=== PATIENT | female | born 1935 | race Caucasian/White ===

== ENCOUNTER 2019-07-28 10:36 | Inpatient (IN) | payer MEDICARE, OTHER, SELFPAY ==
[2019-07-28] VITALS (11 sets, daily range): BP systolic 133–187; BP diastolic 73–102; PULSE 57–86; RESP 16–19; TEMP 36.6–37; O2SAT 90–97; BMI 30.9
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
--- NOTE | 2019-07-28 10:44 | XRR_ITS ---
PROCEDURE INFORMATION: Exam: XR Chest, 1 View Exam date and time: 07/28/2019 10:50 AM Age: 83 years old Clinical indication: Other: AMS TECHNIQUE: Imaging protocol: XR of the chest Views: 1 view. COMPARISON: CR Chest 1 [place] [id number] 01/23/2019 2:54 PM FINDINGS: Tubes, catheters and devices: There are several EKG leads overlying the chest. Lungs: There is bibasilar atelectasis. Pleural space: Unremarkable. No pleural effusion. No pneumothorax. Heart/Mediastinum: There is cardiomegaly. There is prominence of the pulmonary vascular markings. These findings may represent congestive heart failure. Vasculature: There are calcified atherosclerotic changes of the aorta. Bones/joints: Patient is status post ORIF of a left clavicle fracture, please correlate with surgical history. There is moderate osteopenia. Soft tissues: There are surgical yulisa overlying the right axilla. XR/XR chest 1V portable [id number] IMPRESSION: There is cardiomegaly. There is prominence of the pulmonary vascular markings. These findings may represent congestive heart failure.
--- NOTE | 2019-07-28 10:48 | ECG_ITS ---
Measurements Intervals [place] Rate: 62 P: 95 VT: 283 QRS: -26 QRSD: 93 T: 26 QT: 447 QTc: 456 SINUS RHYTHM WITH FIRST DEGREE AV BLOCK INCOMPLETE RIGHT BUNDLE BRANCH BLOCK INFERIOR MYOCARDIAL INFARCTION, PROBABLY OLD MODERATE T-WAVE ABNORMALITY, CONSIDER ANTEROLATERAL ISCHEMIA Compared to ECG 01/23/2019 12:00:05 First degree AV block now present Incomplete right bundle-branch block now present Myocardial infarct finding still present T-wave abnormality still present Possible ischemia still present Electronically Signed On 07-28-2019 13:28:00 BOAT RIGGER by Britni Trujillo M.D. [id number]
[2019-07-28 11:28] LABS: ABG PCO2 38.4 mmHg (35-45); ABG PH Result 7.45 (7.35-7.45); Arterial Blood Gas Hematocrit 40.2 % (37-47); Base Excess ABG 2.2 mmol/L (-2.0-2.0); Blood Gas Allen Test Pos; Blood Gas Sample Site Radial, left; Blood Gas Sample Type Arterial; HCO3 ABG 26.4 mmol/L (22-26); PO2 ABG 67.6 mmHg (80.0-100.0)
[2019-07-28] MEDS: acetaminophen 500 mg Tablet 1000 MG PO (11:38)
[2019-07-28] MEDS: sodium chloride 0.9% 500 ML IV (11:39)
[2019-07-28 11:53] LABS: Basophils % 0.7 %; Eosinophils # 0.1 10^3/uL (0.0-0.8); Eosinophils % 3.6 %; Hematocrit 38.3 % (37.0-47.0); Hemoglobin 12.7 g/dL (11.5-15.3); Lymphocytes # 0.4 10^3/uL (0.8-4.8); Lymphocytes % 11.7 %; Mean Corpuscular HGB Conc 33.2 g/dL (30.0-36.0); Mean Corpuscular Hemoglobin 30.5 pg (28.0-34.0); Mean Corpuscular Volume 91.8 fL (81-99); Mean Platelet Volume 12.2 fL (7.4-10.4); Monocytes # 0.3 10^3/uL (0.2-0.9); Monocytes % 9.1 %; Neutrophils # 2.3 10^3/uL (1.8-7.7); Neutrophils % 74.6 %; Nucleated Red Blood Cells % 0 %; Platelet Count 61 10^3/cmm (130-400); Red Blood Count 4.17 10^6/uL (4.1-5.3); White Blood Count 3.1 10^3/uL (4.0-10.0)
[2019-07-28 12:00] LABS: INR 1.25 (0.8-1.2)
[2019-07-28 12:06] LABS: Lactic Sepsis W/Reflex 1.3 mmol/L (0.5-2.2)
[2019-07-28 12:08] LABS: Alanine Aminotransferase 20 U/L (0-33); Albumin Level 4.4 g/dL (3.5-5.2); Alkaline Phosphatase 111 IU/L (35-105); Aspartate Amino Transferase 33 U/L (0-32); Blood Urea Nitrogen 14 mg/dL (8-23); Calcium 10.1 mg/Dl (8.8-10.2); Carbon Dioxide 27 mmol/L (22-29); Chloride 103 mmol/L (98-107); Globulin 2.8 g/dL (1.3-4.6); Glucose 108 mg/dL (74-106); Lipase 16 U/L (13-60); Magnesium 2.1 mg/dL (1.7-2.3); Sodium 141 mmol/L (136-145); Total Bilirubin 3.1 mg/dL (0.15-1.2); Total Protein 7.2 g/dL (6.6-8.7)
[2019-07-28 12:35] LABS: Glucose Urine UA Norm (Normal); Protein Urine Neg (Negative); Specific Gravity, Urine 1.005 (1.005-1.030); Urine Appearance Clear (CLEAR); Urine Color Yellow (Yellow); pH Urine 7 (5-7)
[2019-07-28 12:36] LABS: Bilirubin Urine Neg (NEGATIVE); Blood Urine Neg (Negative); Ketones Urine Negative (Negative); Leukocyte Esterase Urine Trace (Negative); Nitrate Urine Negative (Negative); Urobilinogen Urine 1 mg/dL (Negative)
--- NOTE | 2019-07-28 12:40 | CTR_ITS ---
PROCEDURE INFORMATION: Exam: CT Abdomen And Pelvis With Contrast Exam date and time: 07/28/2019 1:46 PM Age: 83 years old Clinical indication: Abdominal pain; Generalized TECHNIQUE: Imaging protocol: Computed tomography of the abdomen and pelvis with intravenous contrast. Total DLP: 1802.54 mGy-cm Radiation optimization: All CT scans at this facility use at least one of these dose optimization techniques: automated exposure control; mA and/or kV adjustment per patient size (includes targeted exams where dose is matched to clinical indication); or iterative reconstruction. Contrast material: OMNI 300; Contrast volume: 95 ml; Contrast route: LT AC; COMPARISON: CT Pelvis w IV contrast* [id number] 01/23/2019 10:27 PM FINDINGS: Heart: There is cardiomegaly. Liver: The liver has a nodular contour. There is a 1.8 cm low-density lesion in the right hepatic lobe. Although this does not measure fluid density, this may be due to volume averaging. Gallbladder and bile ducts: Normal. No calcified stones. No ductal dilation. Pancreas: Normal. No ductal dilation. Spleen: There is splenomegaly. Adrenals: Normal. No mass. Kidneys and ureters: Normal. No hydronephrosis. Stomach and bowel: There is a duodenal diverticulum. Appendix: No evidence of appendicitis. Intraperitoneal space: Unremarkable. No free air. No significant fluid collection. Vasculature: There are atherosclerotic changes of the coronary arteries. There are multiple abdominal varices. There are calcified atherosclerotic changes of the aorta. Lymph nodes: Unremarkable. No enlarged lymph nodes. Bladder: The urinary bladder is moderately distended. There is air in the urinary bladder, please correlate with recent instrumentation. Reproductive: There is a calcified uterine fibroid. Bones/joints: There are several pelvic fractures, reported previously. Postsurgical changes are noted of the lumbar spine. Postsurgical changes are noted involving the right femur. Soft tissues: Unremarkable. CT/CT abdomen pelvis w con* [id number] IMPRESSION: 1. Constellation of findings consistent with cirrhosis and portal venous hypertension. 2. There is a 1.8 cm low-density lesion in the right hepatic lobe. Although this does not measure fluid density, this may be due to volume averaging. Direct comparison to prior exams is recommended. In the absence of prior studies for comparison purposes, close followup imaging is necessary considering the presence of cirrhosis and corresponding increased risk of malignancy. 3. The urinary bladder is moderately distended. There is air in the urinary bladder, please correlate with recent instrumentation. Radiation Dose CTDIVOL = (mGy): DLP = 1802.54 (mGy-cm)
[2019-07-28 12:45] LABS: Influenza A by IFA Negative (Negative); Influenza B by IFA Negative (Negative)
--- NOTE | 2019-07-28 12:48 | ECG_ITS ---
Measurements Intervals [place] Rate: 60 P: 93 NJ: 281 QRS: -1 QRSD: 93 T: 62 QT: 454 QTc: 456 SINUS RHYTHM WITH FIRST DEGREE AV BLOCK ST DEVIATION AND MODERATE T-WAVE ABNORMALITY, CONSIDER ANTERIOR ISCHEMIA [-0.1+ mV T WAVE IN V3/V4] Compared to ECG 07/28/2019 11:18:50 Incomplete right bundle-branch block no longer present Myocardial infarct finding no longer present T-wave abnormality still present Possible ischemia still present Electronically Signed On 07-28-2019 14:58:59 SAFETY REPRESENTATIVE by Britin Trujillo M.D. [id number]
[2019-07-28 12:52] LABS: Mucus Urine TRACE
[2019-07-28 12:54] LABS: Add Urine Culture? No; Bacteria Urine 1+; RBC Urine 0-4 /hpf (0-2); Squamous Epithelial Cell Urine 0-4 (0-5)
[2019-07-28] MEDS: piperacillin-tazobactam 3.375 GM in sodium chloride 0.9% (plus) 50 ML IV (12:58)
[2019-07-28 13:12] LABS: Oxygen Device ROOM AIR
[2019-07-28 14:51] LABS: Ammonia 46 umol/L (11-51)
--- NOTE | 2019-07-28 16:36 | P.HP_ITS ---
Providers/Chief Complaint Primary Care Provider: XIN Leal Chief Complaint: AMS History of Present Illness Rachelle Apodaca is a 83 year old female with a past medical history of liver cirrhosis with esophageal varices, chronic thrombocytopenia, hepatic encephalopathy, hypothyroidism, hyperlipidemia, GERD, bilateral cataracts, right Cedeno's palsy, history of intertrochanteric fracture right hip status post ORIF, bilateral pubic rami fractures, breast cancer, dementia who presents to the emergency room with her daughter due to complaints altered mental status, weakness, increased urinary frequency. Patient's daughter is at bedside who provides most of the history. Patient's daughter states that back in January, patient had a fall, had a intertrochanteric fracture of the right hip, status post open reduction internal fixation. Patient daughter states that since then, she has been doing well at home, she takes care of her mom at home, she is alert oriented x1, is quite forgetful at times, has short-term memory loss, some developing long-term memory loss, has episodes of confusion which are intermittent, does ambulate with a walker with assistance, requires help with activity of daily living, but can do things such as feed herself. Patient daughter states that last night patient had increased urinary frequency, had episodes of more than normal confusion, agitation, poor appetite, did not eat her dinner last night. Woke up this morning had more episodes of confusion, agitation, poor appetite, did not get out of bed, was fairly weak. Patient's daughter states that she has to some degree noticed for the past few months slurring of her speech, she has right Cedeno's palsy, so is hard to gauge if she has facial droop, no focal neurologic deficits, patient did not voice any significant complaints to family members. No history of strokes in the past. No significant receptive aphasia. No significant productive aphasia. No complaints of lightheadedness. No complaints of dizziness. She only complains of some neck pain, some feeling in her chest, and right knee pain, right hip pain Review of Systems Const: Denies: fever or chills Eyes: Reports: change in vision ENMT: Reports: nasal discharge Card: Denies: chest pain, lightheadedness or syncope Resp: Denies: shortness of breath or productive cough GI: Denies: abdominal pain, nausea, vomiting, vomiting blood or diarrhea : Reports: urinary frequency; Denies: flank pain, difficulty urinating, painful urination, urinary urgency, urinary hesitancy or urinary dribbling Musc: Reports: neck pain and joint pain Skin/Breast: Reports: rash Neuro: Reports: weakness in extremities, difficulty walking and confusion; Denies: headache, numbness in extremities, dizziness, vertigo or seizure-like activity Endo: Reports: excessive urination Mauricio/Lymph: Reports: easy bruising Medications/Allergies Home Medications Medication Instructions Recorded Confirmed Last Taken Type ascorbic acid (vitamin C) [Vitamin 500 mg PO DAILY 07/28/19 07/28/19 07/27/19 History C] calcium carbonate-vitamin D3 1 tab PO DAILY 07/28/19 07/28/19 07/27/19 History [Calcium 600 + D(3)] cranberry 15,000 mg PO DAILY PRN 07/28/19 07/28/19 Unknown History donepezil 10 mg PO BEDTIME 07/28/19 07/28/19 07/27/19 History furosemide [Lasix] 20 mg PO DAILY PRN 07/28/19 07/28/19 Unknown History lactulose [Constulose] 15 ml PO DAILY 07/28/19 07/28/19 07/27/19 History levothyroxine 125 mcg PO DAILY 07/28/19 07/28/19 07/27/19 History memantine 10 mg PO BID 07/28/19 07/28/19 07/27/19 History mirtazapine 15 mg PO BEDTIME 07/28/19 07/28/19 07/27/19 History multivitamin [Multiple Vitamins] 1 tab PO DAILY 07/28/19 07/28/19 07/27/19 History nadolol 20 mg PO DAILY 07/28/19 07/28/19 07/27/19 History oxycodone 5 mg PO Q6H PRN 07/28/19 07/28/19 07/27/19 History pantoprazole [Protonix] 40 mg PO DAILY 07/28/19 07/28/19 07/27/19 History quetiapine [Seroquel] 50 mg PO BID 07/28/19 07/28/19 07/27/19 History vitamin B complex [Super B-50 1 cap PO DAILY 07/28/19 07/28/19 07/27/19 History Complex] Allergies Allergy/AdvReac Type Severity Reaction Status Date / Time cefaclor [From Ceclor] Allergy Unknown Verified 07/28/19 10:49 ceftazidime [From Fortaz] Allergy Unknown Verified 07/28/19 10:49 lorazepam [From Ativan] Allergy Unknown Verified 07/28/19 10:49 Sulfa (Sulfonamide Allergy Unknown Verified 07/28/19 10:49 Antibiotics) PFSH Acute PFSH: Statuses (acute, chronic, etc) shown below reflect problem list status as previously entered and may not be historically accurate Medical History (Updated 07/28/19 @ 16:47 by Lobo Lew MD) Bilateral pubic rami fractures (Acute) Closed right femoral fracture (Acute) Hepatic encephalopathy (Acute) History of breast cancer (Acute) History of esophageal varices (Acute) 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 (Acute) Thrombocytopenia (Acute) Surgical History (Updated 07/28/19 @ 16:49 by Lobo Lew MD) H/O knee surgery (Acute) H/O mastectomy (Acute) History of hip surgery (Acute) Family History (Updated 07/28/19 @ 16:49 by Lobo Lew MD) Daughter CAD (coronary artery disease) Other Diabetes Social History (Updated 07/28/19 @ 16:49 by Lobo Lew MD) Smoking and tobacco status: never smoked Alcohol intake: never Substance/Drug Use: never Vitals/I&O/Wt Last Vital Signs Temp 97.9 F 07/28/19 10:37 Pulse 72 07/28/19 16:00 Resp 19 H 07/28/19 16:00 BP 165/85 07/28/19 16:00 Pulse Ox 92 07/28/19 16:00 07/28/19 07/28/19 07/28/19 06:59 14:59 22:59 Intake Total 650 / 650 Balance 650 / 650 Weight last 48 hrs Weight 81.647 kg Physical Exam Const: COMMON NORMALS: no apparent distress GENERAL APPEARANCE: cooperative and well kempt NUTRITIONAL APPEARANCE: obese ORIENTATION/CONSCIOUSNESS: Yes awake, Yes oriented to person and Yes confused; not oriented to place and not oriented to time HENMT: COMMON NORMALS: normocephalic Eye: COMMON NORMALS: PERRL and EOMs intact bilaterally Neck/C-Spine: COMMON NORMALS: full ROM, no lymphadenopathy and no JVD Lymph: LYMPHATIC: no lymphadenopathy noted Resp: COMMON NORMALS: normal respiratory effort, no retractions, no use of accessory muscles and clear to auscultation bilaterally Cardio: COMMON NORMALS: no JVD, regular rate, regular rhythm, S1 normal heart sound, S2 normal heart sound, no gallops, no clicks, no murmurs and no rub GI: COMMON NORMALS: normal to inspection, nondistended, normoactive bowel sounds, soft to palpation, non-tender, no hepatosplenomegaly, no masses and no bruits : COMMON NORMALS: Yes no CVA tenderness Back/Pelvis: COMMON NORMALS: no CVA tenderness Extremity: COMMON NORMALS: full ROM, no clubbing, cyanosis or edema, no calf tenderness and no pedal edema Neuro: COMMON NORMALS: CN's II-XII intact bilaterally, moves all extremities and no focal motor deficits SENSORIUM/ORIENTATION: Yes alert, Yes oriented to person, No oriented to place, No oriented to time and Yes fluctuating sensorium SPEECH: speech normal and other (Slight slurring of her speech at times,) MOTOR EXAM: strength 5/5 throughout COORDINATION: [id number] test normal (Unable to cooperate with exam) Psych: APPEARANCE: Yes grossly normal ATTITUDE: Yes agitated (Does become agitated at times,) SPEECH: Yes normal speech and Yes slurred (At times does have slurred speech, intermittent, chronic as per family) ATTENTION/CONCENTRATION: Yes attention grossly intact MEMORY/COGNITION: Yes memory grossly impaired Skin: NARRATIVE SKIN EXAM: Does have bruising on bilateral arms Data Micro: Micro: Microbiology 07/28/19 11:34 Blood Culture - Pr eliminary Blood SPE[facility]IMEN [facility] 07/28/19 11:41 Blood Culture - Pr eliminary Blood SPECIMEN [facility] Imaging^: CT Head: Radiologist's impression: FINDINGS: Brain: There is low attenuation abnormality in the periventricular white matter, likely reflecting chronic microvascular ischemic disease. Ventricles: Normal. No ventriculomegaly. Bones/joints: Unremarkable. No acute fracture. Sinuses: There is mild sinus disease. Mastoid air cells: Visualized mastoid air cells are well aerated. Soft tissues: Unremarkable. CT Abd/Pel: Radiologist's impression: 1. Constellation of findings consistent with cirrhosis and portal venous hypertension. 2. There is a 1.8 cm low-density lesion in the right hepatic lobe. Although this does not measure fluid density, this may be due to volume averaging. Direct comparison to prior exams is recommended. In the absence of prior studies for comparison purposes, close followup imaging is necessary considering the presence of cirrhosis and corresponding increased risk of malignancy. 3. The urinary bladder is moderately distended. There is air in the urinary bladder, please correlate with recent instrumentation. CXR: Radiologist's impression: There is cardiomegaly. There is prominence of the pulmonary vascular markings. These findings may represent congestive heart failure. EKG^: EKG 1: I personally reviewed and interpreted this EKG as follows: My Interpretation: T wave inversions V1 to V4, first-degree AV block, incomplete RBBB, no acute ST wave changes Prior ECG tracings: not available for review A&P Assessment and plan (1) Altered mental status: -Likely secondary to urinary tract infection -Patient follows neurologic examination, no focal neurologic deficits noted, did have intermittent slurring of her speech, but daughter states that she is had a chronic history of it for the past few months, patient CT of her head did show low attenuation abnormality in the periventricular white matter,likely reflecting chronic microvascular ischemic diseaseand If an acute infarct is clinically suspected, consider MRI with diffusion imaging Plan: -Follow urine cultures, blood cultures -Continue Primaxin -We will continue neuro checks, place the patient on statin, patient is to have a high risk to start on aspirin due to esophageal varices, and thrombocytopenia, patient's family is aware, advised the risk and benefits, agreed to proceed to hold -Consider MRI if mental status does not improve -DVT prophylaxis SCDs, anticoagulation contraindicated due to esophageal varices and thrombocytopenia Status: Acute Code(s): R41.82 - Altered mental status, unspecified (2) Urinary tract infection in elderly patient: As above Status: Acute Code(s): N39.0 - Urinary tract infection, site not specified (3) Liver lesion, right lobe: Will require outpatient follow-up Status: Acute Code(s): K76.9 - Liver disease, unspecified (4) Breast lump in female: Is being followed as outpatient Status: Acute Code(s): N63.0 - Unspecified lump in unspecified breast (5) GERD (gastroesophageal reflux disease): Status: Acute Code(s): K21.9 - Gastro-esophageal reflux disease without esophagitis (6) Hyperlipidemia: Status: Acute Code(s): E78.5 - Hyperlipidemia, unspecified (7) Bilateral cataracts: Status: Acute Code(s): H26.9 - Unspecified cataract (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 (9) Hepatic encephalopathy: Ammonia levels within normal limits Status: Acute Code(s): K72.90 - Hepatic failure, unspecified without coma (10) Thrombocytopenia: Status: Acute Code(s): D69.6 - Thrombocytopenia, unspecified (11) History of esophageal varices: No complaints of hemoptysis Status: Acute Code(s): Z87.19 - Personal history of other diseases of the digestive system (12) 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: Status: Acute Code(s): K75.81 - Nonalcoholic steatohepatitis (FLOYD); K74.60 - Unspecified cirrhosis of liver Attestations Medical Necessity Statement*: Patient requires inpatient admission, greater than 2 midnights, for altered mental status secondary to UTI Coding Level of Care Code Acute Central Office Equipment Installer for Chg 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
--- NOTE | 2019-07-28 16:48 | ECG_ITS ---
Measurements Intervals [place] Rate: 58 P: 87 MI: 273 QRS: -6 QRSD: 106 T: 65 QT: 494 QTc: 488 SINUS BRADYCARDIA WITH FIRST DEGREE AV BLOCK ST DEVIATION AND MODERATE T-WAVE ABNORMALITY, CONSIDER ANTERIOR ISCHEMIA Compared to ECG 07/28/2019 12:49:26 Sinus rhythm no longer present T-wave abnormality still present Possible ischemia still present Electronically Signed On 07-29-2019 11:24:21 MANAGER TRACK by Britni Trujillo M.D. [email or web address]
--- NOTE | 2019-07-28 17:00 | W.ED.AMS ---
HPI - Altered Mental Status General: Chief Complaint: Altered Mental Status Stated Complaint: AMS Time Seen by Provider: 07/28/19 10:38 PFSH ED PFSH: Statuses (acute, chronic, etc) shown below reflect problem list status as previously entered and may not be historically accurate Medical History (Updated 07/28/19 @ 16:47 by Lobo Lew MD) Bilateral pubic rami fractures (Acute) Closed right femoral fracture (Acute) Hepatic encephalopathy (Acute) History of breast cancer (Acute) History of esophageal varices (Acute) 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 (Acute) Thrombocytopenia (Acute) Surgical History (Updated 07/28/19 @ 16:49 by Lobo Lew MD) H/O knee surgery (Acute) H/O mastectomy (Acute) History of hip surgery (Acute) Family History (Updated 07/28/19 @ 16:49 by Lobo Lew MD) Daughter CAD (coronary artery disease) Other Diabetes Social History (Updated 07/28/19 @ 16:49 by Lobo Lew MD) Smoking and tobacco status: never smoked Alcohol intake: never Substance/Drug Use: never Course Vital Signs: Vital signs: Vital Signs Temperature 97.9 F 07/28/19 10:37 Pulse Rate 72 07/28/19 16:00 Respiratory Rate 19 H 07/28/19 16:00 Blood Pressure 165/85 07/28/19 16:00 Pulse Oximetry 92 07/28/19 16:00 MDM - Altered Mental Status Lab Data: Labs: Lab Results 07/28/19 07/28/19 07/28/19 Range/Units 11:17 11:34 11:34 WBC 3.1 L (4.0-10.0) 10^3/ uL RBC 4.17 (4.1-5.3) 10^6/u L Hgb 12.7 (11.5-15.3) g/dL Hct 38.3 (37.0-47.0) % MCV 91.8 (81-99) fL MCH 30.5 (28.0-34.0) pg MCHC 33.2 (30.0-36.0) g/dL RDW 15.0 (12.1-15.1) % Plt Count 61 L (130-400) 10^3/c mm MPV 12.2 H (7.4-10.4) fL Neut % (Auto) 74.6 % Lymph % (Auto) 11.7 % Park % (Auto) 9.1 % Eos % (Auto) 3.6 % Baso % (Auto) 0.7 % Neut # (Auto) 2.3 (1.8-7.7) 10^3/u L Lymph # (Auto) 0.4 L (0.8-4.8) 10^3/u L Park # (Auto) 0.3 (0.2-0.9) 10^3/u L Eos # (Auto) 0.1 (0.0-0.8) 10^3/u L Baso # (Auto) 0.0 (0.0-0.1) 10^3/u L Nucleated RBC % (a uto) 0 % Nucleated RBCs # 0.0 /100WBC PT (10.5-13.3) SECO NDS INR (0.8-1.2) Specimen Type Arterial Sample Site Radial, left ABG pH 7.45 (7.35-7.45) ABG pCO2 38.4 (35-45) mmHg ABG pO2 67.6 L (80.0-100.0) mmH g ABG HCO3 26.4 H (22-26) mmol/L ABG Base Excess 2.2 H (-2.0-2.0) mmol/ L Krishna Test Pos Hematocrit 40.2 (37-47) % O2 Delivery Device Room air FiO2 21.0 % Specimen Drawn By Duner Chief Credit Officer ID ed Sodium 141 (136-145) mmol/L Potassium 4.0 (3.5-5.1) mmol/L Chloride 103 (98-107) mmol/L Carbon Dioxide 27 (22-29) mmol/L Anion Gap 15.0 (5-19) BUN 14 (8-23) mg/dL Creatinine 0.8 (0.5-0.9) mg/dL Glucose 108 H (74-106) mg/dL Lactic Acid (0.5-2.2) mmol/L Calcium 10.1 (8.8-10.2) mg/Dl Magnesium 2.1 (1.7-2.3) mg/dL Total Bilirubin 3.1 H (0.15-1.2) mg/dL AST 33 H (0-32) U/L ALT 20 (0-33) U/L Alkaline Phosphata se 111 H (35-105) IU/L Ammonia (11-51) umol/L Troponin I 6 Hour (0-10) ng/L Troponin T Baselin e (0-10) ng/mL Total Protein 7.2 (6.6-8.7) g/dL Albumin 4.4 (3.5-5.2) g/dL Globulin 2.8 (1.3-4.6) g/dL Lipase 16 (13-60) U/L Urine Color (Yellow) Urine Appearance (CLEAR) Urine pH (5-7) Ur Specific Gravit y (1.005-1.030) Urine Protein (Negative) Urine Glucose (UA) (Normal) Urine Ketones (Negative) Urine Occult Blood (Negative) Urine Nitrate (Negative) Urine Bilirubin (NEGATIVE) Urine Urobilinogen (Negative) mg/dL Ur Leukocyte Radha ase (Negative) Urine RBC (0-2) /hpf Urine WBC (0-5) /hpf Ur Squamous Epith Cells (0-5) Urine Bacteria (NONE) Urine Mucus Influenza Type A A g (Negative) POC Influenza B Ag (Negative) 07/28/19 07/28/19 07/28/19 Range/Units 11:34 11:34 11:34 WBC (4.0-10.0) 10^3/ uL RBC (4.1-5.3) 10^6/u L Hgb (11.5-15.3) g/dL Hct (37.0-47.0) % MCV (81-99) fL MCH (28.0-34.0) pg MCHC (30.0-36.0) g/dL RDW (12.1-15.1) % Plt Count (130-400) 10^3/c mm MPV (7.4-10.4) fL Neut % (Auto) % Lymph % (Auto) % Park % (Auto) % Eos % (Auto) % Baso % (Auto) % Neut # (Auto) (1.8-7.7) 10^3/u L Lymph # (Auto) (0.8-4.8) 10^3/u L Park # (Auto) (0.2-0.9) 10^3/u L Eos # (Auto) (0.0-0.8) 10^3/u L Baso # (Auto) (0.0-0.1) 10^3/u L Nucleated RBC % (a uto) % Nucleated RBCs # /100WBC PT 16.10 H (10.5-13.3) SECO NDS INR 1.25 H (0.8-1.2) Specimen Type Sample Site ABG pH (7.35-7.45) ABG pCO2 (35-45) mmHg ABG pO2 (80.0-100.0) mmH g ABG HCO3 (22-26) mmol/L ABG Base Excess (-2.0-2.0) mmol/ L Krishna Test Hematocrit (37-47) % O2 Delivery Device FiO2 % Specimen Drawn By Chief Credit Officer ID Sodium (136-145) mmol/L Potassium (3.5-5.1) mmol/L Chloride (98-107) mmol/L Carbon Dioxide (22-29) mmol/L Anion Gap (5-19) BUN (8-23) mg/dL Creatinine (0.5-0.9) mg/dL Glucose (74-106) mg/dL Lactic Acid 1.3 (0.5-2.2) mmol/L Calcium (8.8-10.2) mg/Dl Magnesium (1.7-2.3) mg/dL Total Bilirubin (0.15-1.2) mg/dL AST (0-32) U/L ALT (0-33) U/L Alkaline Phosphata se (35-105) IU/L Ammonia (11-51) umol/L Troponin I 6 Hour (0-10) ng/L Troponin T Baselin e 12 H (0-10) ng/mL Total Protein (6.6-8.7) g/dL Albumin (3.5-5.2) g/dL Globulin (1.3-4.6) g/dL Lipase (13-60) U/L Urine Color (Yellow) Urine Appearance (CLEAR) Urine pH (5-7) Ur Specific Gravit y (1.005-1.030) Urine Protein (Negative) Urine Glucose (UA) (Normal) Urine Ketones (Negative) Urine Occult Blood (Negative) Urine Nitrate (Negative) Urine Bilirubin (NEGATIVE) Urine Urobilinogen (Negative) mg/dL Ur Leukocyte Radha ase (Negative) Urine RBC (0-2) /hpf Urine WBC (0-5) /hpf Ur Squamous Epith Cells (0-5) Urine Bacteria (NONE) Urine Mucus Influenza Type A A g (Negative) POC Influenza B Ag (Negative) 07/28/19 07/28/19 07/28/19 Range/Units 11:50 11:50 13:57 WBC (4.0-10.0) 10^3/ uL RBC (4.1-5.3) 10^6/u L Hgb (11.5-15.3) g/dL Hct (37.0-47.0) % MCV (81-99) fL MCH (28.0-34.0) pg MCHC (30.0-36.0) g/dL RDW (12.1-15.1) % Plt Count (130-400) 10^3/c mm MPV (7.4-10.4) fL Neut % (Auto) % Lymph % (Auto) % Park % (Auto) % Eos % (Auto) % Baso % (Auto) % Neut # (Auto) (1.8-7.7) 10^3/u L Lymph # (Auto) (0.8-4.8) 10^3/u L Park # (Auto) (0.2-0.9) 10^3/u L Eos # (Auto) (0.0-0.8) 10^3/u L Baso # (Auto) (0.0-0.1) 10^3/u L Nucleated RBC % (a uto) % Nucleated RBCs # /100WBC PT (10.5-13.3) SECO NDS INR (0.8-1.2) Specimen Type Sample Site ABG pH (7.35-7.45) ABG pCO2 (35-45) mmHg ABG pO2 (80.0-100.0) mmH g ABG HCO3 (22-26) mmol/L ABG Base Excess (-2.0-2.0) mmol/ L Krishna Test Hematocrit (37-47) % O2 Delivery Device FiO2 % Specimen Drawn By Chief Credit Officer ID Sodium (136-145) mmol/L Potassium (3.5-5.1) mmol/L Chloride (98-107) mmol/L Carbon Dioxide (22-29) mmol/L Anion Gap (5-19) BUN (8-23) mg/dL Creatinine (0.5-0.9) mg/dL Glucose (74-106) mg/dL Lactic Acid (0.5-2.2) mmol/L Calcium (8.8-10.2) mg/Dl Magnesium (1.7-2.3) mg/dL Total Bilirubin (0.15-1.2) mg/dL AST (0-32) U/L ALT (0-33) U/L Alkaline Phosphata se (35-105) IU/L Ammonia (11-51) umol/L Troponin I 6 Hour 12.45 H (0-10) ng/L Troponin T Baselin e (0-10) ng/mL Total Protein (6.6-8.7) g/dL Albumin (3.5-5.2) g/dL Globulin (1.3-4.6) g/dL Lipase (13-60) U/L Urine Color Yellow (Yellow) Urine Appearance Clear (CLEAR) Urine pH 7 (5-7) Ur Specific Gravit y 1.005 (1.005-1.030) Urine Protein Neg (Negative) Urine Glucose (UA) Norm (Normal) Urine Ketones Negative (Negative) Urine Occult Blood Neg (Negative) Urine Nitrate Negative (Negative) Urine Bilirubin Neg (NEGATIVE) Urine Urobilinogen 1 H (Negative) mg/dL Ur Leukocyte Radha ase Trace H (Negative) Urine RBC 0-4 H (0-2) /hpf Urine WBC 10-15 H (0-5) /hpf Ur Squamous Epith Cells 0-4 H (0-5) Urine Bacteria 1+ H (NONE) Urine Mucus Trace Influenza Type A A g Negative (Negative) POC Influenza B Ag Negative (Negative) 07/28/19 Range/Units 14:26 WBC (4.0-10.0) 10^3/ uL RBC (4.1-5.3) 10^6/u L Hgb (11.5-15.3) g/dL Hct (37.0-47.0) % MCV (81-99) fL MCH (28.0-34.0) pg MCHC (30.0-36.0) g/dL RDW (12.1-15.1) % Plt Count (130-400) 10^3/c mm MPV (7.4-10.4) fL Neut % (Auto) % Lymph % (Auto) % Park % (Auto) % Eos % (Auto) % Baso % (Auto) % Neut # (Auto) (1.8-7.7) 10^3/u L Lymph # (Auto) (0.8-4.8) 10^3/u L Park # (Auto) (0.2-0.9) 10^3/u L Eos # (Auto) (0.0-0.8) 10^3/u L Baso # (Auto) (0.0-0.1) 10^3/u L Nucleated RBC % (a uto) % Nucleated RBCs # /100WBC PT (10.5-13.3) SECO NDS INR (0.8-1.2) Specimen Type Sample Site ABG pH (7.35-7.45) ABG pCO2 (35-45) mmHg ABG pO2 (80.0-100.0) mmH g ABG HCO3 (22-26) mmol/L ABG Base Excess (-2.0-2.0) mmol/ L Krishna Test Hematocrit (37-47) % O2 Delivery Device FiO2 % Specimen Drawn By Chief Credit Officer ID Sodium (136-145) mmol/L Potassium (3.5-5.1) mmol/L Chloride (98-107) mmol/L Carbon Dioxide (22-29) mmol/L Anion Gap (5-19) BUN (8-23) mg/dL Creatinine (0.5-0.9) mg/dL Glucose (74-106) mg/dL Lactic Acid (0.5-2.2) mmol/L Calcium (8.8-10.2) mg/Dl Magnesium (1.7-2.3) mg/dL Total Bilirubin (0.15-1.2) mg/dL AST (0-32) U/L ALT (0-33) U/L Alkaline Phosphata se (35-105) IU/L Ammonia 46 (11-51) umol/L Troponin I 6 Hour (0-10) ng/L Troponin T Baselin e (0-10) ng/mL Total Protein (6.6-8.7) g/dL Albumin (3.5-5.2) g/dL Globulin (1.3-4.6) g/dL Lipase (13-60) U/L Urine Color (Yellow) Urine Appearance (CLEAR) Urine pH (5-7) Ur Specific Gravit y (1.005-1.030) Urine Protein (Negative) Urine Glucose (UA) (Normal) Urine Ketones (Negative) Urine Occult Blood (Negative) Urine Nitrate (Negative) Urine Bilirubin (NEGATIVE) Urine Urobilinogen (Negative) mg/dL Ur Leukocyte Radha ase (Negative) Urine RBC (0-2) /hpf Urine WBC (0-5) /hpf Ur Squamous Epith Cells (0-5) Urine Bacteria (NONE) Urine Mucus Influenza Type A A g (Negative) POC Influenza B Ag (Negative) Discharge Plan Discharge Patient Disposition: Admitted As Inpatient Admit Provider: Lobo Lew Clinical Impression: Altered mental status, Sepsis Condition: Stable Referrals: [facility] [Other] Coding Level of Care Code ED Access Tech for Shagufta Pizano
[2019-07-28 18:44] LABS: Ammonia 72 umol/L (11-51)
[2019-07-28 18:57] LABS: Troponin(5th) Baseline 12 ng/mL (0-10)
[2019-07-28 18:58] LABS: Troponin 5 2HR 12.45 ng/mL (0-10); Troponin 5 2HR Delta 0.45 ABS# (0-10)
[2019-07-28] MEDS: sodium chloride 0.9% 1,000 ML 75 ML IV (20:15)
[2019-07-28] MEDS: donepezil 5 MG Tablet 10 MG PO (20:22)
[2019-07-28] MEDS: quetiapine 25 mg Tablet 50 MG PO (20:23)
[2019-07-28] MEDS: mirtazapine 15 mg Tablet PO (20:23)
[2019-07-28] MEDS: memantine 5 mg tablet 10 MG PO (20:24)
[2019-07-29 04:00] VITALS: BP 176/82; PULSE 64; RESP 18; TEMP 37.1; O2SAT 93
[2019-07-29 06:32] LABS: Basophils % 0.5 %; Eosinophils # 0.1 10^3/uL (0.0-0.8); Eosinophils % 6.6 %; Hematocrit 34.6 % (37.0-47.0); Hemoglobin 11.4 g/dL (11.5-15.3); Lymphocytes # 0.4 10^3/uL (0.8-4.8); Lymphocytes % 20.2 %; Mean Corpuscular HGB Conc 32.9 g/dL (30.0-36.0); Mean Corpuscular Hemoglobin 31.4 pg (28.0-34.0); Mean Corpuscular Volume 95.3 fL (81-99); Mean Platelet Volume 12.9 fL (7.4-10.4); Monocytes # 0.2 10^3/uL (0.2-0.9); Monocytes % 11.6 %; Neutrophils # 1.2 10^3/uL (1.8-7.7); Neutrophils % 60.6 %; Nucleated Red Blood Cells % 0 %; Platelet Count 51 10^3/cmm (130-400); Red Blood Count 3.63 10^6/uL (4.1-5.3); Red Cell Distribution Width 15.1 % (12.1-15.1)
[2019-07-29 06:45] LABS: Alanine Aminotransferase 15 U/L (0-33); Albumin Level 4.2 g/dL (3.5-5.2); Alkaline Phosphatase 83 IU/L (35-105); Anion Gap 14.6 (5-19); Aspartate Amino Transferase 26 U/L (0-32); Blood Urea Nitrogen 10 mg/dL (8-23); Calcium 9.3 mg/Dl (8.8-10.2); Carbon Dioxide 23 mmol/L (22-29); Chloride 108 mmol/L (98-107); Globulin 1.7 g/dL (1.3-4.6); Glucose 93 mg/dL (74-106); Potassium 3.6 mmol/L (3.5-5.1); Sodium 142 mmol/L (136-145); Total Bilirubin 2.1 mg/dL (0.15-1.2); Total Protein 5.9 g/dL (6.6-8.7)
[2019-07-29 07:21] VITALS: BP 168/80; PULSE 76; RESP 22; TEMP 37.1; O2SAT 95
[2019-07-29] MEDS: calcium carb-vit d 600mg/400unit 1 Tablet 1 EACH PO (10:35)
[2019-07-29] MEDS: multivitamin therapeutic Tablet 1 TAB PO (10:36)
[2019-07-29] MEDS: ascorbic acid 500 mg Tablet PO (10:36)
[2019-07-29] MEDS: levothyroxine 125 mcg Tablet PO (10:36)
[2019-07-29] MEDS: pantoprazole DR 40 mg Tablet PO (10:37)
[2019-07-29] MEDS: b-complex-vitamin c Tablet 1 EACH PO (10:37)
[2019-07-29] MEDS: quetiapine 25 mg Tablet 50 MG PO ×2 (10:37→20:35)
[2019-07-29] MEDS: atorvastatin 40 mg Tablet PO (10:38)
[2019-07-29] MEDS: memantine 5 mg tablet 10 MG PO ×2 (10:48→17:46)
[2019-07-29] MEDS: sodium chloride 0.9% 1,000 ML 75 ML IV ×2 (10:50→21:13)
[2019-07-29 12:00] VITALS: BP 132/78; PULSE 76; RESP 20; TEMP 37.1; O2SAT 97
--- NOTE | 2019-07-29 13:02 | PC.OT ---
OT note: OT evaluation attempted in am and pm. Patient extremely sleepy from seroquel medication that was given to her at 10:00 am. Patient unable to keep eyes open to eat lunch. Discussed with patient's daughter and spouse that therapy will check back tomorrow when more appropriate. Daughter reports that she talked with nursing staff that patient is given medication at 7-7:30am when she is home. Nurse aware.
--- NOTE | 2019-07-29 15:03 | P.PN_ITS ---
Subjective Subjective: Interval history: This morning patient is more alert, more awake, more oriented, answers questions appropriate, moves all upper lower extremities appropriately, states that she is hungry, would like something more substantial, recognizes family members, states that she wants to get out of the hospital, she wants to go home Overnight patient to the the nurse vocalize 3 times that her family has dropped her down in bed, this was hotlined, however patient has not voiced these complaints to me, patient family is fairly involved in her care, seem very reliable, will continue to monitor Vitals/I&O/Wt Last Vital Signs Temp 98.7 F 07/29/19 12:00 Pulse 76 07/29/19 12:00 Resp 20 H 07/29/19 12:00 BP 132/78 07/29/19 12:00 Pulse Ox 97 07/29/19 12:00 07/29/19 07/29/19 07/29/19 06:59 14:59 22:59 Intake Total 755 / 1510 1173.75 / 1173.75 Balance 755 / 1510 1173.75 / 1173.75 Weight last 48 hrs Weight 102.104 kg Weight 81.647 kg Physical Exam Const: COMMON NORMALS: no apparent distress and alert GENERAL APPEARANCE: cooperative and well kempt NUTRITIONAL APPEARANCE: obese ORIENTATION/CONSCIOUSNESS: Yes awake, Yes oriented to person and Yes confused; not oriented to place and not oriented to time Neck/C-Spine: COMMON NORMALS: no JVD Lymph: LYMPHATIC: no lymphadenopathy noted Resp: COMMON NORMALS: normal respiratory effort, no retractions, no use of accessory muscles and clear to auscultation bilaterally AUSCULTATION: clear to auscultation bilaterally Cardio: COMMON NORMALS: no JVD, regular rate, regular rhythm, S1 normal heart sound, S2 normal heart sound, no gallops, no clicks, no murmurs and no rub RATE: regular rate RHYTHM: regular rhythm HEART SOUNDS: S1 normal and S2 normal GI: COMMON NORMALS: normal to inspection, nondistended, normoactive bowel sounds, soft to palpation, non-tender, no hepatosplenomegaly, no masses and no bruits PALPATION: Yes soft and Yes no hepatosplenomegaly Extremity: COMMON NORMALS: full ROM, no clubbing, cyanosis or edema, no calf tenderness and no pedal edema Neuro: COMMON NORMALS: CN's II-XII intact bilaterally, moves all extremities and no focal motor deficits SENSORIUM/ORIENTATION: Yes alert, Yes oriented to person, No oriented to place, No oriented to time and Yes fluctuating sensorium COORDINATION/BALANCE: [id number] test normal (Unable to cooperate with exam) SPEECH: speech normal and other (Slight slurring of her speech at times,) MOTOR EXAM: strength 5/5 throughout COORDINATION: [id number] test normal (Unable to cooperate with exam) Psych: COMMON NORMALS: speech normal APPEARANCE: Yes grossly normal and Yes well kempt ATTITUDE: Yes agitated (Does become agitated at times,) SPEECH: Yes normal speech and Yes slurred (At times does have slurred speech, intermittent, chronic as per family) ATTENTION/CONCENTRATION: Yes attention grossly intact MEMORY/COGNITION: Yes memory grossly impaired Data Micro: Micro: Microbiology 07/28/19 11:34 Blood Culture - Pr eliminary Blood NEGATIVE TO EMILY E 07/28/19 11:41 Blood Culture - Pr eliminary Blood NEGATIVE TO EMILY E 07/28/19 11:50 Urine Culture - Pr eliminary Urine Catheterize d A&P Assessment and plan (1) Altered mental status: -Likely secondary to urinary tract infection -Patient follows neurologic examination, no focal neurologic deficits noted, did have intermittent slurring of her speech, but daughter states that she is had a chronic history of it for the past few months, patient CT of her head did show low attenuation abnormality in the periventricular white matter,likely reflecting chronic microvascular ischemic diseaseand If an acute infarct is clinically suspected, consider MRI with diffusion imaging Plan: -Follow urine cultures, blood cultures -Continue Primaxin -We will continue neuro checks, place the patient on statin, patient is to have a high risk to start on aspirin due to esophageal varices, and thrombocytopenia, patient's family is aware, advised the risk and benefits, agreed to proceed to hold -Consider MRI if mental status does not improve -DVT prophylaxis SCDs, anticoagulation contraindicated due to esophageal varices and thrombocytopenia Status: Acute Code(s): R41.82 - Altered mental status, unspecified (2) Urinary tract infection in elderly patient: As above Status: Acute Code(s): N39.0 - Urinary tract infection, site not specified (3) Liver lesion, right lobe: Will require outpatient follow-up Status: Acute Code(s): K76.9 - Liver disease, unspecified (4) Breast lump in female: Is being followed as outpatient Status: Acute Code(s): N63.0 - Unspecified lump in unspecified breast (5) GERD (gastroesophageal reflux disease): Status: Acute Code(s): K21.9 - Gastro-esophageal reflux disease without esophagitis (6) Hyperlipidemia: Status: Acute Code(s): E78.5 - Hyperlipidemia, unspecified (7) Bilateral cataracts: Status: Acute Code(s): H26.9 - Unspecified cataract (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 (9) Hepatic encephalopathy: Ammonia levels within normal limits Status: Acute Code(s): K72.90 - Hepatic failure, unspecified without coma (10) Thrombocytopenia: Status: Acute Code(s): D69.6 - Thrombocytopenia, unspecified (11) History of esophageal varices: No complaints of hemoptysis Status: Acute Code(s): Z87.19 - Personal history of other diseases of the digestive system (12) 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: Status: Acute Code(s): K75.81 - Nonalcoholic steatohepatitis (FLOYD); K74.60 - Unspecified cirrhosis of liver Attestations Medical Necessity Statement*: Requires continued hospitalization, for altered mental status secondary to UTI Coding Level of Care Code 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
[2019-07-29 15:25] VITALS: PULSE 74; O2SAT 97
[2019-07-29 15:47] VITALS: BP 122/68; PULSE 74; RESP 22; TEMP 36; O2SAT 96
--- NOTE | 2019-07-29 16:03 | PC.PT ---
PT note; attempted PT evaluation at 1245, patient too lethargic to participate at this time, patient family present, and realize same as well; state there have been changes in patient's medicine taking times, they recommend attempt evaluation around 11:00 tomorrow, will reattempt then
[2019-07-29 19:34] VITALS: BP 147/78; PULSE 69; RESP 20; TEMP 36.8; O2SAT 94
[2019-07-29] MEDS: donepezil 5 MG Tablet 10 MG PO (20:35)
[2019-07-29] MEDS: mirtazapine 15 mg Tablet PO (20:35)
[2019-07-30] VITALS (8 sets, daily range): BP systolic 142–188; BP diastolic 68–94; PULSE 62–86; RESP 14–24; TEMP 36.3–37.1; O2SAT 93–96
[2019-07-30] MEDS: quetiapine 25 mg Tablet 50 MG PO ×2 (05:49→21:59)
[2019-07-30 06:40] LABS: Basophils % 1.2 %; Eosinophils # 0.1 10^3/uL (0.0-0.8); Eosinophils % 7.9 %; Hemoglobin 11.4 g/dL (11.5-15.3); Lymphocytes # 0.4 10^3/uL (0.8-4.8); Lymphocytes % 26.8 %; Mean Corpuscular HGB Conc 31.7 g/dL (30.0-36.0); Mean Corpuscular Volume 97.8 fL (81-99); Mean Platelet Volume 11.9 fL (7.4-10.4); Monocytes # 0.2 10^3/uL (0.2-0.9); Monocytes % 12.2 %; Neutrophils % 51.9 %; Nucleated Red Blood Cells % 0 %; Platelet Count 48 10^3/cmm (130-400); Red Blood Count 3.68 10^6/uL (4.1-5.3); Red Cell Distribution Width 14.8 % (12.1-15.1); White Blood Count 1.6 10^3/uL (4.0-10.0)
[2019-07-30 06:48] LABS: Neutrophils # 0.9 10^3/uL (1.8-7.7)
[2019-07-30 06:58] LABS: Alanine Aminotransferase 15 U/L (0-33); Albumin Level 3.9 g/dL (3.5-5.2); Alkaline Phosphatase 94 IU/L (35-105); Anion Gap 13.5 (5-19); Aspartate Amino Transferase 25 U/L (0-32); Blood Urea Nitrogen 11 mg/dL (8-23); Calcium 9.3 mg/Dl (8.8-10.2); Carbon Dioxide 23 mmol/L (22-29); Chloride 109 mmol/L (98-107); Globulin 2.6 g/dL (1.3-4.6); Glucose 109 mg/dL (74-106); Potassium 3.5 mmol/L (3.5-5.1); Sodium 142 mmol/L (136-145); Total Bilirubin 1.3 mg/dL (0.15-1.2); Total Protein 6.5 g/dL (6.6-8.7)
[2019-07-30] MEDS: multivitamin therapeutic Tablet 1 TAB PO (08:19)
[2019-07-30] MEDS: calcium carb-vit d 600mg/400unit 1 Tablet 1 EACH PO (08:19)
[2019-07-30] MEDS: levothyroxine 125 mcg Tablet PO (08:19)
[2019-07-30] MEDS: b-complex-vitamin c Tablet 1 EACH PO (08:19)
[2019-07-30] MEDS: pantoprazole DR 40 mg Tablet PO (08:19)
[2019-07-30] MEDS: ascorbic acid 500 mg Tablet PO (08:19)
[2019-07-30] MEDS: atorvastatin 40 mg Tablet PO (08:19)
[2019-07-30] MEDS: memantine 5 mg tablet 10 MG PO ×2 (08:20→17:48)
[2019-07-30] MEDS: lactulose oral liq 20 gm/30 mL UDC 10 GM PO (08:20)
[2019-07-30] MEDS: sodium chloride 0.9% 1,000 ML 75 ML IV ×2 (12:32→12:33)
[2019-07-30 16:35] LABS: Ammonia 82 umol/L (11-51)
--- NOTE | 2019-07-30 20:03 | P.PN_ITS ---
Subjective Subjective: Interval history: This morning, patient's family is at bedside, patient is a bit agitated, is still a bit confused but but doing much better, her ammonia levels are 82, patient's daughter states that whenever ammonia levels are greater than 70, she has episodes of confusion and agitation, no fevers, no chills, no nausea, no vomiting, appetite is improving, did get out of bed this morning Vitals/I&O/Wt Last Vital Signs Temp 98.0 F 07/30/19 16:00 Pulse 65 07/30/19 16:00 Resp 18 07/30/19 16:00 BP 176/92 07/30/19 16:00 Pulse Ox 95 07/30/19 16:00 07/30/19 07/30/19 07/30/19 06:59 14:59 22:59 Intake Total 746.25 / 2483.75 1195.00 / 1195.00 240 / 1435.00 Balance 746.25 / 2483.75 1195.00 / 1195.00 240 / 1435.00 Weight last 48 hrs Weight 102.104 kg Physical Exam Const: COMMON NORMALS: no apparent distress and alert GENERAL APPEARANCE: cooperative and well kempt NUTRITIONAL APPEARANCE: obese ORIENTATION/CONSCIOUSNESS: Yes awake, Yes oriented to person and Yes confused; not oriented to place and not oriented to time Neck/C-Spine: COMMON NORMALS: no JVD Resp: COMMON NORMALS: normal respiratory effort, no retractions, no use of accessory muscles and clear to auscultation bilaterally AUSCULTATION: clear to auscultation bilaterally Cardio: COMMON NORMALS: no JVD, regular rate, regular rhythm, S1 normal heart sound, S2 normal heart sound, no gallops, no clicks, no murmurs and no rub RATE: regular rate RHYTHM: regular rhythm HEART SOUNDS: S1 normal and S2 normal GI: COMMON NORMALS: normal to inspection, nondistended, normoactive bowel sounds, soft to palpation, non-tender, no hepatosplenomegaly, no masses and no bruits PALPATION: Yes soft and Yes no hepatosplenomegaly Extremity: COMMON NORMALS: full ROM, no clubbing, cyanosis or edema, no calf tenderness and no pedal edema Neuro: SENSORIUM/ORIENTATION: Yes alert, Yes oriented to person, No oriented to place and No oriented to time Psych: COMMON NORMALS: speech normal APPEARANCE: Yes grossly normal and Yes well kempt ATTITUDE: Yes agitated (Does become agitated at times,) SPEECH: Yes normal speech ATTENTION/CONCENTRATION: Yes attention grossly intact MEMORY/COGNITION: Yes memory grossly impaired Skin: NARRATIVE SKIN EXAM: Does have bruising on bilateral arms Data Micro: Micro: Microbiology 07/28/19 11:50 Urine Culture - Fi nal Urine Catheterize d 07/28/19 11:34 Blood Culture - Pr eliminary Blood Gram positive r od A&P Assessment and plan (1) Altered mental status: -Likely secondary to urinary tract infection and elevated ammonia levels Plan: -Follow urine cultures, blood cultures -Continue Primaxin -Increase lactulose -DVT prophylaxis SCDs, anticoagulation contraindicated due to esophageal varices and thrombocytopenia Status: Acute Code(s): R41.82 - Altered mental status, unspecified (2) Urinary tract infection in elderly patient: As above Status: Acute Code(s): N39.0 - Urinary tract infection, site not specified (3) Liver lesion, right lobe: Will require outpatient follow-up Status: Acute Code(s): K76.9 - Liver disease, unspecified (4) Breast lump in female: Is being followed as outpatient Status: Acute Code(s): N63.0 - Unspecified lump in unspecified breast (5) GERD (gastroesophageal reflux disease): Status: Acute Code(s): K21.9 - Gastro-esophageal reflux disease without esophagitis (6) Hyperlipidemia: Status: Acute Code(s): E78.5 - Hyperlipidemia, unspecified (7) Bilateral cataracts: Status: Acute Code(s): H26.9 - Unspecified cataract (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 (9) Hepatic encephalopathy: Ammonia levels within normal limits Status: Acute Code(s): K72.90 - Hepatic failure, unspecified without coma (10) Thrombocytopenia: Status: Acute Code(s): D69.6 - Thrombocytopenia, unspecified (11) History of esophageal varices: No complaints of hemoptysis Status: Acute Code(s): Z87.19 - Personal history of other diseases of the digestive system (12) 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: Status: Acute Code(s): K75.81 - Nonalcoholic steatohepatitis (FLOYD); K74.60 - Unspecified cirrhosis of liver Attestations Medical Necessity Statement*: Requires continued hospitalization, for altered mental status secondary to UTI and elevated ammonia levels Coding Level of Care Code 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
[2019-07-30] MEDS: mirtazapine 15 mg Tablet PO (21:59)
[2019-07-30] MEDS: donepezil 5 MG Tablet 10 MG PO (21:59)
[2019-07-30] MEDS: lactulose oral liq 20 gm/30 mL UDC PO (22:00)
[2019-07-31 00:34] VITALS: RESP 16
[2019-07-31] MEDS: oxyCODONE 5 mg IR Tab/Cap PO (00:34)
[2019-07-31] MEDS: sodium chloride 0.9% 1,000 ML 75 ML IV (02:03)
[2019-07-31 02:55] VITALS: BP 165/74; PULSE 67; RESP 19; TEMP 36.7; O2SAT 92
[2019-07-31 04:45] LABS: Basophils % 1.2 %; Eosinophils # 0.1 10^3/uL (0.0-0.8); Hematocrit 31.4 % (37.0-47.0); Hemoglobin 10.2 g/dL (11.5-15.3); Lymphocytes # 0.5 10^3/uL (0.8-4.8); Lymphocytes % 28.2 %; Mean Corpuscular HGB Conc 32.5 g/dL (30.0-36.0); Mean Corpuscular Hemoglobin 30.4 pg (28.0-34.0); Mean Corpuscular Volume 93.7 fL (81-99); Mean Platelet Volume 12.1 fL (7.4-10.4); Monocytes # 0.2 10^3/uL (0.2-0.9); Monocytes % 11.7 %; Neutrophils % 50.3 %; Nucleated Red Blood Cells % 0 %; Platelet Count 40 10^3/cmm (130-400); Red Blood Count 3.35 10^6/uL (4.1-5.3); Red Cell Distribution Width 14.5 % (12.1-15.1); White Blood Count 1.6 10^3/uL (4.0-10.0)
[2019-07-31 04:52] LABS: Neutrophils # 0.8 10^3/uL (1.8-7.7)
[2019-07-31 05:04] LABS: Alanine Aminotransferase 14 U/L (0-33); Albumin Level 3.4 g/dL (3.5-5.2); Alkaline Phosphatase 84 IU/L (35-105); Anion Gap 13.2 (5-19); Aspartate Amino Transferase 27 U/L (0-32); Blood Urea Nitrogen 11 mg/dL (8-23); Calcium 8.7 mg/Dl (8.8-10.2); Carbon Dioxide 21 mmol/L (22-29); Chloride 111 mmol/L (98-107); Glucose 119 mg/dL (74-106); Potassium 3.2 mmol/L (3.5-5.1); Sodium 142 mmol/L (136-145); Total Protein 5.4 g/dL (6.6-8.7)
[2019-07-31 05:08] LABS: Ammonia 64 umol/L (11-51)
[2019-07-31 08:00] VITALS: BP 166/84; PULSE 74; RESP 18; TEMP 36.9; O2SAT 95
[2019-07-31] MEDS: calcium carb-vit d 600mg/400unit 1 Tablet 1 EACH PO (08:55)
[2019-07-31] MEDS: multivitamin therapeutic Tablet 1 TAB PO (08:55)
[2019-07-31] MEDS: memantine 5 mg tablet 10 MG PO ×2 (08:55→18:16)
[2019-07-31] MEDS: levothyroxine 125 mcg Tablet PO (08:55)
[2019-07-31] MEDS: ascorbic acid 500 mg Tablet PO (08:55)
[2019-07-31] MEDS: pantoprazole DR 40 mg Tablet PO (08:55)
[2019-07-31] MEDS: atorvastatin 40 mg Tablet PO (08:55)
[2019-07-31] MEDS: quetiapine 25 mg Tablet 50 MG PO ×2 (08:55→20:41)
[2019-07-31] MEDS: b-complex-vitamin c Tablet 1 EACH PO (08:55)
[2019-07-31] MEDS: lactulose oral liq 20 gm/30 mL UDC PO ×4 (08:56→20:41)
--- NOTE | 2019-07-31 10:55 | PC.SOCIAL ---
IMM Page 2 of IMM explained to and signed by patient's spouse at bedside. Initialed, dated, and timed and placed in chart. Copy provided to patient.
[2019-07-31 12:00] VITALS: BP 152/82; PULSE 60; RESP 18; TEMP 36.9; O2SAT 92
[2019-07-31 13:09] LABS: Immunofixation, Serum NR
[2019-07-31 13:36] LABS: LAB Peripheral Smear Sent for Review
[2019-07-31 13:49] LABS: Vitamin B12 800 pg/mL (232-1245)
[2019-07-31 15:42] VITALS: BP 155/92; PULSE 64; RESP 18; TEMP 36.4; O2SAT 93
--- NOTE | 2019-07-31 15:56 | P.PN_ITS ---
Subjective Subjective: Interval history: This morning, patient states that she wants to go home, family is at bedside, states that she is still about week, family feels she is still a bit weak, but her mentation has improved I reviewed patient's medical history for the past year, patient shows chronic pancytopenia. Patient's daughter states that she has had a history of pancytopenia in the past, more than 10 years ago she had a bone marrow biopsy to evaluate for bone related cancers, work-up came unremarkable. But this pancytopenia is a known history for her. Today patient's white blood cell count is white 1.6, absolute neutrophil count is low at 0.8, hemoglobin 10.2, platelet count 40. Patient's Floyd is also complicating the picture. Patient's family will think about doing a bone marrow biopsy as outpatient. Patient at bedside did state that she wanted it. Patient's family sounds a lot like they want to pursue hospice. Patient does voice that that she does not want chemotherapy. So the utility of this bone marrow biopsy will be questioned, unless patient wants a diagnosis. We will have hospice evaluation. I spoke to Dr. Montesinos, who agrees with outpatient follow-up. Vitals/I&O/Wt Last Vital Signs Temp 97.5 F L 07/31/19 15:42 Pulse 64 07/31/19 15:42 Resp 18 07/31/19 15:42 BP 155/92 07/31/19 15:42 Pulse Ox 93 07/31/19 15:42 07/31/19 07/31/19 07/31/19 06:59 14:59 22:59 Intake Total 774.50 / 3356.50 720 / 720 Balance 774.50 / 3356.50 720 / 720 Weight last 48 hrs Weight 104.525 kg Physical Exam Const: COMMON NORMALS: no apparent distress and alert GENERAL APPEARANCE: cooperative and well kempt NUTRITIONAL APPEARANCE: obese ORIENTATION/CONSCIOUSNESS: Yes awake, Yes oriented to person and Yes confused; not oriented to place and not oriented to time Neck/C-Spine: COMMON NORMALS: full ROM, no lymphadenopathy and no JVD Resp: COMMON NORMALS: normal respiratory effort, no retractions, no use of accessory muscles and clear to auscultation bilaterally AUSCULTATION: clear to auscultation bilaterally Cardio: COMMON NORMALS: no JVD, regular rate, regular rhythm, S1 normal heart sound, S2 normal heart sound, no gallops, no clicks, no murmurs and no rub RATE: regular rate RHYTHM: regular rhythm HEART SOUNDS: S1 normal and S2 normal GI: COMMON NORMALS: normal to inspection, nondistended, normoactive bowel sounds, soft to palpation, non-tender, no hepatosplenomegaly, no masses and no bruits PALPATION: Yes soft and Yes no hepatosplenomegaly Neuro: SENSORIUM/ORIENTATION: Yes alert, Yes oriented to person, No oriented to place and No oriented to time Psych: APPEARANCE: Yes well kempt Data Micro: Micro: Microbiology 07/28/19 11:34 Blood Culture - Pr eliminary Blood Corynebacterium species 07/28/19 11:50 Urine Culture - Fi nal Urine Catheterize d A&P Assessment and plan (1) Altered mental status: -Likely secondary to urinary tract infection and elevated ammonia levels Plan: -Urine culture negative, blood culture showing contamination -We will stop Primaxin as this can worsen leukopenia, continue Bactrim -Ammonia levels have decreased to 64, continue lactulose -DVT prophylaxis SCDs, anticoagulation contraindicated due to esophageal varices and thrombocytopenia Status: Acute Code(s): R41.82 - Altered mental status, unspecified (2) Urinary tract infection in elderly patient: As above Status: Acute Code(s): N39.0 - Urinary tract infection, site not specified (3) Liver lesion, right lobe: Will require outpatient follow-up Status: Acute Code(s): K76.9 - Liver disease, unspecified (4) Breast lump in female: Is being followed as outpatient Status: Acute Code(s): N63.0 - Unspecified lump in unspecified breast (5) GERD (gastroesophageal reflux disease): Status: Acute Code(s): K21.9 - Gastro-esophageal reflux disease without esophagitis (6) Hyperlipidemia: Status: Acute Code(s): E78.5 - Hyperlipidemia, unspecified (7) Bilateral cataracts: Status: Acute Code(s): H26.9 - Unspecified cataract (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 (9) Hepatic encephalopathy: Ammonia levels within normal limits Status: Acute Code(s): K72.90 - Hepatic failure, unspecified without coma (10) Thrombocytopenia: Status: Acute Code(s): D69.6 - Thrombocytopenia, unspecified (11) History of esophageal varices: No complaints of hemoptysis Status: Acute Code(s): Z87.19 - Personal history of other diseases of the digestive system (12) 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: Status: Acute Code(s): K75.81 - Nonalcoholic steatohepatitis (FLOYD); K74.60 - Unspecified cirrhosis of liver (13) Pancytopenia: -Patient and family wants to think about doing a bone marrow biopsy as outpatient -Patient and family want to discuss hospice care -Likely patient's pancytopenia is related to bone marrow pathology -B12, multiple myeloma pending -Patient does have a liver lobe lesion It sounds a lot like patient and family do not want aggressive interventions, do not want chemotherapy -We will have hospice evaluate patient Status: Acute Code(s): D61.818 - Other pancytopenia Attestations Medical Necessity Statement*: Requires continued hospitalization, for altered mental status, pancytopenia, leukopenia Coding Level of Care Code 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
[2019-07-31 17:02] LABS: Hematocrit 33.3 % (37.0-47.0); Hemoglobin 11.1 g/dL (11.5-15.3); Mean Corpuscular HGB Conc 33.3 g/dL (30.0-36.0); Mean Corpuscular Hemoglobin 31.9 pg (28.0-34.0); Mean Corpuscular Volume 95.7 fL (81-99); Mean Platelet Volume 12.6 fL (7.4-10.4); Platelet Count 47 10^3/cmm (130-400); Red Blood Count 3.48 10^6/uL (4.1-5.3); Red Cell Distribution Width 14.6 % (12.1-15.1); White Blood Count 1.8 10^3/uL (4.0-10.0)
[2019-07-31] MEDS: nitrofurantoin SR (BID) 100 mg Capsule PO (18:17)
[2019-07-31 18:41] LABS: Absolute Eosinophils 0.1 10^3/cmm (0.0-0.7); Absolute Segmented Neutrophil 0.9 10/cmm (1.6-7.1); Eosinophils 7 %; Lymphocytes 33 %; Monocytes Absolute 0.1 10^3/cmm (0.1-0.6); Segmented Neutrophils 51 %; Total Cells Counted 100 (0-100)
[2019-07-31 18:42] LABS: Lymphocytes Absolute 0.6 10^3/cmm (1.2-3.4); Platelet Estimate Decreased (Normal)
[2019-07-31 20:00] VITALS: BP 158/79; PULSE 58; RESP 20; TEMP 36.5; O2SAT 93
[2019-07-31] MEDS: mirtazapine 15 mg Tablet PO (20:40)
[2019-07-31] MEDS: donepezil 5 MG Tablet 10 MG PO (20:40)
[2019-08-01] VITALS (13 sets, daily range): BP systolic 137–173; BP diastolic 63–92; PULSE 56–72; RESP 17–20; TEMP 36.6–37.4; O2SAT 91–95
[2019-08-01 05:58] LABS: Eosinophils # 0.1 10^3/uL (0.0-0.8); Eosinophils % 6.8 %; Hematocrit 33.3 % (37.0-47.0); Hemoglobin 10.7 g/dL (11.5-15.3); Lymphocytes # 0.3 10^3/uL (0.8-4.8); Lymphocytes % 15.1 %; Mean Corpuscular HGB Conc 32.1 g/dL (30.0-36.0); Mean Corpuscular Hemoglobin 30.1 pg (28.0-34.0); Mean Corpuscular Volume 93.8 fL (81-99); Monocytes # 0.2 10^3/uL (0.2-0.9); Monocytes % 9.9 %; Neutrophils # 1.3 10^3/uL (1.8-7.7); Neutrophils % 66.7 %; Nucleated Red Blood Cells % 0 %; Platelet Count 43 10^3/cmm (130-400); Red Blood Count 3.55 10^6/uL (4.1-5.3); Red Cell Distribution Width 14.7 % (12.1-15.1); White Blood Count 1.9 10^3/uL (4.0-10.0)
[2019-08-01 06:19] LABS: Alanine Aminotransferase 16 U/L (0-33); Albumin Level 3.6 g/dL (3.5-5.2); Alkaline Phosphatase 97 IU/L (35-105); Anion Gap 12.5 (5-19); Aspartate Amino Transferase 30 U/L (0-32); Blood Urea Nitrogen 12 mg/dL (8-23); Calcium 9.1 mg/Dl (8.8-10.2); Carbon Dioxide 24 mmol/L (22-29); Chloride 111 mmol/L (98-107); Globulin 2.7 g/dL (1.3-4.6); Glucose 103 mg/dL (74-106); Potassium 3.5 mmol/L (3.5-5.1); Sodium 144 mmol/L (136-145); Total Protein 6.3 g/dL (6.6-8.7)
[2019-08-01] MEDS: oxyCODONE 5 mg IR Tab/Cap PO ×2 (09:20→21:30)
[2019-08-01] MEDS: atorvastatin 40 mg Tablet PO (09:21)
[2019-08-01] MEDS: pantoprazole DR 40 mg Tablet PO (09:21)
[2019-08-01] MEDS: ascorbic acid 500 mg Tablet PO (09:21)
[2019-08-01] MEDS: quetiapine 25 mg Tablet 50 MG PO ×2 (09:22→21:29)
[2019-08-01] MEDS: b-complex-vitamin c Tablet 1 EACH PO (09:23)
[2019-08-01] MEDS: multivitamin therapeutic Tablet 1 TAB PO (09:23)
[2019-08-01] MEDS: memantine 5 mg tablet 10 MG PO ×2 (09:23→18:38)
[2019-08-01] MEDS: levothyroxine 125 mcg Tablet PO (09:24)
[2019-08-01] MEDS: lactulose oral liq 20 gm/30 mL UDC PO ×2 (09:24→18:38)
[2019-08-01] MEDS: calcium carb-vit d 600mg/400unit 1 Tablet 1 EACH PO (09:25)
[2019-08-01] MEDS: nitrofurantoin SR (BID) 100 mg Capsule PO ×2 (11:14→18:38)
[2019-08-01 13:17] LABS: ALBUMIN 3.4 g/dL (3.8-4.8); ALPHA 1 GLOBULIN 0.3 g/dL (0.2-0.3); ALPHA 2 GLOBULIN 0.5 g/dL (0.5-0.9); BETA 1 GLOBULIN 0.3 g/dL (0.4-0.6); BETA 2 GLOBULIN 0.3 g/dL (0.2-0.5); PROTEIN, TOTAL 5.7 g/dL (6.1-8.1)
--- NOTE | 2019-08-01 13:55 | P.PN_ITS ---
Subjective Subjective: Interval history: This morning, patient states that she wants to go home, is at bedside, still states that she is weak, but her mentation has improved I reviewed patient's medical history for the past year, patient shows chronic pancytopenia. Patient's daughter states that she has had a history of pancytopenia in the past, more than 10 years ago she had a bone marrow biopsy to evaluate for bone related cancers, work-up came unremarkable. But this pancytopenia is a known history for her. Today patient's white blood cell count is white 1.6, absolute neutrophil count is low at 0.8, hemoglobin 10.2, platelet count 40. Patient's Floyd is also complicating the picture. Patient's family will think about doing a bone marrow biopsy as outpatient. Patient at bedside did state that she wanted it. Patient's family sounds a lot like they want to pursue hospice. Patient does voice that that she does not want chemotherapy. So the utility of this bone marrow biopsy will be questioned, unless patient wants a diagnosis. We will have hospice evaluation. I spoke to Dr. Montesinos, who agrees with outpatient follow-up. We will have block and case maker rechecked in the family this afternoon, in terms of medically, patient is ready to go home today, options include home health care, hospice, senior living facility if they feel that she is still weak Vitals/I&O/Wt Last Vital Signs Temp 98.5 F 08/01/19 11:42 Pulse 64 08/01/19 11:42 Resp 18 08/01/19 11:42 BP 173/92 08/01/19 11:42 Pulse Ox 92 08/01/19 11:42 07/31/19 08/01/19 08/01/19 22:59 06:59 14:59 Intake Total 1684.5 / 2404.5 240 / 240 Balance 1684.5 / 2404.5 240 / 240 Weight last 48 hrs Weight 104.871 kg Weight 104.893 kg Weight 104.525 kg Physical Exam Const: COMMON NORMALS: no apparent distress and alert GENERAL APPEARANCE: cooperative and well kempt NUTRITIONAL APPEARANCE: obese ORIENTATION/CONSCIOUSNESS: Yes awake, Yes oriented to person, Yes oriented to place and Yes confused; not oriented to time HENMT: COMMON NORMALS: normocephalic HEAD & SCALP: normocephalic Eye: COMMON NORMALS: PERRL and EOMs intact bilaterally PUPIL: Yes PERRL Neck/C-Spine: COMMON NORMALS: full ROM, no lymphadenopathy and no JVD Lymph: LYMPHATIC: no lymphadenopathy noted Resp: COMMON NORMALS: normal respiratory effort, no retractions, no use of accessory muscles and clear to auscultation bilaterally AUSCULTATION: clear to auscultation bilaterally Cardio: COMMON NORMALS: no JVD, regular rate, regular rhythm, S1 normal heart sound, S2 normal heart sound, no gallops, no clicks, no murmurs and no rub RATE: regular rate RHYTHM: regular rhythm HEART SOUNDS: S1 normal and S2 normal GI: COMMON NORMALS: normal to inspection, nondistended, normoactive bowel sounds, soft to palpation, non-tender, no hepatosplenomegaly, no masses and no bruits PALPATION: Yes soft and Yes no hepatosplenomegaly : COMMON NORMALS: Yes no CVA tenderness BLADDER/KIDNEY EXAM: Yes no CVA tenderness Back/Pelvis: COMMON NORMALS: no CVA tenderness Extremity: COMMON NORMALS: full ROM, no clubbing, cyanosis or edema, no calf tenderness and no pedal edema Neuro: COMMON NORMALS: moves all extremities SENSORIUM/ORIENTATION: Yes alert, Yes oriented to person, Yes oriented to place and No oriented to time Psych: COMMON NORMALS: speech normal APPEARANCE: Yes grossly normal and Yes well kempt SPEECH: Yes normal speech ATTENTION/CONCENTRATION: Yes attention grossly intact MEMORY/COGNITION: Yes memory grossly impaired Skin: NARRATIVE SKIN EXAM: Does have bruising on bilateral arms Data Micro: Micro: Microbiology 07/28/19 11:34 Blood Culture - Pr eliminary Blood Corynebacterium species A&P Assessment and plan (1) Altered mental status: -Likely secondary to urinary tract infection and elevated ammonia levels Plan: -Urine culture negative, blood culture showing contamination -On Keflex -Ammonia levels have decreased to 64, continue lactulose -DVT prophylaxis SCDs, anticoagulation contraindicated due to esophageal varices and thrombocytopenia Status: Acute Code(s): R41.82 - Altered mental status, unspecified (2) Urinary tract infection in elderly patient: As above Status: Acute Code(s): N39.0 - Urinary tract infection, site not specified (3) Liver lesion, right lobe: Will require outpatient follow-up Status: Acute Code(s): K76.9 - Liver disease, unspecified (4) Breast lump in female: Is being followed as outpatient Status: Acute Code(s): N63.0 - Unspecified lump in unspecified breast (5) GERD (gastroesophageal reflux disease): Status: Acute Code(s): K21.9 - Gastro-esophageal reflux disease without esophagitis (6) Hyperlipidemia: Status: Acute Code(s): E78.5 - Hyperlipidemia, unspecified (7) Bilateral cataracts: Status: Acute Code(s): H26.9 - Unspecified cataract (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 (9) Hepatic encephalopathy: Ammonia levels within normal limits Status: Acute Code(s): K72.90 - Hepatic failure, unspecified without coma (10) Thrombocytopenia: Status: Acute Code(s): D69.6 - Thrombocytopenia, unspecified (11) History of esophageal varices: No complaints of hemoptysis Status: Acute Code(s): Z87.19 - Personal history of other diseases of the digestive system (12) 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: Status: Acute Code(s): K75.81 - Nonalcoholic steatohepatitis (FLOYD); K74.60 - Unspecified cirrhosis of liver (13) Pancytopenia: -Patient and family wants to think about doing a bone marrow biopsy as outpatient -Patient and family want to discuss hospice care -Likely patient's pancytopenia is related to bone marrow pathology -B12, multiple myeloma pending -Patient does have a liver lobe lesion It sounds a lot like patient and family do not want aggressive interventions, do not want chemotherapy -We will have hospice evaluate patient Status: Acute Code(s): D61.818 - Other pancytopenia (14) Physical deconditioning: -Likely secondary to anemia, chronic medical problems -Currently patient medically stable -Outpatient options include home health care, senior living facility, or hospice -We will await family's decision Status: Acute Code(s): R53.81 - Other malaise Attestations Medical Necessity Statement*: Altered mental status secondary UTI, improved, awaiting family plan for physical deconditioning, pancytopenia Coding Level of Care Code Acute 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
[2019-08-01] MEDS: mirtazapine 15 mg Tablet PO (21:29)
[2019-08-01] MEDS: donepezil 5 MG Tablet 10 MG PO (21:29)
[2019-08-01] MEDS: acetaminophen 325 mg Tablet 650 MG PO (22:53)
[2019-08-02] VITALS (7 sets, daily range): BP systolic 128–154; BP diastolic 72–78; PULSE 60–77; RESP 16–20; TEMP 36.3–37.8; O2SAT 93–94
[2019-08-02 05:48] LABS: Eosinophils # 0.1 10^3/uL (0.0-0.8); Eosinophils % 5.4 %; Hemoglobin 11.1 g/dL (11.5-15.3); Lymphocytes # 0.1 10^3/uL (0.8-4.8); Lymphocytes % 7.1 %; Mean Corpuscular HGB Conc 32.6 g/dL (30.0-36.0); Mean Corpuscular Hemoglobin 31.3 pg (28.0-34.0); Mean Corpuscular Volume 95.8 fL (81-99); Mean Platelet Volume 12.6 fL (7.4-10.4); Monocytes # 0.1 10^3/uL (0.2-0.9); Monocytes % 8.3 %; Neutrophils # 1.3 10^3/uL (1.8-7.7); Neutrophils % 78.6 %; Nucleated Red Blood Cells % 0 %; Platelet Count 37 10^3/cmm (130-400); Red Blood Count 3.55 10^6/uL (4.1-5.3); Red Cell Distribution Width 15.1 % (12.1-15.1); White Blood Count 1.7 10^3/uL (4.0-10.0)
[2019-08-02 06:14] LABS: Alanine Aminotransferase 17 U/L (0-33); Albumin Level 3.9 g/dL (3.5-5.2); Alkaline Phosphatase 89 IU/L (35-105); Anion Gap 14.7 (5-19); Aspartate Amino Transferase 35 U/L (0-32); Blood Urea Nitrogen 13 mg/dL (8-23); Calcium 9.3 mg/Dl (8.8-10.2); Carbon Dioxide 24 mmol/L (22-29); Chloride 107 mmol/L (98-107); Globulin 1.8 g/dL (1.3-4.6); Glucose 121 mg/dL (74-106); Potassium 3.7 mmol/L (3.5-5.1); Sodium 142 mmol/L (136-145); Total Bilirubin 1.6 mg/dL (0.15-1.2); Total Protein 5.7 g/dL (6.6-8.7)
[2019-08-02] MEDS: memantine 5 mg tablet 10 MG PO ×2 (10:11→20:00)
[2019-08-02] MEDS: multivitamin therapeutic Tablet 1 TAB PO (10:11)
[2019-08-02] MEDS: atorvastatin 40 mg Tablet PO (10:11)
[2019-08-02] MEDS: b-complex-vitamin c Tablet 1 EACH PO (10:11)
[2019-08-02] MEDS: pantoprazole DR 40 mg Tablet PO (10:11)
[2019-08-02] MEDS: calcium carb-vit d 600mg/400unit 1 Tablet 1 EACH PO (10:12)
[2019-08-02] MEDS: quetiapine 25 mg Tablet 50 MG PO ×2 (10:12→21:14)
[2019-08-02] MEDS: nitrofurantoin SR (BID) 100 mg Capsule PO ×2 (10:12→20:00)
[2019-08-02] MEDS: levothyroxine 125 mcg Tablet PO (10:13)
[2019-08-02] MEDS: ascorbic acid 500 mg Tablet PO (10:13)
[2019-08-02] MEDS: lactulose oral liq 20 gm/30 mL UDC PO ×2 (10:13→21:12)
--- NOTE | 2019-08-02 10:40 | PC.SOCIAL ---
IMM Updated Page 2 of IMM updated and given to patient. Initialed, dated, and timed and placed back in chart.
--- NOTE | 2019-08-02 12:39 | PM.PN ---
Subjective Subjective: Interval history: This morning patient is very teary, she really wants to go home, does not want to go to the penitentiary, still is quite weak according to family but was into a chair yesterday afternoon, no fevers, no chills, no nausea, vomiting Vitals/I&O/Wt Last Vital Signs Temp 97.4 F L 08/02/19 11:10 Pulse 65 08/02/19 11:10 Resp 18 08/02/19 11:10 BP 135/74 08/02/19 11:10 Pulse Ox 94 08/02/19 08:03 08/01/19 08/02/19 08/02/19 22:59 06:59 14:59 Intake Total 680 / 1160 360 / 360 Balance 680 / 1160 360 / 360 Weight last 48 hrs Weight 100.652 kg Weight 105.551 kg Weight 104.871 kg Weight 104.893 kg Physical Exam Const: COMMON NORMALS: no apparent distress and alert GENERAL APPEARANCE: well kempt NUTRITIONAL APPEARANCE: obese ORIENTATION/CONSCIOUSNESS: Yes awake, Yes oriented to person and Yes oriented to place; not oriented to time Neck/C-Spine: COMMON NORMALS: no JVD Lymph: LYMPHATIC: no lymphadenopathy noted Resp: COMMON NORMALS: normal respiratory effort, no retractions, no use of accessory muscles and clear to auscultation bilaterally AUSCULTATION: clear to auscultation bilaterally Cardio: COMMON NORMALS: no JVD, regular rate, regular rhythm, S1 normal heart sound, S2 normal heart sound, no gallops, no clicks, no murmurs and no rub RATE: regular rate RHYTHM: regular rhythm HEART SOUNDS: S1 normal and S2 normal GI: COMMON NORMALS: normal to inspection, nondistended, normoactive bowel sounds, soft to palpation, non-tender, no hepatosplenomegaly, no masses and no bruits PALPATION: Yes soft and Yes no hepatosplenomegaly Extremity: COMMON NORMALS: full ROM, no clubbing, cyanosis or edema, no calf tenderness and no pedal edema Neuro: SENSORIUM/ORIENTATION: Yes alert, Yes oriented to person, Yes oriented to place and No oriented to time Psych: COMMON NORMALS: speech normal APPEARANCE: Yes grossly normal and Yes well kempt SPEECH: Yes normal speech ATTENTION/CONCENTRATION: Yes attention grossly intact Data Micro: Micro: Microbiology 07/28/19 11:41 Blood Culture - Fi nal Blood NO GROWTH AFTER 5 DAYS 07/28/19 11:34 Blood Culture - Fi nal Blood Corynebacterium species A&P Assessment and plan (1) Altered mental status: -Likely secondary to urinary tract infection and elevated ammonia levels Plan: -Urine culture negative, blood culture showing contamination -On Keflex -Ammonia levels have decreased to 64, continue lactulose -DVT prophylaxis SCDs, anticoagulation contraindicated due to esophageal varices and thrombocytopenia Status: Acute Code(s): R41.82 - Altered mental status, unspecified (2) Urinary tract infection in elderly patient: As above Status: Acute Code(s): N39.0 - Urinary tract infection, site not specified (3) Liver lesion, right lobe: Will require outpatient follow-up Status: Acute Code(s): K76.9 - Liver disease, unspecified (4) Breast lump in female: Is being followed as outpatient Status: Acute Code(s): N63.0 - Unspecified lump in unspecified breast (5) GERD (gastroesophageal reflux disease): Status: Acute Code(s): K21.9 - Gastro-esophageal reflux disease without esophagitis (6) Hyperlipidemia: Status: Acute Code(s): E78.5 - Hyperlipidemia, unspecified (7) Bilateral cataracts: Status: Acute Code(s): H26.9 - Unspecified cataract (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 (9) Hepatic encephalopathy: Ammonia levels within normal limits Status: Acute Code(s): K72.90 - Hepatic failure, unspecified without coma (10) Thrombocytopenia: Status: Acute Code(s): D69.6 - Thrombocytopenia, unspecified (11) History of esophageal varices: No complaints of hemoptysis Status: Acute Code(s): Z87.19 - Personal history of other diseases of the digestive system (12) 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: Status: Acute Code(s): K75.81 - Nonalcoholic steatohepatitis (FLOYD); K74.60 - Unspecified cirrhosis of liver (13) Pancytopenia: -Patient and family wants to think about doing a bone marrow biopsy as outpatient -Patient and family want to discuss hospice care -Likely patient's pancytopenia is related to bone marrow pathology -B12, multiple myeloma pending -Patient does have a liver lobe lesion It sounds a lot like patient and family do not want aggressive interventions, do not want chemotherapy -We will have hospice evaluate patient Status: Acute Code(s): D61.818 - Other pancytopenia (14) Physical deconditioning: -Likely secondary to anemia, chronic medical problems -Currently patient medically stable -Outpatient options include home health care, custodial facility, or hospice -We will await family's decision Status: Acute Code(s): R53.81 - Other malaise Attestations Medical Necessity Statement*: Altered mental status, deconditioning, awaiting penitentiary placement Coding Level of Care Code Acute Premium Service Representative for g 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
[2019-08-02] MEDS: acetaminophen 325 mg Tablet 650 MG PO (21:11)
[2019-08-02] MEDS: mirtazapine 15 mg Tablet PO (21:13)
[2019-08-02] MEDS: donepezil 5 MG Tablet 10 MG PO (21:13)
[2019-08-03] VITALS (13 sets, daily range): BP systolic 118–158; BP diastolic 69–88; PULSE 51–96; RESP 14–22; TEMP 36.4–37.2; O2SAT 91–97
[2019-08-03 01:03] LABS: Glucose Point of Care 143 mg/dL (70-110)
--- NOTE | 2019-08-03 01:08 | PC.NURSE ---
Called to room by chuck wagon driver, reports pt less responsive. Pt awakens to tacticle stimuli but quickly falls asleep, clammy but room is hot and had multiple covers which were pulled back. vss Bs 143 Dr nguyen notified
--- NOTE | 2019-08-03 02:06 | PC.NURSE ---
pt awakens to tactile stimuli but falls back asleep quickly resp shallow and unlabored
--- NOTE | 2019-08-03 02:42 | ECG_ITS ---
Measurements Intervals [place] Rate: 62 P: DC: 0 QRS: 3 QRSD: 113 T: 68 QT: 485 QTc: 496 Sinus RHYTHM with first-degree AV block and a PVC POSSIBLE RIGHT VENTRICULAR CONDUCTION DELAY [RSR (QR) IN V1/V2] INFERIOR MYOCARDIAL INFARCTION [40+ ms Q WAVE AND/OR ST/T ABNORMALITY IN II/aVF], PROBABLY OLD WITH POSTERIOR EXTENSION [PROMIN MODERATE T-WAVE ABNORMALITY, CONSIDER ANTEROLATERAL ISCHEMIA [-0.1+ mV T WAVE IN V3-V6] Compared to ECG 07/28/2019 16:59:26 T-wave abnormality still present Possible ischemia still present Electronically Signed On 08-03-2019 14:39:57 DIRECTOR [employer] by Jh Newell M.D. [email or web address]
--- NOTE | 2019-08-03 02:45 | PC.NURSE ---
Dr Chacon in to see pt.
--- NOTE | 2019-08-03 02:45 | PM.EVENT ---
Event Note Event Note: Called with patient less responsive and diaphoretic. Vital signs of been stable. She is quite diaphoretic on examination. She will moan and arouse a bit to stimulation but not maintain any level of alertness. Pupils are equal bilaterally. I have ordered an ammonia level, EKG, ABG and will go on and get morning laboratory studies. Patient is still full code but progress note yesterday indicates potential transition to hospice care. I do not see any medications that are new as of this evening that might account for this. Discussed with nursing staff.
[2019-08-03 02:59] LABS: ABG PCO2 39.9 mmHg (35-45); ABG PH Result 7.42 (7.35-7.45); Arterial Blood Gas Hematocrit 33.6 % (37-47); Base Excess ABG 1.5 mmol/L (-2.0-2.0); Blood Gas Allen Test Pos; Blood Gas Sample Site Radial, right; Blood Gas Sample Type Arterial; PO2 ABG 51.9 mmHg (80.0-100.0)
[2019-08-03 03:45] LABS: Eosinophils # 0.1 10^3/uL (0.0-0.8); Eosinophils % 4.8 %; Hematocrit 31.7 % (37.0-47.0); Hemoglobin 10.5 g/dL (11.5-15.3); Lymphocytes # 0.2 10^3/uL (0.8-4.8); Lymphocytes % 14.5 %; Mean Corpuscular HGB Conc 33.1 g/dL (30.0-36.0); Mean Corpuscular Hemoglobin 30.3 pg (28.0-34.0); Mean Corpuscular Volume 91.6 fL (81-99); Monocytes # 0.2 10^3/uL (0.2-0.9); Monocytes % 11.7 %; Neutrophils % 68.3 %; Nucleated Red Blood Cells % 0 %; Platelet Count 39 10^3/cmm (130-400); Red Blood Count 3.46 10^6/uL (4.1-5.3); Red Cell Distribution Width 15.3 % (12.1-15.1); White Blood Count 1.5 10^3/uL (4.0-10.0)
[2019-08-03 04:12] LABS: Ammonia 71 umol/L (11-51)
[2019-08-03 04:13] LABS: Alanine Aminotransferase 29 U/L (0-33); Albumin Level 3.7 g/dL (3.5-5.2); Alkaline Phosphatase 99 IU/L (35-105); Anion Gap 11.7 (5-19); Aspartate Amino Transferase 56 U/L (0-32); Blood Urea Nitrogen 15 mg/dL (8-23); Calcium 9.2 mg/Dl (8.8-10.2); Carbon Dioxide 24 mmol/L (22-29); Chloride 108 mmol/L (98-107); Glucose 143 mg/dL (74-106); Potassium 3.7 mmol/L (3.5-5.1); Sodium 140 mmol/L (136-145); Total Bilirubin 1.6 mg/dL (0.15-1.2); Total Protein 5.7 g/dL (6.6-8.7)
--- NOTE | 2019-08-03 04:50 | PC.NURSE ---
pt heart rate on tele Dr Chacon made aware, notified dtr reports pt is still full code, and they would come up.
--- NOTE | 2019-08-03 05:26 | PC.NURSE ---
pt family at , Dr Chacon aware and will come speak with shortly.
--- NOTE | 2019-08-03 05:40 | PC.NURSE ---
Family at , Dr nguyen here verified that pt will be a do not resusuciate.
--- NOTE | 2019-08-03 06:39 | PC.NURSE ---
Pt alert and talking to family. Dtr reports she has had issues with some of meds in past wondering if this had caused her change in loc. Family at bs.
[2019-08-03] MEDS: levothyroxine 125 mcg Tablet PO (10:25)
[2019-08-03] MEDS: pantoprazole DR 40 mg Tablet PO (10:25)
[2019-08-03] MEDS: nitrofurantoin SR (BID) 100 mg Capsule PO ×2 (10:25→17:29)
[2019-08-03] MEDS: atorvastatin 40 mg Tablet PO (10:25)
[2019-08-03] MEDS: multivitamin therapeutic Tablet 1 TAB PO (10:25)
[2019-08-03] MEDS: ascorbic acid 500 mg Tablet PO (10:26)
[2019-08-03] MEDS: quetiapine 25 mg Tablet 50 MG PO ×2 (10:26→18:43)
[2019-08-03] MEDS: b-complex-vitamin c Tablet 1 EACH PO (10:27)
[2019-08-03] MEDS: memantine 5 mg tablet 10 MG PO ×2 (10:27→17:28)
[2019-08-03] MEDS: calcium carb-vit d 600mg/400unit 1 Tablet 1 EACH PO (10:27)
[2019-08-03] MEDS: lactulose oral liq 20 gm/30 mL UDC PO ×4 (10:28→21:47)
--- NOTE | 2019-08-03 12:22 | XR_ITS ---
WS: [id number] CHEST XRAY TECHNIQUE: Portable chest. CLINICAL INFORMATION: sob COMPARISON: 1 ,020 FINDINGS: Heart: Cardiomegaly. Aortic calcification. Lungs: Chronic emphysematous changes. Linear atelectasis in the lung bases. Surgical clips right axil la. Bones: Plate and screw fixation left clavicle. XR/XR chest 1V portable [id number] IMPRESSION: Cardiomegaly. No acute pulmonary infiltrates.
[2019-08-03 14:44] LABS: Hematocrit 31.7 % (37.0-47.0); Hemoglobin 10.2 g/dL (11.5-15.3); Mean Corpuscular HGB Conc 32.2 g/dL (30.0-36.0); Mean Corpuscular Hemoglobin 30.5 pg (28.0-34.0); Mean Corpuscular Volume 94.9 fL (81-99); Platelet Count 44 10^3/cmm (130-400); Red Blood Count 3.34 10^6/uL (4.1-5.3); Red Cell Distribution Width 15.4 % (12.1-15.1); White Blood Count 1.6 10^3/uL (4.0-10.0)
[2019-08-03 15:22] LABS: Blood Gas Drawn By MB
[2019-08-03 15:54] LABS: Absolute Segmented Neutrophil 0.6 10/cmm (1.6-7.1); Anisocytosis 2+; Band Neutrophils Absolute 0.4 10^3/cmm (0.0-1.2); Eosinophils 5 %; Lymphocytes 15 %; Monocytes Absolute 0.1 10^3/cmm (0.1-0.6); Platelet Estimate Decreased (Normal); Segmented Neutrophils 43 %; Total Cells Counted 100 (0-100)
--- NOTE | 2019-08-03 18:54 | PM.PN ---
Subjective Subjective: Interval history: Overnight patient had episodes of bradycardia, became nonresponsive, was cool and clammy, became hypotensive, work-up was relatively unremarkable, had about broad differential, patient's family did not want aggressive work-up. In the morning patient was responding appropriately, was alert oriented x3, had low-grade temperatures as high as 100, no significant hypotension, no significant telemetry events except bradycardia, is on 3.5 L of oxygen, but not short of breath This morning when I interviewed patient, patient's family at bedside. Patient's only complaints that she really wants to go home, she does not want to go to the prison, is again quite teary, states that she is weak fatigued and tired. She has no significant complaints, no chest pain, no shortness of breath, no lightheadedness, no dizziness, is on 3.5 L oxygen. Nursing staff to get her up to use the bathroom, she urinated fine, had a bowel movement, was up into a chair. Patient's family want her to remain DNR/DNI. They do not want any aggressive measures. They do not want any aggressive testing. Likely patient's episode of confusion, bradycardia was secondary to her Seroquel. Patient's daughter states that she usually gets Seroquel at 7 PM, yet, last night was given quite late. Patient's only complaint that she really wants to go home. Vitals/I&O/Wt Last Vital Signs Temp 98.8 F 08/03/19 16:00 Pulse 61 08/03/19 16:00 Resp 17 08/03/19 16:00 BP 150/77 08/03/19 16:00 Pulse Ox 96 08/03/19 16:00 08/03/19 08/03/19 08/03/19 06:59 14:59 22:59 Output Total 200 / 200 Balance -200 / -200 Weight last 48 hrs Weight 101.514 kg Weight 100.652 kg Weight 105.551 kg Physical Exam Const: COMMON NORMALS: no apparent distress and alert GENERAL APPEARANCE: cooperative and well kempt NUTRITIONAL APPEARANCE: obese ORIENTATION/CONSCIOUSNESS: Yes awake, Yes oriented to person, Yes oriented to place and Yes confused; not oriented to time HENMT: COMMON NORMALS: normocephalic HEAD & SCALP: normocephalic Eye: COMMON NORMALS: PERRL and EOMs intact bilaterally PUPIL: Yes PERRL Neck/C-Spine: COMMON NORMALS: full ROM, no lymphadenopathy and no JVD Lymph: LYMPHATIC: no lymphadenopathy noted Resp: COMMON NORMALS: normal respiratory effort, no retractions, no use of accessory muscles and clear to auscultation bilaterally AUSCULTATION: clear to auscultation bilaterally Cardio: COMMON NORMALS: no JVD, regular rate, regular rhythm, S1 normal heart sound, S2 normal heart sound, no gallops, no clicks, no murmurs and no rub RATE: regular rate RHYTHM: regular rhythm HEART SOUNDS: S1 normal and S2 normal GI: COMMON NORMALS: normal to inspection, nondistended, normoactive bowel sounds, soft to palpation, non-tender, no hepatosplenomegaly, no masses and no bruits PALPATION: Yes soft and Yes no hepatosplenomegaly : COMMON NORMALS: Yes no CVA tenderness BLADDER/KIDNEY EXAM: Yes no CVA tenderness Back/Pelvis: COMMON NORMALS: no CVA tenderness Extremity: COMMON NORMALS: full ROM, no clubbing, cyanosis or edema, no calf tenderness and no pedal edema Neuro: COMMON NORMALS: moves all extremities SENSORIUM/ORIENTATION: Yes alert, Yes oriented to person, Yes oriented to place and No oriented to time COORDINATION/BALANCE: [id number] test normal (Unable to cooperate with exam) SPEECH: speech normal and other (Slight slurring of her speech at times,) MOTOR EXAM: strength 5/5 throughout COORDINATION: [id number] test normal (Unable to cooperate with exam) Psych: COMMON NORMALS: speech normal APPEARANCE: Yes grossly normal and Yes well kempt ATTITUDE: Yes agitated (Does become agitated at times,) SPEECH: Yes normal speech ATTENTION/CONCENTRATION: Yes attention grossly intact MEMORY/COGNITION: Yes memory grossly impaired Skin: NARRATIVE SKIN EXAM: Does have bruising on bilateral arms A&P Assessment and plan (1) Altered mental status: -Likely secondary to urinary tract infection and elevated ammonia levels -Patient's episode of nonresponsive, bradycardia, looking cool and clammy, is likely secondary to Seroquel, patient's family does not want aggressive treatment, do not want aggressive measures testing or interventions, patient DNR/DNI. Plan: -Decrease Seroquel to 25 mg at bedtime, given earlier at 7 PM -Urine culture negative, blood culture showing contamination -On Keflex -continue lactulose -DVT prophylaxis SCDs, anticoagulation contraindicated due to esophageal varices and thrombocytopenia Status: Acute Code(s): R41.82 - Altered mental status, unspecified (2) Urinary tract infection in elderly patient: As above Status: Acute Code(s): N39.0 - Urinary tract infection, site not specified (3) Liver lesion, right lobe: Will require outpatient follow-up Status: Acute Code(s): K76.9 - Liver disease, unspecified (4) Breast lump in female: Is being followed as outpatient Status: Acute Code(s): N63.0 - Unspecified lump in unspecified breast (5) GERD (gastroesophageal reflux disease): Status: Acute Code(s): K21.9 - Gastro-esophageal reflux disease without esophagitis (6) Hyperlipidemia: Status: Acute Code(s): E78.5 - Hyperlipidemia, unspecified (7) Bilateral cataracts: Status: Acute Code(s): H26.9 - Unspecified cataract (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 (9) Hepatic encephalopathy: Ammonia levels within normal limits Status: Acute Code(s): K72.90 - Hepatic failure, unspecified without coma (10) Thrombocytopenia: Status: Acute Code(s): D69.6 - Thrombocytopenia, unspecified (11) History of esophageal varices: No complaints of hemoptysis Status: Acute Code(s): Z87.19 - Personal history of other diseases of the digestive system (12) 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: Status: Acute Code(s): K75.81 - Nonalcoholic steatohepatitis (FLOYD); K74.60 - Unspecified cirrhosis of liver (13) Pancytopenia: -White blood cell count 1.5, hemoglobin 10.5, platelet count 39 -Patient and family wants to think about doing a bone marrow biopsy as outpatient -Patient and family are thinking about hospice care, but would like to give prison and physical therapy a try -Likely patient's pancytopenia is related to bone marrow pathology -B12, multiple myeloma pending -Patient does have a liver lobe lesion -It sounds a lot like patient and family do not want aggressive interventions, do not want chemotherapy -Awaiting a level 2, for prison placement Status: Acute Code(s): D61.818 - Other pancytopenia (14) Physical deconditioning: -Likely secondary to anemia, chronic medical problems -Currently patient medically stable -Waiting on level 2, for prison placement Status: Acute Code(s): R53.81 - Other malaise Attestations Medical Necessity Statement*: Requires continued hospitalization for UTI, altered mental status, deconditioning, awaiting prison placement Coding Level of Care Code Acute Account Developer for Chg 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
[2019-08-03] MEDS: donepezil 5 MG Tablet 10 MG PO (21:46)
[2019-08-03] MEDS: oxyCODONE 5 mg IR Tab/Cap PO (21:46)
[2019-08-03] MEDS: mirtazapine 15 mg Tablet PO (21:47)
[2019-08-04] VITALS (8 sets, daily range): BP systolic 132–162; BP diastolic 76–89; PULSE 63–84; RESP 16–19; TEMP 36.6–37.2; O2SAT 92–97
[2019-08-04 05:59] LABS: Hematocrit 32.4 % (37.0-47.0); Hemoglobin 10.5 g/dL (11.5-15.3); Mean Corpuscular HGB Conc 32.4 g/dL (30.0-36.0); Mean Corpuscular Hemoglobin 30.3 pg (28.0-34.0); Mean Corpuscular Volume 93.4 fL (81-99); Mean Platelet Volume 13.2 fL (7.4-10.4); Platelet Count 42 10^3/cmm (130-400); Red Blood Count 3.47 10^6/uL (4.1-5.3); Red Cell Distribution Width 15.5 % (12.1-15.1)
[2019-08-04 06:22] LABS: Ammonia 48 umol/L (11-51)
[2019-08-04 06:23] LABS: Alanine Aminotransferase 37 U/L (0-33); Albumin Level 3.7 g/dL (3.5-5.2); Alkaline Phosphatase 130 IU/L (35-105); Anion Gap 13.4 (5-19); Aspartate Amino Transferase 62 U/L (0-32); Blood Urea Nitrogen 14 mg/dL (8-23); Calcium 8.9 mg/Dl (8.8-10.2); Carbon Dioxide 24 mmol/L (22-29); Chloride 106 mmol/L (98-107); Globulin 2.7 g/dL (1.3-4.6); Glucose 138 mg/dL (74-106); Phosphorus 2.8 mg/dL (2.5-4.5); Potassium 3.4 mmol/L (3.5-5.1); Sodium 140 mmol/L (136-145); Total Bilirubin 1.6 mg/dL (0.15-1.2); Total Protein 6.4 g/dL (6.6-8.7)
[2019-08-04] MEDS: quetiapine 25 mg Tablet 50 MG PO (06:39)
[2019-08-04] MEDS: nitrofurantoin SR (BID) 100 mg Capsule PO ×2 (10:12→18:25)
[2019-08-04] MEDS: atorvastatin 40 mg Tablet PO (10:13)
[2019-08-04] MEDS: memantine 5 mg tablet 10 MG PO ×2 (10:15→18:25)
[2019-08-04] MEDS: levothyroxine 125 mcg Tablet PO (10:16)
[2019-08-04] MEDS: ascorbic acid 500 mg Tablet PO (10:16)
[2019-08-04] MEDS: pantoprazole DR 40 mg Tablet PO (10:16)
[2019-08-04] MEDS: b-complex-vitamin c Tablet 1 EACH PO (10:16)
[2019-08-04] MEDS: calcium carb-vit d 600mg/400unit 1 Tablet 1 EACH PO (10:17)
[2019-08-04] MEDS: multivitamin therapeutic Tablet 1 TAB PO (10:17)
[2019-08-04] MEDS: lactulose oral liq 20 gm/30 mL UDC PO ×3 (10:18→21:35)
[2019-08-04 11:47] LABS: Absolute Eosinophils 0.1 10^3/cmm (0.0-0.7); Band Neutrophils Absolute 0.4 10^3/cmm (0.0-1.2); Eosinophils 6 %; Lymphocytes 10 %; Monocytes Absolute 0.2 10^3/cmm (0.1-0.6); Segmented Neutrophils 54 %; Total Cells Counted 100 (0-100)
[2019-08-04 11:49] LABS: Platelet Estimate Decreased (Normal)
[2019-08-04 11:52] LABS: Anisocytosis 1+
--- NOTE | 2019-08-04 12:14 | PC.SOCIAL ---
Updated IMM Updated pt on Pg 2 IMM. Pt verbally understands. Family at side. No questions voiced. Provided pt a copy & left on bedside table. Signed, dated, & timed original in chart.
--- NOTE | 2019-08-04 13:36 | USCV_ITS ---
Rachelle Aopdaca Age: 83 Gender: F : 1935 Exam Date: 08/04/2019 14:48 Ordering Phys: Lobo Lew MD Technologist: Ellen River Exam Location: [facility] – [place] Indication: Shortness of breath BP: 132 / 80 HR: 63 Rhythm: Sinus Technical Quality: Technically difficult study MEASUREMENTS (Male / Female) Normal Values 2D ECHO LV Diastolic Diameter PLAX 3.6 cm 4.2 - 5.9 / 3.9 - 5.3 cm LV Systolic Diameter PLAX 2.5 cm LV Chamber Size 4.2 cm IVS Diastolic Thickness 1.3 cm 0.6 - 1.0 / 0.6 - 0.9 cm IVS Systolic Thickness 1.7 cm LVPW Diastolic Thickness 1.4 cm 0.6 - 1.0 / 0.6 - 0.9 cm LVPW Systolic Thickness 1.7 cm RV Chamber Size 3.0 cm LVOT Diameter 1.9 cm LV Ejection Fraction 2D Teich 60.4 % LA Diameter 3.9 cm LA Width 2.4 cm LA Height 5.4 cm RA Width 2.9 cm RA Height 5.3 cm Aorta at Sinotubular Diameter 2.4 cm M-MODE LV Diastolic Diameter MM 5.7 cm 4.2 - 5.9 / 3.9 - 5.3 cm LV Systolic Diameter MM 3.9 cm LV Ejection Fraction MM Teich 58.1 % IVS Diastolic Thickness MM 1.5 cm 0.6 - 1.0 / 0.6 - 0.9 cm IVS Systolic Thickness MM 1.7 cm LVPW Diastolic Thickness MM 1.4 cm 0.6 - 1.0 / 0.6 - 0.9 cm LVPW Systolic Thickness MM 1.7 cm RV Diastolic Diameter MM 1.8 cm Aortic Annulus Diameter 3.6 cm LA Ao Ratio MM 1.1 MV E Point Septal Separation 0.3 cm DOPPLER AV Peak Velocity 171.0 cm/s LVOT Peak Velocity 122.0 cm/s AV Area Cont Eq vti 2.0 cm squared AV Area Cont Eq pk 1.9 cm squared MV Area PHT 2.3 cm squared Mitral E to A Ratio 0.7 MV E' Velocity 10.0 cm/s Mitral E to MV E' Ratio 8.0 Mitral E to LV E' Lateral Ratio 7.4 Mitral E to LV E' Septal Ratio 8.8 TV Peak E Velocity 66.0 cm/s Right Atrial Pressure 3.0 mmHg PV Peak Velocity 141.0 cm/s RV Acceleration Time 0.1 s RV Ejection Time 0.3 s RV AcT/ET 0.3 FINDINGS Left Ventricle Normal left ventricular size and systolic function, EF 59% . No regional wall motion abnormalities. Grade I/IV diastolic dysfunction (abnormal relaxation filling pattern), normal to mildly elevated filling pressures. Right Ventricle Mildly increased right ventricular size. Normal right ventricular systolic function. Right Atrium Mildly increased right atrial size. Left Atrium The left atrium is normal in size. Mitral Valve No gross abnormalities noted Aortic Valve Thickened aortic valve. Moderate aortic valve calcification. Tricuspid Valve No gross abnormalities noted Pulmonic Valve Pulmonic valve not well visualized. Pericardium Normal pericardium without effusion. Aorta Normal ascending aorta dimension. CONCLUSIONS Normal left ventricular size and systolic function, EF 59% . No regional wall motion abnormalities. Grade I/IV diastolic dysfunction (abnormal relaxation filling pattern), normal to mildly elevated filling pressures. Mildly dilated right atrium right ventricle Thickened aortic valve. Moderate aortic valve calcification. There is no pericardial effusion. There are no intracardiac masses. There are no prior echocardiogram studies to compare. Dr Anastasia Landis MD [facility] (Electronically Signed) Final Date: 04 August 2019 16:40 S
--- NOTE | 2019-08-04 13:36 | USCV_ITS ---
Rachelle Apodaca Age: 83 Gender: F : 1935 Exam Date: 08/04/2019 14:22 Ordering Phys: Lobo Lew MD Technologist: Ellen River Exam Location: [facility] – [place] Indication: R/O DVT HISTORY: Shortness of breath, rule out deep vein thrombosis PROCEDURES: Comparison: none available. Venous duplex imaging was performed in bilateral lower extremities. The following venous structures were evaluated: common femoral vein, profunda vein, proximal portion of the greater saphenous vein, superficial femoral vein, and the popliteal vein. In addition, the posterior tibial and peroneal trunk were evaluated. Serial compression, augmentation maneuvers, and spectral Doppler flow evaluation were performed. FINDINGS: No evidence of DVT seen in any vessel visualized at this time. Mid calf veins not well seen, bilaterally. The veins were found to be easily compressible with spontaneous blood flow. Non pulsatile flow pattern. CONCLUSIONS No evidence of DVT in the above-mentioned identifiable veins. Could not visualize the mid calf veins bilaterally Dr Anastasia Landis MD [facility] (Electronically Signed) Final Date: 04 August 2019 16:25 S
--- NOTE | 2019-08-04 15:43 | P.PN_ITS ---
Subjective Subjective: Interval history: This afternoon patient's daughter and are at bedside, patient has no significant complaints, states that she really wants to go home, is quite tearful again this morning, but patient's family states that they cannot take care of her Given patient's increased oxygen requirements likely her episode of bradycardia, unresponsiveness was related to a pulmonary embolism secondary to DVT given her immobility. And patient cannot have pharmacologic DVT prophylaxis given her thrombocytopenia. Is on SCds. Though I advised family the only way I could assess that if she has pulmonary embolism is to do an extensive work-up including a CT angio. Which the family has hesitated given the risk of contrast-induced nephropathy. Patient's family is agreeable for bilateral lower extremity ultrasound, and a cardiac echocardiogram. But patient's family is really wary about aggressive interventions but is okay with ultrasounds.. Patient still awaiting level 2 for half-way placement. Vitals/I&O/Wt Last Vital Signs Temp 97.8 F 08/04/19 11:49 Pulse 64 08/04/19 11:49 Resp 18 08/04/19 11:49 BP 132/80 08/04/19 11:49 Pulse Ox 97 08/04/19 11:49 08/04/19 08/04/19 08/04/19 06:59 14:59 22:59 Intake Total 120 / 360 240 / 240 Balance 120 / -440 240 / 240 Weight last 48 hrs Weight 95.708 kg Weight 101.514 kg Physical Exam Const: COMMON NORMALS: no apparent distress and alert GENERAL APPEARANCE: cooperative and well kempt NUTRITIONAL APPEARANCE: obese ORIENTATION/CONSCIOUSNESS: Yes awake, Yes oriented to person and Yes oriented to place; not oriented to time Neck/C-Spine: COMMON NORMALS: no JVD Resp: COMMON NORMALS: normal respiratory effort, no retractions, no use of accessory muscles and clear to auscultation bilaterally AUSCULTATION: clear to auscultation bilaterally Cardio: COMMON NORMALS: no JVD, regular rate, regular rhythm, S1 normal heart sound, S2 normal heart sound, no gallops, no clicks, no murmurs and no rub RATE: regular rate RHYTHM: regular rhythm HEART SOUNDS: S1 normal and S2 normal GI: COMMON NORMALS: normal to inspection, nondistended, normoactive bowel sounds, soft to palpation, non-tender and no hepatosplenomegaly PALPATION: Yes soft and Yes no hepatosplenomegaly Extremity: COMMON NORMALS: full ROM, no clubbing, cyanosis or edema, no calf tenderness and no pedal edema Neuro: SENSORIUM/ORIENTATION: Yes alert, Yes oriented to person, Yes oriented to place and No oriented to time Psych: APPEARANCE: Yes well kempt A&P Assessment and plan (1) Altered mental status: -Likely secondary to urinary tract infection and elevated ammonia levels -Patient's episode of nonresponsive, bradycardia, looking cool and clammy, is likely secondary to Seroquel, patient's family does not want aggressive treatment, do not want aggressive measures testing or interventions, patient DNR/DNI. Patient family is agreeable to pulmonary embolism work-up including bilateral lower extremity ultrasound and cardiac echocardiogram. Patient's family does not want a CT angiogram at this time. Plan: -Possible altered mental status episode 2 days ago related to pulmonary embolism, unfortunately patient's not a good candidate for intervention including anticoagulation given her thrombocytopenia and high fall risk. Patient's family does not want an IVC filter placed. Patient's family does not want aggressive measures. -Decrease Seroquel to 25 mg at bedtime, given earlier at 7 PM -Urine culture negative, blood culture showing contamination -On Keflex -continue lactulose -DVT prophylaxis SCDs, anticoagulation contraindicated due to esophageal varices and thrombocytopenia Status: Acute Code(s): R41.82 - Altered mental status, unspecified (2) Urinary tract infection in elderly patient: As above Status: Acute Code(s): N39.0 - Urinary tract infection, site not specified (3) Liver lesion, right lobe: Will require outpatient follow-up Status: Acute Code(s): K76.9 - Liver disease, unspecified (4) Breast lump in female: Is being followed as outpatient Status: Acute Code(s): N63.0 - Unspecified lump in unspecified breast (5) GERD (gastroesophageal reflux disease): Status: Acute Code(s): K21.9 - Gastro-esophageal reflux disease without esophagitis (6) Hyperlipidemia: Status: Acute Code(s): E78.5 - Hyperlipidemia, unspecified (7) Bilateral cataracts: Status: Acute Code(s): H26.9 - Unspecified cataract (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 (9) Hepatic encephalopathy: Ammonia levels within normal limits Status: Acute Code(s): K72.90 - Hepatic failure, unspecified without coma (10) Thrombocytopenia: Status: Acute Code(s): D69.6 - Thrombocytopenia, unspecified (11) History of esophageal varices: No complaints of hemoptysis Status: Acute Code(s): Z87.19 - Personal history of other diseases of the digestive system (12) 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: Status: Acute Code(s): K75.81 - Nonalcoholic steatohepatitis (FLOYD); K74.60 - Unspecified cirrhosis of liver (13) Pancytopenia: -White blood cell count 1.5, hemoglobin 10.5, platelet count 39 -Patient and family wants to think about doing a bone marrow biopsy as outpatient -Patient and family are thinking about hospice care, but would like to give half-way and physical therapy a try -Likely patient's pancytopenia is related to bone marrow pathology -B12, multiple myeloma pending -Patient does have a liver lobe lesion -It sounds a lot like patient and family do not want aggressive interventions, do not want chemotherapy -Awaiting a level 2, for half-way placement Status: Acute Code(s): D61.818 - Other pancytopenia (14) Physical deconditioning: -Likely secondary to anemia, chronic medical problems -Currently patient medically stable -Waiting on level 2, for half-way placement Status: Acute Code(s): R53.81 - Other malaise Attestations Medical Necessity Statement*: Requires continued hospitalization, for altered mental status, deconditioning, awaiting half-way placement, level 2 Coding Level of Care Code 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
[2019-08-04] MEDS: mirtazapine 15 mg Tablet PO (21:37)
[2019-08-04] MEDS: donepezil 5 MG Tablet 10 MG PO (21:37)
[2019-08-04] MEDS: quetiapine 25 mg Tablet PO (21:44)
[2019-08-05] VITALS (8 sets, daily range): BP systolic 134–169; BP diastolic 76–82; PULSE 59–68; RESP 17–20; TEMP 36.6–37.1; O2SAT 92–95
[2019-08-05 06:43] LABS: Alanine Aminotransferase 35 U/L (0-33); Albumin Level 3.4 g/dL (3.5-5.2); Alkaline Phosphatase 125 IU/L (35-105); Anion Gap 13.6 (5-19); Aspartate Amino Transferase 52 U/L (0-32); Blood Urea Nitrogen 11 mg/dL (8-23); Calcium 9.1 mg/Dl (8.8-10.2); Carbon Dioxide 25 mmol/L (22-29); Chloride 107 mmol/L (98-107); Globulin 2.3 g/dL (1.3-4.6); Glucose 118 mg/dL (74-106); Magnesium 1.8 mg/dL (1.7-2.3); Potassium 3.6 mmol/L (3.5-5.1); Sodium 142 mmol/L (136-145); Total Bilirubin 1.8 mg/dL (0.15-1.2); Total Protein 5.7 g/dL (6.6-8.7)
[2019-08-05 06:48] LABS: Ammonia 49 umol/L (11-51)
[2019-08-05] MEDS: quetiapine 25 mg Tablet 50 MG PO (08:34)
[2019-08-05] MEDS: nitrofurantoin SR (BID) 100 mg Capsule PO ×2 (08:34→17:04)
[2019-08-05] MEDS: pantoprazole DR 40 mg Tablet PO (08:34)
[2019-08-05] MEDS: calcium carb-vit d 600mg/400unit 1 Tablet 1 EACH PO (08:34)
[2019-08-05] MEDS: multivitamin therapeutic Tablet 1 TAB PO (08:34)
[2019-08-05] MEDS: b-complex-vitamin c Tablet 1 EACH PO (08:35)
[2019-08-05] MEDS: levothyroxine 125 mcg Tablet PO (08:35)
[2019-08-05] MEDS: atorvastatin 40 mg Tablet PO (08:35)
[2019-08-05] MEDS: lactulose oral liq 20 gm/30 mL UDC PO ×4 (08:35→21:08)
[2019-08-05] MEDS: memantine 5 mg tablet 10 MG PO ×2 (08:35→17:04)
[2019-08-05] MEDS: ascorbic acid 500 mg Tablet PO (08:35)
--- NOTE | 2019-08-05 14:29 | P.PN_ITS ---
Subjective Subjective: Interval history: Patient has no complaints this morning, family at bedside, no fevers, no chills, no nausea, no vomiting Vitals/I&O/Wt Last Vital Signs Temp 98.6 F 08/05/19 12:00 Pulse 62 08/05/19 12:00 Resp 18 08/05/19 12:00 BP 144/78 08/05/19 12:00 Pulse Ox 94 08/05/19 12:00 08/04/19 08/05/19 08/05/19 22:59 06:59 14:59 Intake Total 480 / 480 Output Total 900 / 900 Balance -900 / -360 480 / 480 Weight last 48 hrs Weight 95.708 kg Physical Exam Const: COMMON NORMALS: no apparent distress and alert GENERAL APPEARANCE: cooperative and well kempt NUTRITIONAL APPEARANCE: obese ORIENTATION/CONSCIOUSNESS: Yes awake, Yes oriented to person and Yes oriented to place; not oriented to time Neck/C-Spine: COMMON NORMALS: no JVD Resp: COMMON NORMALS: normal respiratory effort, no retractions, no use of accessory muscles and clear to auscultation bilaterally AUSCULTATION: clear to auscultation bilaterally Cardio: COMMON NORMALS: no JVD, regular rate, regular rhythm, S1 normal heart sound, S2 normal heart sound, no gallops, no clicks, no murmurs and no rub RATE: regular rate RHYTHM: regular rhythm HEART SOUNDS: S1 normal and S2 normal GI: COMMON NORMALS: normal to inspection, nondistended, normoactive bowel sounds, soft to palpation, non-tender, no hepatosplenomegaly, no masses and no bruits PALPATION: Yes soft and Yes no hepatosplenomegaly Neuro: SENSORIUM/ORIENTATION: Yes alert, Yes oriented to person, Yes oriented to place and No oriented to time Psych: APPEARANCE: Yes well kempt Data : 08/06/19 06:32 08/06/19 06:32 A&P Assessment and plan (1) Altered mental status: -Likely secondary to urinary tract infection and elevated ammonia levels -Patient's episode of nonresponsive, bradycardia, looking cool and clammy, is likely secondary to Seroquel, patient's family does not want aggressive treatment, do not want aggressive measures testing or interventions, patient DNR/DNI. Plan: -Mental status at baseline -Decrease Seroquel to 25 mg at bedtime, given earlier at 7 PM -Urine culture negative, blood culture showing contamination -On Keflex -continue lactulose -DVT prophylaxis SCDs, anticoagulation contraindicated due to esophageal varices and thrombocytopenia Status: Resolved Code(s): R41.82 - Altered mental status, unspecified (2) Urinary tract infection in elderly patient: As above Status: Resolved Code(s): N39.0 - Urinary tract infection, site not specified (3) Liver lesion, right lobe: Will require outpatient follow-up Status: Acute Code(s): K76.9 - Liver disease, unspecified (4) Breast lump in female: Is being followed as outpatient Status: Acute Code(s): N63.0 - Unspecified lump in unspecified breast (5) GERD (gastroesophageal reflux disease): Status: Acute Code(s): K21.9 - Gastro-esophageal reflux disease without esophagitis (6) Hyperlipidemia: Status: Acute Code(s): E78.5 - Hyperlipidemia, unspecified (7) Bilateral cataracts: Status: Acute Code(s): H26.9 - Unspecified cataract (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 (9) Hepatic encephalopathy: Ammonia levels within normal limits Status: Acute Code(s): K72.90 - Hepatic failure, unspecified without coma (10) Thrombocytopenia: Status: Acute Code(s): D69.6 - Thrombocytopenia, unspecified (11) History of esophageal varices: No complaints of hemoptysis Status: Acute Code(s): Z87.19 - Personal history of other diseases of the digestive system (12) 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: Status: Acute Code(s): K75.81 - Nonalcoholic steatohepatitis (FLOYD); K74.60 - Unspecified cirrhosis of liver (13) Pancytopenia: -White blood cell count 1.5, hemoglobin 10.5, platelet count 39 -Patient and family wants to think about doing a bone marrow biopsy as outpatient -Patient and family are thinking about hospice care, but would like to give jail and physical therapy a try -Likely patient's pancytopenia is related to bone marrow pathology -B12, multiple myeloma pending -Patient does have a liver lobe lesion -It sounds a lot like patient and family do not want aggressive interventions, do not want chemotherapy -Awaiting a level 2, for jail placement Status: Acute Code(s): D61.818 - Other pancytopenia (14) Physical deconditioning: -Likely secondary to anemia, chronic medical problems -Currently patient medically stable -Waiting on level 2, for jail placement Status: Acute Code(s): R53.81 - Other malaise Attestations Medical Necessity Statement*: [id number] Coding Level of Care Code 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
[2019-08-05] MEDS: acetaminophen 325 mg Tablet 650 MG PO (19:20)
[2019-08-05] MEDS: mirtazapine 15 mg Tablet PO (21:08)
[2019-08-05] MEDS: donepezil 5 MG Tablet 10 MG PO (21:08)
[2019-08-05] MEDS: quetiapine 25 mg Tablet PO (21:08)
--- NOTE | 2019-08-05 23:22 | PC.NURSE ---
pt yelled at staff to leave her alone and get out of room alert to self with confusion.
[2019-08-06] VITALS: BP 148/82; PULSE 56; RESP 20; TEMP 37.1; O2SAT 92
[2019-08-06 04:00] VITALS: BP 146/77; PULSE 60; RESP 24; TEMP 37; O2SAT 93
--- NOTE | 2019-08-06 04:07 | PC.NURSE ---
pt resting in bed yelling out occ. States she wants to go home to get her out of this place, alert with confusion. Refusing to turn at this time.
--- NOTE | 2019-08-06 05:02 | PC.NURSE ---
pt refused to turn or to take any tylenol.
[2019-08-06 06:58] LABS: Basophils % 0.6 %; Eosinophils # 0.1 10^3/uL (0.0-0.8); Eosinophils % 8.4 %; Hemoglobin 10.2 g/dL (11.5-15.3); Lymphocytes # 0.2 10^3/uL (0.8-4.8); Lymphocytes % 14.8 %; Mean Corpuscular HGB Conc 32.9 g/dL (30.0-36.0); Mean Corpuscular Hemoglobin 31.5 pg (28.0-34.0); Mean Corpuscular Volume 95.7 fL (81-99); Monocytes # 0.2 10^3/uL (0.2-0.9); Monocytes % 14.8 %; Neutrophils # 0.9 10^3/uL (1.8-7.7); Neutrophils % 60.8 %; Nucleated Red Blood Cells % 0 %; Platelet Count 50 10^3/cmm (130-400); Red Blood Count 3.24 10^6/uL (4.1-5.3); Red Cell Distribution Width 15.3 % (12.1-15.1); White Blood Count 1.6 10^3/uL (4.0-10.0)
[2019-08-06 07:00] LABS: Ammonia 72 umol/L (11-51)
[2019-08-06 07:06] LABS: Alanine Aminotransferase 38 U/L (0-33); Albumin Level 3.4 g/dL (3.5-5.2); Alkaline Phosphatase 154 IU/L (35-105); Anion Gap 13.6 (5-19); Aspartate Amino Transferase 55 U/L (0-32); Blood Urea Nitrogen 12 mg/dL (8-23); Carbon Dioxide 25 mmol/L (22-29); Chloride 108 mmol/L (98-107); Globulin 2.7 g/dL (1.3-4.6); Glucose 113 mg/dL (74-106); Magnesium 2.1 mg/dL (1.7-2.3); Potassium 3.6 mmol/L (3.5-5.1); Sodium 143 mmol/L (136-145); Total Bilirubin 1.4 mg/dL (0.15-1.2); Total Protein 6.1 g/dL (6.6-8.7)
[2019-08-06 07:12] VITALS: BP 162/82; PULSE 62; RESP 18; TEMP 36.9; O2SAT 93
[2019-08-06] MEDS: quetiapine 25 mg Tablet 50 MG PO (07:14)
[2019-08-06] MEDS: atorvastatin 40 mg Tablet PO (09:02)
[2019-08-06] MEDS: nitrofurantoin SR (BID) 100 mg Capsule PO (09:02)
[2019-08-06] MEDS: pantoprazole DR 40 mg Tablet PO (09:02)
[2019-08-06] MEDS: calcium carb-vit d 600mg/400unit 1 Tablet 1 EACH PO (09:02)
[2019-08-06] MEDS: b-complex-vitamin c Tablet 1 EACH PO (09:03)
[2019-08-06] MEDS: levothyroxine 125 mcg Tablet PO (09:03)
[2019-08-06] MEDS: ascorbic acid 500 mg Tablet PO (09:03)
[2019-08-06] MEDS: lactulose oral liq 20 gm/30 mL UDC PO ×2 (09:03→12:48)
[2019-08-06] MEDS: memantine 5 mg tablet 10 MG PO (09:03)
[2019-08-06] MEDS: multivitamin therapeutic Tablet 1 TAB PO (09:03)
--- NOTE | 2019-08-06 10:21 | PC.SOCIAL ---
IMM Updated Updated pt on Pg 2 IMM. Pt verbally understands. No questions voiced. Provided pt a copy & left on bedside table. Signed, dated, & timed original in chart.
[2019-08-06 12:00] VITALS: BP 159/82; PULSE 64; RESP 18; TEMP 37.1; O2SAT 94
--- NOTE | 2019-08-06 12:06 | PC.NURSE ---
ot will behelping the patient with her bathing needs
[2019-08-06 16:00] VITALS: BP 151/84; PULSE 63; RESP 18; TEMP 36.9; O2SAT 94
--- NOTE | 2019-08-06 16:21 | PM.DCS ---
Discharge Providers Date of Admission: 07/28/19 16:33 Date of Discharge: 08/06/19 Attending Provider at Admission: Lobo Lew MD Attending Provider at Discharge: Salas Linares MD Primary Care Provider: XIN Leal Diagnoses at Discharge Discharge Diagnosis (1) Altered mental status: Status: Acute Problem details: Resolved (2) Urinary tract infection in elderly patient: Status: Acute Problem details: Urine culture ultimately negative. However, will complete 7 more days of Macrobid (3) Liver lesion, right lobe: Status: Acute Problem details: Consider outpatient follow-up (4) Breast lump in female: Status: Acute Problem details: Continue outpatient follow-up (5) GERD (gastroesophageal reflux disease): Status: Acute Problem details: Stable (6) Hyperlipidemia: Status: Acute Problem details: Stable (7) Bilateral cataracts: Status: Acute (8) Cedeno's palsy: Status: Acute (9) Hepatic encephalopathy: Status: Acute Problem details: Increase lactulose to 4 times daily, or titrate to 2-3 loose bowel movements per day (10) Thrombocytopenia: Status: Acute (11) History of esophageal varices: Status: Acute Problem details: Hemoglobin stable (12) 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: Status: Acute (13) Pancytopenia: Status: Acute (14) Physical deconditioning: Status: Acute Reason for Visit Reason for Visit: Reason For Visit: [facility] [address] Hospital Course Hospital Course: Rachelle presented with confusion. There was concern of UTI. She has underlying cirrhosis and there was concern for hepatic encephalopathy. She was given lactulose while in the hospital. She was treated for UTI. During her hospital course family believes she might benefit from skilled care, and or even considering hospice. However, they decided that they would like to take her home with home health. At time of discharge she was stable. She was on Macrobid and to complete 7 more days at home. Her mental status was back to baseline. She will take her lactulose 3-4 times daily, to achieve at least 2-3 loose bowel movements per day. Physical Exam Narrative: EXAM NARRATIVE: Cardiovascular regular rate and rhythm, Lungs clear Abdomen is soft, positive bowel sounds Extremities trace edema Discharge Data Data Completed and Pending: Completed Studies During Hospitalization Category Date Time Status CT abdomen pelvis w con* [id number] Urge nt Cat Scan 07/28/19 12:[address] head wo con* 7 [id number] Urgent Cat Scan 07/28/19 10:44 Completed XR chest 1V danis ble [id number] Stat Exams 08/03/19 12:22 Completed XR chest 1V danis ble [id number] Urgent Exams 07/28/19 10:44 Completed CV echo complete* [id number] Routine Ultrasound 08/04/19 13:36 [place] [id number] Routin e Ultrasound 08/04/19 13:36 Completed Pending at discharge Category Date Time Status CBC [Complete Blo od Count w/Auto] A M LABS Lab 08/07/19 04:00 Ordered CBC [Complete Blo od Count w/Auto] A M LABS Lab 08/08/19 04:00 Ordered Total Protein Gladys ctrophoresis Stat Lab 07/31/19 04:34 Results Urine Protein Gladys ctrop Random Stat Lab 08/03/19 23:17 Received Labs from last 24 hours 08/06/19 08/06/19 08/06/19 06:32 06:32 06:32 WBC 1.6 L RBC 3.24 L Hgb 10.2 L Hct 31.0 L MCV 95.7 MCH 31.5 MCHC 32.9 RDW 15.3 H Plt Count 50 L MPV 13.0 H Neut % (Auto) 60.8 Lymph % (Auto) 14.8 [place] % (Auto) 14.8 Eos % (Auto) 8.4 Baso % (Auto) 0.6 Neut # (Auto) 0.9 L Lymph # (Auto) 0.2 L [place] # (Auto) 0.2 Eos # (Auto) 0.1 Baso # (Auto) 0.0 Nucleated RBC % (a uto) 0 Nucleated RBCs # 0.0 Sodium 143 Potassium 3.6 Chloride 108 H Carbon Dioxide 25 Anion Gap 13.6 BUN 12 Creatinine 0.7 Glucose 113 H Calcium 9.0 Phosphorus 3.0 Magnesium 2.1 Total Bilirubin 1.4 H AST 55 H ALT 38 H Alkaline Phosphata se 154 H Ammonia 72 H Total Protein 6.1 L Albumin 3.4 L Globulin 2.7 Vitals: Last Vital Signs Temp 98.4 F 08/06/19 16:00 Pulse 63 08/06/19 16:00 Resp 18 08/06/19 16:00 BP 151/84 08/06/19 16:00 Pulse Ox 94 08/06/19 16:00 Discharge Plan Discharge Patient Disposition: Home Health Service Condition: Stable Prescriptions: New nitrofurantoin monohyd/m-cryst 100 mg Capsule 100 mg PO BID Qty: 14 RF: 0 lactulose 20 gram/30 mL Solution 15 ml PO QID Qty: 1000 RF: 0 Continued donepezil 10 mg Tablet 10 mg PO BEDTIME RF: 0 nadolol 20 mg Tablet 20 mg PO DAILY RF: 0 pantoprazole [Protonix] 40 mg Tablet,Delayed Release (Dr/Ec) 40 mg PO DAILY RF: 0 levothyroxine 125 mcg Tablet 125 mcg PO DAILY RF: 0 mirtazapine 15 mg Tablet 15 mg PO BEDTIME RF: 0 memantine 10 mg Tablet 10 mg PO BID RF: 0 quetiapine [Seroquel] 50 mg Tablet 50 mg PO BID RF: 0 Multiple Vitamins Tablet 1 tab PO DAILY RF: 0 Vitamin C 500 mg Tablet 500 mg PO DAILY RF: 0 Lasix 20 mg Tablet 20 mg PO DAILY PRN (Reason: Edema) RF: 0 Super B-50 Complex Capsule 1 cap PO DAILY RF: 0 Calcium 600 + D(3) 600-125 mg-unit Tablet 1 tab PO DAILY RF: 0 cranberry 15,000 mg PO DAILY PRN (Reason: UNKNOWN) RF: 0 Discontinued oxycodone 5 mg Tablet 5 mg PO Q6H PRN (Reason: Pain) RF: 0 lactulose [Constulose] 10 gram/15 mL Solution 15 ml PO DAILY RF: 0 Discharge Orders: Discharge Order (Routine); Ordered 08/06/19 Ordered By: Salas Linares Referrals: [facility] [Other] Discharge Diet: Low protein Discharge Activity: Resume usual activity Activity Restrictions/Additional Instructions: Discharged home with home health. Follow-up with primary care provider 3 to 5 days. 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
[2019-08-06 18:15] VITALS: RESP 18; TEMP 36.9; O2SAT 94
== END 2019-08-06 18:16 | disposition home health service (06) | DRG 689 ==
LOC: ER 16:43 → MEDSURG 17:01
PROVIDERS: Hospitalist; Admitting Provider Family Medicine; Emergency Provider Emergency Medicine; PCP Nurse Practitioner Family; Visit Provider Internal Medicine
DX: N39.0 Urinary tract infection, site not specified (principal); K72.00 Acute and subacute hepatic failure without coma; D61.818 Other pancytopenia; Z85.3 Personal history of malignant neoplasm of breast; K75.81 Nonalcoholic steatohepatitis (NASH); K21.9 Gastro-esophageal reflux disease without esophagitis; E78.5 Hyperlipidemia, unspecified; Z66 Do not resuscitate; K72.90 Hepatic failure, unspecified without coma; D69.6 Thrombocytopenia, unspecified; G51.0 Bell's palsy; K76.9 Liver disease, unspecified; H26.9 Unspecified cataract
CPT/HCPCS: 12345; 36415; 36416; 36600; 70450; 71045; 74177; 80053; 81001; 82140; 82607; 82803; 82962; 83605; 83690; 83735; 84100; 84155; 84165; 84260; 84484; 85007; 85025; 85027; 85610; 87040; 87086; 87205; 87804; 93005; 93306; 93970; 94640; 94664; 97110; 97116; 97162; 97166; 97530; 97535; 99283; A9270; J0743; J2543; J7030; J7040; J7050; Q9967

== ENCOUNTER 2019-08-15 14:34 | Outpatient (CLI) | payer MEDICARE, OTHER, SELFPAY ==
[2019-08-15 16:14] LABS: Basophils % 0.8 %; Eosinophils # 0.2 10^3/uL (0.0-0.8); Hematocrit 33.1 % (37.0-47.0); Hemoglobin 10.8 g/dL (11.5-15.3); Lymphocytes # 0.5 10^3/uL (0.8-4.8); Lymphocytes % 20.2 %; Mean Corpuscular HGB Conc 32.6 g/dL (30.0-36.0); Mean Corpuscular Hemoglobin 30.9 pg (28.0-34.0); Mean Corpuscular Volume 94.6 fL (81-99); Mean Platelet Volume 12.6 fL (7.4-10.4); Monocytes # 0.3 10^3/uL (0.2-0.9); Monocytes % 11.2 %; Neutrophils # 1.5 10^3/uL (1.8-7.7); Nucleated Red Blood Cells % 0 %; Platelet Count 96 10^3/cmm (130-400); Red Cell Distribution Width 15.2 % (12.1-15.1); White Blood Count 2.4 10^3/uL (4.0-10.0)
[2019-08-15 21:51] LABS: 25 Hydroxy Vitamin D 40 ng/mL (30-100)
[2019-08-15 22:12] LABS: Alanine Aminotransferase 45 U/L (0-33); Albumin Level 3.8 g/dL (3.5-5.2); Alkaline Phosphatase 242 IU/L (35-105); Anion Gap 17.7 (5-19); Aspartate Amino Transferase 64 U/L (0-32); Blood Urea Nitrogen 12 mg/dL (8-23); Calcium 10.2 mg/Dl (8.8-10.2); Carbon Dioxide 24 mmol/L (22-29); Chloride 104 mmol/L (98-107); Globulin 2.7 g/dL (1.3-4.6); Glucose 117 mg/dL (74-106); Potassium 3.7 mmol/L (3.5-5.1); Sodium 142 mmol/L (136-145); Total Bilirubin 1.4 mg/dL (0.15-1.2); Total Protein 6.5 g/dL (6.6-8.7)
== END 2019-08-15 14:35 | disposition home or self-care (01) ==
LOC: LAB 14:38
PROVIDERS: PCP Nurse Practitioner Family; Visit Provider Internal Medicine Hematology & Oncology
DX: K75.81 Nonalcoholic steatohepatitis (NASH) (principal); K74.69 Other cirrhosis of liver
CPT/HCPCS: 80053; 82306; 85025

== ENCOUNTER 2019-10-03 22:55 | Inpatient (IN) | payer MEDICARE, OTHER, SELFPAY ==
[2019-10-03 22:57] VITALS: BMI 27.3
--- NOTE | 2019-10-03 23:00 | ED_ITS ---
Entered by Mariam Trujillo, acting as scribe for Latoya Nava MD HPI - Female Genitourinary General: Chief complaint: Altered Mental Status Stated complaint: UTI/CONFUSED Time Seen by Provider: 10/03/19 22:59 Source: patient, family and EMS Mode of arrival: EMS History of Present Illness: HPI Narrative: 84 y/o female presents to the ED with confusion and UTI symptoms. Family states she was recently placed on abx for a UTI. Her symptoms have continued to worsen since then. Her ammonia level was elevated at that time and family states she has been hallucinating tonight. She takes lactulose 3-4 times a day and family states she has not had a BM in 2- 3 days. Pt appears lethargic and is unable to report what year it is. Pt has hx of liver cirrhosis. MD elicited complaint: UTI and other (confusion/lethargy) Onset (ago): day(s) Severity: similar to previous episodes Consistency: progressively worsening Associated symptoms: Deny abdominal pain, headache(s) or nausea Review of Systems Const: Denies: chills, body aches or change in appetite Eyes: Denies: blurry vision or eye discomfort ENMT: Denies: throat pain or dental pain Card: Denies: chest pain Resp: Denies: shortness of breath GI: Reports: constipation; Denies: abdominal pain, nausea, vomiting or diarrhea : Reports: painful urination Musc: Denies: neck pain or back pain Skin/Breast: Denies: rash Neuro: Reports: confusion; Denies: headache Psych: Denies: depression Mauricio/Lymph: Denies: easy bruising All/Imm: Denies: hives [facility] ED PFSH: Medical History (Updated 10/04/19 @ 00:54 by Latoya Nava MD) Bilateral pubic rami fractures Closed right femoral fracture Hepatic encephalopathy Increase lactulose to 4 times daily, or titrate to 2-3 loose bowel movements per day History of breast cancer History of esophageal varices Hemoglobin stable 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 Thrombocytopenia Surgical History (Updated 07/28/19 @ 16:49 by Lobo Lew MD) H/O knee surgery H/O mastectomy History of hip surgery Family History (Updated 07/28/19 @ 16:49 by Lobo Lew MD) Daughter CAD (coronary artery disease) Other Diabetes Social History (Updated 07/28/19 @ 16:49 by Lobo Lew MD) Smoking and tobacco status: never smoked Alcohol intake: never Physical Exam Const: COMMON NORMALS: no apparent distress GENERAL APPEARANCE: lethargic ORIENTATION/CONSCIOUSNESS: Yes oriented to person and Yes lethargic; not oriented to place and not oriented to time HENMT: COMMON NORMALS: normocephalic and head/scalp atraumatic HEAD & SCALP: normocephalic and atraumatic Eye: COMMON NORMALS: PERRL and EOMs intact bilaterally PUPIL: Yes PERRL Neck/C-Spine: COMMON NORMALS: full ROM and supple Chest: COMMONS NORMALS: inspection of chest normal and palpation of chest normal Resp: COMMON NORMALS: normal respiratory effort, no retractions, no use of accessory muscles and clear to auscultation bilaterally AUSCULTATION: clear to auscultation bilaterally Cardio: COMMON NORMALS: regular rate, regular rhythm and no murmurs RATE: regular rate RHYTHM: regular rhythm GI: COMMON NORMALS: normal to inspection, nondistended, normoactive bowel sounds, soft to palpation, non-tender and no masses PALPATION: Yes soft Extremity: COMMON NORMALS: normal to inspection and full ROM Neuro: COMMON NORMALS: moves all extremities and no focal motor deficits SENSORIUM/ORIENTATION: Yes oriented to person, No oriented to place, No oriented to time and Yes lethargic Psych: COMMON NORMALS: cooperative Course Vital Signs: Vital signs: Vital Signs Temperature 98.4 F 10/03/19 23:02 Pulse Rate 62 10/04/19 00:00 Respiratory Rate 16 10/04/19 00:00 Blood Pressure 154/83 10/04/19 00:00 Pulse Oximetry 96 10/04/19 00:00 MDM - Female MDM Narrative: Medical decision making narrative: Rachelle presents here with altered mental status that is likely due to her dementia worsening. She is slightly agitated here. Patient's lab work here is all normal besides a neutropenia that is chronic from her cirrhosis. Her ammonia levels is normal. She has no signs of meningitis and CT head is normal. Family states that they are unable to care for her and she has been falling. Will admit her for further evaluation and possible detention placement. Lab Data: Labs: Lab Results 10/03/19 10/03/19 10/03/19 Range/Units 22:28 22:28 23:15 WBC 1.5 L (4.0-10.0) 10^3/ uL RBC 3.69 L (4.1-5.3) 10^6/u L Hgb 11.2 L (11.5-15.3) g/dL Hct 34.7 L (37.0-47.0) % MCV 94.0 (81-99) fL MCH 30.4 (28.0-34.0) pg MCHC 32.3 (30.0-36.0) g/dL RDW 14.4 (12.1-15.1) % Plt Count 38 L (130-400) 10^3/c mm MPV 12.3 H (7.4-10.4) fL Neut % (Auto) 51.4 % Lymph % (Auto) 31.8 % Karnes % (Auto) 9.1 % Eos % (Auto) 6.5 % Baso % (Auto) 0.6 % Neut # (Auto) 0.8 L* (1.8-7.7) 10^3/u L Lymph # (Auto) 0.5 L (0.8-4.8) 10^3/u L Karnes # (Auto) 0.1 L (0.2-0.9) 10^3/u L Eos # (Auto) 0.1 (0.0-0.8) 10^3/u L Baso # (Auto) 0.0 (0.0-0.1) 10^3/u L Nucleated RBC % (a uto) 0 % Nucleated RBCs # 0.0 /100WBC Sodium 144 (136-145) mmol/L Potassium 4.0 (3.5-5.1) mmol/L Chloride 107 (98-107) mmol/L Carbon Dioxide 25 (22-29) mmol/L Anion Gap 16.0 (5-19) BUN 15 (8-23) mg/dL Creatinine 0.7 (0.5-0.9) mg/dL Glucose 94 (65-115) mg/dL Calculated Osmolal ity 294 (285-295) mOsm/k g Calcium 9.6 (8.5-10.5) mg/dL Total Bilirubin 1.3 H (0.15-1.2) mg/dL AST 35 H (0-32) U/L ALT 21 (0-33) U/L Alkaline Phosphata se 98 (35-105) IU/L Ammonia 33 (11-51) umol/L Total Protein 6.6 (6.6-8.7) g/dL Albumin 4.0 (3.5-5.2) g/dL Globulin 2.6 (1.3-4.6) g/dL Urine Color (Yellow) Urine Appearance (CLEAR) Urine pH (5-7) Ur Specific Gravit y (1.005-1.030) Urine Protein (Negative) Urine Glucose (UA) (Normal) Urine Ketones (Negative) Urine Blood (Negative) Urine Nitrate (Negative) Urine Bilirubin (NEGATIVE) Urine Urobilinogen (Negative) mg/dL Ur Leukocyte Radha ase (Negative) 10/04/19 Range/Units 00:05 WBC (4.0-10.0) 10^3/ uL RBC (4.1-5.3) 10^6/u L Hgb (11.5-15.3) g/dL Hct (37.0-47.0) % MCV (81-99) fL MCH (28.0-34.0) pg MCHC (30.0-36.0) g/dL RDW (12.1-15.1) % Plt Count (130-400) 10^3/c mm MPV (7.4-10.4) fL Neut % (Auto) % Lymph % (Auto) % Karnes % (Auto) % Eos % (Auto) % Baso % (Auto) % Neut # (Auto) (1.8-7.7) 10^3/u L Lymph # (Auto) (0.8-4.8) 10^3/u L Karnes # (Auto) (0.2-0.9) 10^3/u L Eos # (Auto) (0.0-0.8) 10^3/u L Baso # (Auto) (0.0-0.1) 10^3/u L Nucleated RBC % (a uto) % Nucleated RBCs # /100WBC Sodium (136-145) mmol/L Potassium (3.5-5.1) mmol/L Chloride (98-107) mmol/L Carbon Dioxide (22-29) mmol/L Anion Gap (5-19) BUN (8-23) mg/dL Creatinine (0.5-0.9) mg/dL Glucose (65-115) mg/dL Calculated Osmolal ity (285-295) mOsm/k g Calcium (8.5-10.5) mg/dL Total Bilirubin (0.15-1.2) mg/dL AST (0-32) U/L ALT (0-33) U/L Alkaline Phosphata se (35-105) IU/L Ammonia (11-51) umol/L Total Protein (6.6-8.7) g/dL Albumin (3.5-5.2) g/dL Globulin (1.3-4.6) g/dL Urine Color Yellow (Yellow) Urine Appearance Clear (CLEAR) Urine pH 7 (5-7) Ur Specific Gravit y 1.010 (1.005-1.030) Urine Protein Neg (Negative) Urine Glucose (UA) Norm (Normal) Urine Ketones Negative (Negative) Urine Blood Neg (Negative) Urine Nitrate Negative (Negative) Urine Bilirubin Neg (NEGATIVE) Urine Urobilinogen Norm (Negative) mg/dL Ur Leukocyte Radha ase Negative (Negative) Imaging Data: CT Head: Radiologist's impression: [place] [address] CT Scan Report Signed Patient: Rachelle Apodaca Unit #: [id number] : 1935 4 Age/Sex: 84 / F ADM Date: 10/03/19 Loc: ER Room/Bed: Attending Dr: Ordering Provider/Ordering MD: Latoya Nava MD Date of Service: 10/03/19 Procedure(s): CT head wo con* [id number] Accession Number(s): [id number] Report Number: [id number] PROCEDURE INFORMATION: Exam: CT Head Without Contrast Exam date and time: 10/03/2019 11:06 PM Age: 84 years old Clinical indication: Pain; Headache not specified; Additional info: AMS TECHNIQUE: Imaging protocol: Computed tomography of the head without contrast. Total DLP: 812.24 mGy-cm Radiation optimization: All CT scans at this facility use at least one of these dose optimization techniques: automated exposure control; mA and/or kV adjustment per patient size (includes targeted exams where dose is matched to clinical indication); or iterative reconstruction. COMPARISON: CT head wo con* [id number] 07/28/2019 11:08 AM FINDINGS: Brain: No acute intracranial hemorrhage or mass effect. There is decreased attenuation in the periventricular white matter, likely from microvascular disease. No definite acute infarct by CT. MRI could be more sensitive/specific for detection, as clinically directed. Ventricles: Ventricle size is normal for age. Bones/joints: No definite acute skull fracture. Sinuses: Included paranasal sinuses are essentially clear. Mastoid air cells: No significant acute finding. Vasculature: Vascular calcifications in the internal carotid and vertebral basilar systems. CT/CT head wo con* [id number] IMPRESSION: 1. No acute intracranial hemorrhage or mass effect. 2. Changes of microvascular disease. 3. No definite acute infarct by CT. 4. Other findings discussed above. CXR: Attestation: I personally reviewed and interpreted this imaging study as follows: My impression: no acute abnormality EKG Data: EKG 1: Attestation: I personally reviewed and interpreted this EKG as follows: EKG Data: 10/04/19 EKG interpretation time: 00:37 Interpretation: nsr hr [address] or t wave abnormalities qrs 109 qtc 461 Discharge Plan Discharge Patient Disposition: Admitted As Inpatient Admit Provider: Obdulio Munoz Clinical Impression: 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 Altered mental status Qualifiers: Altered mental status type: unspecified Qualified Code(s): R41.82 - Altered mental status, unspecified Condition: Stable Referrals: Jef Montesinos DO [Primary Care Provider] - Coding Level of Care Code ED Engineering Lecturer for Chg Fwd Exam Comprehensive The documentation recorded by the Ronnie chaudhary Ashley, accurately reflects the service I personally performed and the decisions made by , Latoya Nava MD Oct 03, 2019 22:55
[2019-10-03 23:02] VITALS: BP 150/73; PULSE 60; RESP 18; TEMP 36.9; O2SAT 95
--- NOTE | 2019-10-03 23:04 | CTR_ITS ---
PROCEDURE INFORMATION: Exam: CT Head Without Contrast Exam date and time: 10/03/2019 11:06 PM Age: 84 years old Clinical indication: Pain; Headache not specified; Additional info: AMS TECHNIQUE: Imaging protocol: Computed tomography of the head without contrast. Total DLP: 812.24 mGy-cm Radiation optimization: All CT scans at this facility use at least one of these dose optimization techniques: automated exposure control; mA and/or kV adjustment per patient size (includes targeted exams where dose is matched to clinical indication); or iterative reconstruction. COMPARISON: CT head wo con* [id number] 07/28/2019 11:08 AM FINDINGS: Brain: No acute intracranial hemorrhage or mass effect. There is decreased attenuation in the periventricular white matter, likely from microvascular disease. No definite acute infarct by CT. MRI could be more sensitive/specific for detection, as clinically directed. Ventricles: Ventricle size is normal for age. Bones/joints: No definite acute skull fracture. Sinuses: Included paranasal sinuses are essentially clear. Mastoid air cells: No significant acute finding. Vasculature: Vascular calcifications in the internal carotid and vertebral basilar systems. CT/CT head wo con* [id number] IMPRESSION: 1. No acute intracranial hemorrhage or mass effect. 2. Changes of microvascular disease. 3. No definite acute infarct by CT. 4. Other findings discussed above. Radiation Dose CTDIVOL = (mGy): DLP = 812.24 (mGy-cm)
--- NOTE | 2019-10-03 23:04 | XR_ITS ---
WS: [id number] Portable AP upright chest, 10/03/2019 Clinical Data: ams Comparison: Portable chest, 08/03/2019. Findings: No nodules, masses or effusions are seen. The heart is normal. The pulmonary vascularity is not increased. No pneumonia or pneumothorax is seen. The aortic arch and descending aorta show calci fication and tortuosity. Minimal bilateral lower lobe linear atelectasis is present. There are clips in the right axilla from surgery. There is a plate fixed with orthopedic screws in the distal left cl avicle. XR/XR chest 1V portable [id number] Impression: 1. Atherosclerosis. 2. Minimal bibasilar linear atelectasis.
--- NOTE | 2019-10-03 23:05 | ECG_ITS ---
Measurements Intervals Zenia Rate: 53 P: 86 CO: 265 QRS: -9 QRSD: 109 T: 48 QT: 477 QTc: 452 SINUS BRADYCARDIA WITH FIRST DEGREE AV BLOCK MODERATE T-WAVE ABNORMALITY, CONSIDER ANTERIOR ISCHEMIA First degree AV block now present Sinus rhythm no longer present Ventricular premature complex(es) no longer present Myocardial infarct finding no longer present T-wave abnormality still present Possible ischemia still prese Compared to ECG 08/03/2019 02:50:52 First degree AV block now present Ventricular premature complex(es) no longer present Possible ischemia still present Electronically Signed On 10-04-2019 17:21:57 CDT by Jh Newell M.D. [email or web address]
[2019-10-03 23:24] LABS: Basophils % 0.6 %; Eosinophils # 0.1 10^3/uL (0.0-0.8); Eosinophils % 6.5 %; Hematocrit 34.7 % (37.0-47.0); Hemoglobin 11.2 g/dL (11.5-15.3); Lymphocytes # 0.5 10^3/uL (0.8-4.8); Lymphocytes % 31.8 %; Mean Corpuscular HGB Conc 32.3 g/dL (30.0-36.0); Mean Corpuscular Hemoglobin 30.4 pg (28.0-34.0); Mean Platelet Volume 12.3 fL (7.4-10.4); Monocytes # 0.1 10^3/uL (0.2-0.9); Monocytes % 9.1 %; Neutrophils % 51.4 %; Nucleated Red Blood Cells % 0 %; Platelet Count 38 10^3/cmm (130-400); Red Blood Count 3.69 10^6/uL (4.1-5.3); Red Cell Distribution Width 14.4 % (12.1-15.1); White Blood Count 1.5 10^3/uL (4.0-10.0)
[2019-10-03 23:31] LABS: Neutrophils # 0.8 10^3/uL (1.8-7.7)
[2019-10-03 23:38] LABS: Ammonia 33 umol/L (11-51)
[2019-10-03 23:44] LABS: Alanine Aminotransferase 21 U/L (0-33); Alkaline Phosphatase 98 IU/L (35-105); Aspartate Amino Transferase 35 U/L (0-32); Blood Urea Nitrogen 15 mg/dL (8-23); Calcium 9.6 mg/dL (8.5-10.5); Carbon Dioxide 25 mmol/L (22-29); Chloride 107 mmol/L (98-107); Globulin 2.6 g/dL (1.3-4.6); Glucose 94 mg/dL (65-115); Osmolality Calculated 294 mOsm/kg (285-295); Sodium 144 mmol/L (136-145); Total Bilirubin 1.3 mg/dL (0.15-1.2); Total Protein 6.6 g/dL (6.6-8.7)
[2019-10-04] VITALS (10 sets, daily range): BP systolic 154–177; BP diastolic 75–93; PULSE 54–70; RESP 16–20; TEMP 36.4–37.2; O2SAT 90–98
[2019-10-04 00:15] LABS: Add Urine Microscopic? NO
[2019-10-04 00:16] LABS: Bilirubin Urine Neg (NEGATIVE); Blood Urine Neg (Negative); Glucose Urine UA Norm (Normal); Ketones Urine Negative (Negative); Leukocyte Esterase Urine Negative (Negative); Nitrate Urine Negative (Negative); Protein Urine Neg (Negative); Urine Appearance Clear (CLEAR); Urine Color Yellow (Yellow); Urobilinogen Urine Norm (Negative); pH Urine 7 (5-7)
--- NOTE | 2019-10-04 01:32 | P.HP_ITS ---
Providers/Chief Complaint Admitting Physician: Obdulio Munoz MD Primary Care Provider: Jef Montesinos DO Chief Complaint: UTI/CONFUSED History of Present Illness Rachelle Apodaca is a 84 year old female who has a history of nonalcoholic steatohepatitis, liver cirrhosis, dementia, hepatic encephalopathy, was recently discharged from the hospital after being managed for acute on chronic confusion, she was treated with antibiotics for UTI, urine cultures were negative, her lactulose dose was increased to 4 times daily and she was discharged on Macrobid. She was brought in today by the family for chief complaint of not being able to take care of her, acute on chronic confusion and generalized weakness. Family is at the bedside who is endorsing that she was in her usual state of health, compliant with her medications, she has not eaten well in last few days, she is constipated, no bowel movement in last 48 hours, she has been using lactulose, no fever, shortness of breath, chest pain or dysuria. When she gets up she tries to eat a little bit of breakfast then she spends most of her day sitting in her love seat. She experiences hallucinations. Until about 2 PM her behavior changed and she was very belligerent and was complaining about everything as per the family, is not able to take care of her and decided to bring her to the hospital. Diagnostics in ER revealed BMP but neutropenia with normal urinalysis, patient is denying dysuria to me No abdominal pain, No asterixis, Patient did not want to stay in the hospital and was persistently in tears stat ing she wanted to go home, at last decided to stay for night for monitoring of white count Review of Systems Const: Reports: change in appetite and fatigue; Denies: fever, chills or body aches Eyes: Denies: change in vision ENMT: Denies: throat pain Card: Denies: chest pain or palpitations Resp: Denies: shortness of breath GI: Denies: abdominal pain, nausea or coffee grounds in vomit : Denies: flank pain, difficulty urinating or painful urination Musc: Denies: neck pain or extremity swelling Skin/Breast: Denies: rash or itching Neuro: Denies: headache Psych: Reports: anxiety, sleeping less, change in appetite, irritability, memory loss and visual hallucinations Endo: Denies: excessive urination or cold intolerance Mauricio/Lymph: Denies: easy bruising All/Imm: Denies: hives Medications/Allergies Home Medications Medication Instructions Recorded Confirmed Last Taken Type amoxicillin-pot clavulanate 1 tab PO BID 10/03/19 10/03/19 10/03/19 History [Augmentin] lactulose 15 ml PO TID 10/03/19 10/03/19 10/03/19 History melatonin 5 mg PO DAILY 10/03/19 10/03/19 10/03/19 History simvastatin 20 mg PO QPM 10/03/19 10/03/19 10/03/19 History Allergies Allergy/AdvReac Type Severity Reaction Status Date / Time candesartan [From Atacand] Allergy ADR-Cough Verified 10/03/19 23:12 cefaclor [From Ceclor] Allergy Unknown Verified 07/28/19 10:49 ceftazidime [From Fortaz] Allergy Unknown Verified 07/28/19 10:49 lorazepam [From Ativan] Allergy Unknown Verified 07/28/19 10:49 Sulfa (Sulfonamide Allergy Unknown Verified 07/28/19 10:49 Antibiotics) PFSH Acute PFSH: Medical History Bilateral pubic rami fractures Closed right femoral fracture Hepatic encephalopathy Increase lactulose to 4 times daily, or titrate to 2-3 loose bowel movements per day History of breast cancer History of esophageal varices Hemoglobin stable 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 Thrombocytopenia Surgical History H/O knee surgery H/O mastectomy History of hip surgery Family History Daughter CAD (coronary artery disease) Other Diabetes Social History Smoking and tobacco status: never smoked Alcohol intake: never Vitals/I&O/Wt Last Vital Signs Temp 98.4 F 10/03/19 23:02 Pulse 62 10/04/19 00:00 Resp 16 10/04/19 00:00 BP 154/83 10/04/19 00:00 Pulse Ox 96 10/04/19 00:00 Weight last 48 hrs Weight 83.915 kg Physical Exam Narrative: EXAM NARRATIVE: This is an elderly female who is very tearful and emotional, and kept stating that she wanted to go home Asterixis negative, she is awake alert oriented x3, has good decision-making capacity, She is wearing dentures S1, S2 no signs of heart failure or JVD Abdomen soft nontender nondistended bowel sound present, splenomegaly y Lung auscultation reveals normal breath sounds without adventitious sounds Nonfocal neurological exam, Her mood is very irritable No signs of ischemic gangrene or ulcer on her extremities Data : 10/03/19 22:28 10/03/19 22:28 A&P Assessment and plan (1) Altered mental status: Status: Acute Qualifiers: Altered mental status type: unspecified Qualified Code(s): R41.82 - Altered mental status, unspecified Code(s): R41.82 - Altered mental status, unspecified (2) Physical deconditioning: Status: Acute Code(s): R53.81 - Other malaise (3) Liver lesion, right lobe: Status: Acute Code(s): K76.9 - Liver disease, unspecified (4) 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: Status: Acute Code(s): K75.81 - Nonalcoholic steatohepatitis (ALBA); K74.60 - Unspecified cirrhosis of liver Additional A&P Information 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 with hepatic encephalopathy grade 1 Irritable behavior, ammonia level normal, no signs of UTI, patient is denying dysuria, She is constipated, she is eating less, however does not look dehydrated, No abdominal pain She is neutropenic I will treat her with cefepime for now Monitor CBC in the morning Rifaximin, increase lactulose dose Acute on chronic psychotic behavior with underlying dementia Patient is on mirtazapine and Seroquel at home, as per the family she is getting more belligerent in her behavior and there is a change in her personality Patient is adamant that she would not like to go to any nursing facility, she prefers to stay home Acute on chronic neutropenia No fever or signs of sepsis, Cefepime for now This is most likely secondary to portal hypertension and hypersplenism, normal hemoglobin Chronic thrombocytopenia: Hemoglobin stable, I would avoid using anticoagulation on her Would use SCDs Regular diet Full code Attestations Medical Necessity Statement*: Anticipating discharge in less than 48 hours needs monitoring for neutropenia Time Spent in Patient Care: 40 Coding Level of Care Code Acute Information Services Vice President for Chg Fwd Diagnoses Altered mental status R41.82 Altered mental status type: unspecified Physical deconditioning R53.81 Liver lesion, right lobe K76.9 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
--- NOTE | 2019-10-04 03:57 | PC.NURSE ---
Report called to Chelsie Vences.
--- NOTE | 2019-10-04 04:45 | PC.NURSE ---
No BP in R arm
[2019-10-04] MEDS: quetiapine 25 mg Tablet 50 MG PO ×2 (08:24→17:08)
[2019-10-04] MEDS: levothyroxine 125 mcg Tablet PO (08:25)
[2019-10-04] MEDS: pantoprazole DR 40 mg Tablet PO (08:25)
[2019-10-04] MEDS: cefepime 1,000 MG in sodium chloride 0.9% (plus) 100 ML 200 MG IV (08:32)
[2019-10-04] MEDS: lactulose oral liq 20 gm/30 mL UDC 30 GM PO ×4 (08:33→20:54)
[2019-10-04 10:05] LABS: Basophils % 1.1 %; Eosinophils # 0.1 10^3/uL (0.0-0.8); Eosinophils % 7.5 %; Hematocrit 36.2 % (37.0-47.0); Hemoglobin 11.7 g/dL (11.5-15.3); Lymphocytes # 0.4 10^3/uL (0.8-4.8); Lymphocytes % 22.4 %; Mean Corpuscular HGB Conc 32.3 g/dL (30.0-36.0); Mean Corpuscular Hemoglobin 31.5 pg (28.0-34.0); Mean Corpuscular Volume 97.6 fL (81-99); Mean Platelet Volume 12.8 fL (7.4-10.4); Monocytes # 0.2 10^3/uL (0.2-0.9); Monocytes % 10.9 %; Neutrophils % 58.1 %; Nucleated Red Blood Cells % 0 %; Platelet Count 47 10^3/cmm (130-400); Red Blood Count 3.71 10^6/uL (4.1-5.3); Red Cell Distribution Width 14.6 % (12.1-15.1); White Blood Count 1.7 10^3/uL (4.0-10.0)
--- NOTE | 2019-10-04 12:03 | PC.CHAP ---
Pastoral Care Encounter/Spiritual Assessment Type of Contact [] Declined early childhood worker visit [] Patient/Family/Request visit [] Outpatient visit [] Follow-up visit [] Physician referral [] Code/Alert [x] Routine visit [] Staff referral [] Actively dying [] Patient sleeping [] Family support [] [] Out of room [] Palliative care [] [] Receiving care in room [] Pre-surgical visit [] Trauma [] Long length of stay [] ICU visit [] Other: Relational/Emotional Strength [x] Patient feels connected with others/family/visitors/staff [] Distress [] Loneliness/isolation [] Abandonment Spirituality of Patient []x Person of Adriane [] Attends Yarsanism of their Adriane [x] Believes in Prayer [] Reads Bible or Sikh materials [] There are Spiritual issues to be addressed Caustic Strength Inspector Interventions [x] Prayer [x] Active listening [x] Non-anxious presence [x] Spiritual/emotional support [] Crisis/trauma care [x] Spiritual counseling [] Bereavement support [] Provided bereavement packet [] Provided Bible/devotional materials [] Provided toy/stuffed animal, coloring book to patient or family member [] Provided Communion [] Anointing/[place] [] Salvation [] Completed spiritual assessment [] Other: Impact on Illness or Injury [] Angry [] Fearful [] Anxious [] Often cries [] Exhaustion [] Unable to work [] Unable to attend restorationist [] Unable to walk/stand [] Unable to read [] Unable to drive [] Unable to eat/drink [] Unable to sleep [] Unable to be with family [] Patient intubated [x] Other: n/a Summary Time spent with patient 4 minutes
--- NOTE | 2019-10-04 12:13 | PM.PSYCN ---
Providers/Reason for Consult Consulting Physican/Specialty*: Jake Joseph MD Psychiatry Reason for Consult*: Increasing irascibility. Family unable to manage her at home. Attending Physician: Tunde Macdonald Primary Care Provider: Jef Montesinos DO Psych Consult HPI History of Present Illness Rachelle Apodaca is a 84 year old female with a history of nonalcoholic steatohepatitis, early dementia, and recurring bladder infections who was stabilized at [facility] in July. She was sent home on quetiapine 50 mg twice daily for her psychiatric symptoms and melatonin for sleep. The patient became obtunded on her quetiapine and her urologist suggested that the family wean the patient off in a stepwise fashion. 3 days after she had her last dose of quetiapine she erupted and fulminant rage. She was also said to be hallucinating, although I could not get a clear history from the patient or the family. The family called the patient's urologist and [place], and were told that the patient should be titrated back on quetiapine to a final dose of 50 mg p.o. twice daily. Unfortunately the patient has remained increasingly irritable, agitated and the family (daughter, who is wheelchair-bound, and , now in his 80s) can no longer manage her care. Referring physician raised the question of transfer to a geriatric psychiatry unit, which is not available here and definitely is a higher level of care than we can provide for this type patient. Review of Systems Narrative: onst: Reports: change in appetite and fatigue; Denies: fever, chills or body aches Eyes: Denies: change in vision ENMT: Denies: throat pain Card: Denies: chest pain or palpitations Resp: Denies: shortness of breath GI: Denies: abdominal pain, nausea or coffee grounds in vomit : Denies: flank pain, difficulty urinating or painful urination Musc: Denies: neck pain or extremity swelling Skin/Breast: Denies: rash or itching Neuro: Denies: headache Psych: Reports: anxiety, sleeping less, change in appetite, irritability, memory loss and visual hallucinations Endo: Denies: excessive urination or cold intolerance Mauricio/Lymph: Denies: easy bruising All/Imm: Denies: hives Meds Current Medications: Current Medications Generic Name Dose Route Start Last Admin Trade Name Freq PRN Reason Stop Dose Admin Cefepime HCl 1,000 mg/ Sodium 100 mls @ 200 mls /hr 10/04/19 05:00 10/04/19 09:30 Chloride IV Infused Q12H MICHAEL Infusion Protocol Lactulose 30 gm 10/04/19 09:00 10/04/19 08:33 Constulose PO 30 gm QID MICHAEL Administration Levothyroxine Sodi um 125 mcg 10/04/19 09:00 10/04/19 08:25 Synthroid PO 125 mcg DAILY MICHAEL Administration Pantoprazole Sodiu m 40 mg 10/04/19 09:00 10/04/19 08:25 Protonix PO 40 mg DAILY MICHAEL Administration Quetiapine Fumarat e 50 mg 10/04/19 09:00 10/04/19 08:24 Seroquel PO 50 mg BID MICHAEL Administration PFSH NPU PFSH: Medical History Bilateral pubic rami fractures Closed right femoral fracture Hepatic encephalopathy Increase lactulose to 4 times daily, or titrate to 2-3 loose bowel movements per day History of breast cancer History of esophageal varices Hemoglobin stable 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 She has never been hospitalized or diagnosed with a formal psychiatric disorder. Mental Status Exam MSE Comments: This is an 84-year-old female with a history of mild dementia and increasing irascibility. She looks to have been well cared for but is quite paranoid about her family. When I asked to speak to them the patient said, Don't let them tell you any lies. She denies hallucinations at this point, although I suspect her report may not be completely accurate. Mood is irritable and affect is appropriate to her mood. I found no disintegration of thinking or active hallucinations today. However she was very suspicious of her family and did not really want to talk to me. Thought processes are integrated and free of racing, blocking or looseness of association. Cognitive functions are mildly impaired. Judgment and insight more so. There is no suicidal or homicidal ideation, plan or intent. Behavior: Patient Behavior: Angry, Demanding, Irritable and Resistive to Care Attitude Description: Guarded Vitals/I&O/Wt Last Vital Signs Temp 97.6 F 10/04/19 11:46 Pulse 63 10/04/19 11:46 Resp 20 H 10/04/19 11:46 BP 174/81 10/04/19 11:46 Pulse Ox 94 10/04/19 11:46 10/03/19 10/04/19 10/04/19 23:59 07:59 15:59 Intake Total 750 220 Output Total 1000 Balance -250 220 Weight last 48 hrs Weight 185 lb Data NPU Micro: Micro: Microbiology 10/04/19 01:23 Blood Culture - Pr eliminary Blood SPECIMEN [facility] 10/04/19 01:23 Blood Culture - Pr eliminary Blood SPECIMEN [facility] Microbiology 10/04/19 01:23 Blood Blood Culture - Preliminary SPECIMEN COLLECTED 10/04/19 01:23 Blood Blood Culture - Preliminary SPECIMEN COLLECTED A&P Additional A&P Information Assessment and plan (1) Altered mental status: (2) Physical deconditioning: (3) Liver lesion, right lobe: (4) 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 This patient has psychiatric symptoms arising from her dementia and what may be solely due to psychosis. However, the family's history is she is done very badly without it. However, the possibility of a major depressive disorder, which sometimes manifests similarly, should be investigated and addressed if need be. I have had some success with small doses (5 mg p.o. daily) of citalopram. This may be helpful. In terms of her basic psychiatric condition, compounded by medical and altered mental status conditions, transfer to a geriatric psychiatry unit would indeed provide a more appropriate level of treatment than can be had here. Acute on chronic neutropenia No fever or signs of sepsis, Cefepime for now This is most likely secondary to portal hypertension and hypersplenism, normal hemoglobin Attestations NPU Medical Necessity Statement*: This is a complex geropsychiatry patient. I anticipate 2 to 3 days additional midnights pending placement Time Spent in Patient Care: Greater than 35 minutes (>than 50% of time spent in counselling and/or direct pt care on unit). Time spent included patient evaluation and 2 consultations with daughter and . I also consulted with the patient's referring physician. Coding Level of Care Code Acute [employer] Dean for Shagufta Pizano
--- NOTE | 2019-10-04 19:41 | PM.PN ---
Subjective Subjective: Interval history: This morning during my visit she appears calm. Her daughter is at bedside. She denies any pain or discomfort, apart from chronic aches and pains in her back, knees, ankles. Vitals/I&O/Wt Last Vital Signs Temp 98.4 F 10/04/19 15:43 Pulse 59 L 10/04/19 15:43 Resp 16 10/04/19 15:43 BP 177/84 10/04/19 15:43 Pulse Ox 94 10/04/19 15:43 10/04/19 10/04/19 10/04/19 06:59 14:59 22:59 Intake Total 750 / 750 340 / 340 Output Total 1000 / 1000 650 / 650 Balance -250 / -250 340 / 340 -650 / -310 Weight last 48 hrs Weight 83.915 kg Physical Exam Const: COMMON NORMALS: no apparent distress; negative for oriented x3 (Oriented to being in the hospital, does not remember the year.) HENMT: COMMON NORMALS: oropharynx normal Neck/C-Spine: COMMON NORMALS: no JVD Resp: COMMON NORMALS: normal respiratory effort and clear to auscultation bilaterally AUSCULTATION: clear to auscultation bilaterally Cardio: COMMON NORMALS: no JVD, regular rhythm, S1 normal heart sound, S2 normal heart sound and no murmurs RHYTHM: regular rhythm HEART SOUNDS: S1 normal and S2 normal GI: COMMON NORMALS: normal to inspection, nondistended, normoactive bowel sounds, soft to palpation and non-tender PALPATION: Yes soft Extremity: COMMON NORMALS: no joint enlargement and no pedal edema Neuro: COMMON NORMALS: moves all extremities; negative for oriented x3 (Oriented to being in the hospital, does not remember the year.) Skin: COMMON NORMALS: no rashes or lesions noted GENERAL SKIN EXAM: no rashes or lesions noted Data : 10/04/19 09:53 10/03/19 22:28 Micro: Microbiology 10/04/19 01:23 Blood Culture - Preliminary Blood SPECIMEN COLLECTED 10/04/19 01:23 Blood Culture - Preliminary Blood SPECIMEN COLLECTED A&P Assessment and plan (1) Altered mental status: Does not appear to have acute encephalopathy. Appears to have fluctuating mental status due to intermittent psychosis due to chronic underlying dementia which appears may have been progressing recently. Neutropenia was noted on presentation, however, without finding suspicious for acute infection on work-up so far. Her neutropenia actually improved today. With history of low cirrhosis, although does not appear to be contributing at this time with normal ammonia. Due to behavioral disturbance, with irritable, disagreeable, and sometimes hostile behavior per family are having a difficult time caring for her at home with her elderly and daughter who is wheelchair but with chronic disability. Appreciate psychiatric assessment and recommendations. At this time continue Seroquel, and add low-dose (5 mg) as citalopram. If neutropenia is worsening, and behavioral been stable, consider weaning down Seroquel to lowest effective dose. Discussed with her discharge planning regarding arrangements for admission to geriatric psychiatric facility for up additional medical management of intermittent psychosis with underlying dementia. Status: Acute Qualifiers: Altered mental status type: unspecified Qualified Code(s): R41.82 - Altered mental status, unspecified Code(s): R41.82 - Altered mental status, unspecified (2) Liver lesion, right lobe: Status: Acute Code(s): K76.9 - Liver disease, unspecified (3) 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: Continue lactulose, rifaximin. Repeat lactulose as needed to maintain 2-3 soft bowel movements per day. Status: Acute Code(s): K75.81 - Nonalcoholic steatohepatitis (FLOYD); K74.60 - Unspecified cirrhosis of liver (4) Physical deconditioning: Status: Acute Code(s): R53.81 - Other malaise (5) Pancytopenia: Chronic pancytopenia with worsening of neutropenia, with ANC 800 on presentation. Currently improved up to 1000. She remains afebrile, no symptoms of infection or evidence on proceeding work-up. Discontinue cefepime. Recheck blood counts, monitor for any symptoms of developing infection. Concern whether Seroquel may be contributing to her neutropenia, however, she has done poorly when weaned off of it. If behavioral issues improved somewhat with SSRI, may consider weaning down Seroquel dose somewhat to the lowest effective. Status: Acute Code(s): D61.818 - Other pancytopenia Attestations Medical Necessity Statement*: Continue admission for assessment management of worsening behavioral disturbance and psychosis with underlying dementia in the setting of chronic pancytopenia, liver cirrhosis with recurrent hepatic encephalopathy. Coding Level of Care Code Acute Equipment Maintenance Supervisor for Shagufta Fwd Diagnoses Altered mental status R41.82 Altered mental status type: unspecified Liver lesion, right lobe K76.9 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 K75.81; K74.60 Physical deconditioning R53.81 Pancytopenia D61.818
[2019-10-04] MEDS: donepezil 5 MG Tablet 10 MG PO (20:56)
[2019-10-04] MEDS: citalopram 20 mg Tablet 5 MG PO (21:01)
[2019-10-05] VITALS: BP 134/76; PULSE 74; RESP 19; TEMP 36.8; O2SAT 94
[2019-10-05 04:00] VITALS: BP 132/74; PULSE 74; RESP 18; TEMP 36.8; O2SAT 94
[2019-10-05 05:55] LABS: Basophils % 0.6 %; Eosinophils # 0.1 10^3/uL (0.0-0.8); Eosinophils % 6.9 %; Hematocrit 34.4 % (37.0-47.0); Hemoglobin 11.2 g/dL (11.5-15.3); Lymphocytes # 0.5 10^3/uL (0.8-4.8); Mean Corpuscular HGB Conc 32.6 g/dL (30.0-36.0); Mean Corpuscular Hemoglobin 30.4 pg (28.0-34.0); Mean Corpuscular Volume 93.5 fL (81-99); Mean Platelet Volume 11.9 fL (7.4-10.4); Monocytes # 0.2 10^3/uL (0.2-0.9); Monocytes % 12.7 %; Neutrophils # 0.9 10^3/uL (1.8-7.7); Neutrophils % 53.8 %; Nucleated Red Blood Cells % 0 %; Platelet Count 47 10^3/cmm (130-400); Red Blood Count 3.68 10^6/uL (4.1-5.3); Red Cell Distribution Width 14.6 % (12.1-15.1); White Blood Count 1.7 10^3/uL (4.0-10.0)
[2019-10-05 07:46] VITALS: BP 174/89; PULSE 64; RESP 16; TEMP 37.1; O2SAT 96
[2019-10-05] MEDS: citalopram 20 mg Tablet 5 MG PO (07:51)
[2019-10-05] MEDS: pantoprazole DR 40 mg Tablet PO (07:56)
[2019-10-05] MEDS: levothyroxine 125 mcg Tablet PO (07:56)
[2019-10-05] MEDS: quetiapine 25 mg Tablet 50 MG PO ×2 (07:57→17:40)
[2019-10-05] MEDS: lactulose oral liq 20 gm/30 mL UDC 30 GM PO ×4 (08:00→21:44)
[2019-10-05 11:30] VITALS: BP 167/82; PULSE 63; RESP 16; TEMP 37.2; O2SAT 94
[2019-10-05 15:41] VITALS: BP 165/88; PULSE 71; RESP 16; TEMP 36.4; O2SAT 94
--- NOTE | 2019-10-05 17:18 | PM.PN ---
Subjective Subjective: Interval history: Symptomatically improving. In better spirits today. Declined placement by [facility]. Since patient appears to be responding to current rx, family wishes to take her home with close outpatient follow up. Medications: Reviewed: Yes Vitals/I&O/Wt Last Vital Signs Temp 97.6 F 10/05/19 15:41 Pulse 71 10/05/19 15:41 Resp 16 10/05/19 15:41 BP 165/88 10/05/19 15:41 Pulse Ox 94 10/05/19 15:41 10/05/19 10/05/19 10/05/19 06:59 14:59 22:59 Intake Total 480 / 480 Output Total 700 / 1500 550 / 550 Balance -700 / -1160 -70 / -70 Weight last 48 hrs Weight 83.915 kg Physical Exam Narrative: EXAM NARRATIVE: GEN: Awake, alert and oriented, no acute distress CVS: S1S2 N RS: CTA B/L Abd: Soft, nt/nd , bs+ AIRCRAFT CAPTAIN: no focal neuro deficits Data : 10/05/19 05:32 10/03/19 22:28 Micro: Microbiology 10/04/19 01:23 Blood Culture - Preliminary Blood NEGATIVE TO DATE 10/04/19 01:23 Blood Culture - Preliminary Blood NEGATIVE TO DATE A&P Assessment and plan (1) Altered mental status: without finding suspicious for acute infection on work-up so far. Her neutropenia actually improved. Due to behavioral disturbance, with irritable, disagreeable, and sometimes hostile behavior per family are having a difficult time caring for her at home with her elderly and daughter who is wheelchair but with chronic disability. [facility], family no wishes to take her home after continued improvement with addition of citalopram. Appreciate psychiatric assessment and recommendations. At this time continue Seroquel, and add low-dose (5 mg) as citalopram. Status: Acute Qualifiers: Altered mental status type: unspecified Qualified Code(s): R41.82 - Altered mental status, unspecified Code(s): R41.82 - Altered mental status, unspecified (2) Liver lesion, right lobe: Status: Acute Code(s): K76.9 - Liver disease, unspecified (3) 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: Continue lactulose, rifaximin. Repeat lactulose as needed to maintain 2-3 soft bowel movements per day. Status: Acute Code(s): K75.81 - Nonalcoholic steatohepatitis (FLOYD); K74.60 - Unspecified cirrhosis of liver (4) Physical deconditioning: Status: Acute Code(s): R53.81 - Other malaise (5) Pancytopenia: Chronic pancytopenia with worsening of neutropenia, with ANC 800 on presentation. Currently improved up to 1000. She remains afebrile, no symptoms of infection or evidence on proceeding work-up. Concern whether Seroquel may be contributing to her neutropenia, however, she has done poorly when weaned off of it. If behavioral issues improved somewhat with SSRI, may consider weaning down Seroquel dose somewhat to the lowest effective. Status: Acute Code(s): D61.818 - Other pancytopenia Additional A&P Information Regular diet Full code Attestations Medical Necessity Statement*: continued assessment for titration of psych medications Coding Level of Care Code Acute Home Paraprofessional for g Fwd Diagnoses Altered mental status R41.82 Altered mental status type: unspecified Liver lesion, right lobe K76.9 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 K75.81; K74.60 Physical deconditioning R53.81 Pancytopenia D61.818
[2019-10-05 20:00] VITALS: BP 182/90; PULSE 70; RESP 18; TEMP 36.6; O2SAT 93
[2019-10-05] MEDS: donepezil 5 MG Tablet 10 MG PO (21:44)
[2019-10-06] VITALS (7 sets, daily range): BP systolic 101–165; BP diastolic 66–93; PULSE 79–100; RESP 18; TEMP 36.4–37.1; O2SAT 93–95
[2019-10-06 06:09] LABS: Basophils % 1.2 %; Eosinophils # 0.2 10^3/uL (0.0-0.8); Eosinophils % 5.8 %; Hematocrit 38.4 % (37.0-47.0); Hemoglobin 12.5 g/dL (11.5-15.3); Lymphocytes # 0.6 10^3/uL (0.8-4.8); Lymphocytes % 22.5 %; Mean Corpuscular HGB Conc 32.6 g/dL (30.0-36.0); Mean Corpuscular Hemoglobin 30.8 pg (28.0-34.0); Mean Corpuscular Volume 94.6 fL (81-99); Monocytes # 0.2 10^3/uL (0.2-0.9); Monocytes % 9.3 %; Neutrophils # 1.6 10^3/uL (1.8-7.7); Neutrophils % 60.8 %; Nucleated Red Blood Cells % 0 %; Platelet Count 54 10^3/cmm (130-400); Red Blood Count 4.06 10^6/uL (4.1-5.3); Red Cell Distribution Width 14.3 % (12.1-15.1); White Blood Count 2.6 10^3/uL (4.0-10.0)
[2019-10-06 06:22] LABS: Alanine Aminotransferase 17 U/L (0-33); Albumin Level 3.8 g/dL (3.5-5.2); Alkaline Phosphatase 93 IU/L (35-105); Anion Gap 17.4 (5-19); Aspartate Amino Transferase 31 U/L (0-32); Blood Urea Nitrogen 10 mg/dL (8-23); Calcium 9.4 mg/dL (8.5-10.5); Carbon Dioxide 21 mmol/L (22-29); Chloride 108 mmol/L (98-107); Globulin 2.7 g/dL (1.3-4.6); Glucose 125 mg/dL (65-115); Osmolality Calculated 293 mOsm/kg (285-295); Potassium 3.4 mmol/L (3.5-5.1); Sodium 143 mmol/L (136-145); Total Bilirubin 1.3 mg/dL (0.15-1.2); Total Protein 6.5 g/dL (6.6-8.7)
[2019-10-06] MEDS: levothyroxine 125 mcg Tablet PO (08:03)
[2019-10-06] MEDS: pantoprazole DR 40 mg Tablet PO (08:03)
[2019-10-06] MEDS: citalopram 20 mg Tablet 5 MG PO (08:04)
[2019-10-06] MEDS: quetiapine 25 mg Tablet 50 MG PO ×2 (08:05→17:22)
--- NOTE | 2019-10-06 14:11 | PC.CHAP ---
Pastoral Care Encounter/Spiritual Assessment Type of Contact [] Declined manager of software development visit [] Patient/Family/Request visit [] Outpatient visit [] Follow-up visit [] Physician referral [] Code/Alert [X] Routine visit [] Staff referral [] Actively dying [] Patient sleeping [] Family support [] [] Out of room [] Palliative care [] [] Receiving care in room [] Pre-surgical visit [] Trauma [] Long length of stay [] ICU visit [] Other: Relational/Emotional Strength [] Patient feels connected with others/family/visitors/staff [] Distress [] Loneliness/isolation [] Abandonment Spirituality of Patient [] Person of Adriane [] Attends Synagogue of their Adriane [] Believes in Prayer [] Reads Bible or Anabaptism materials [] There are Spiritual issues to be addressed Taxicab Dispatcher Interventions [] Prayer [] Active listening [] Non-anxious presence [] Spiritual/emotional support [] Crisis/trauma care [] Spiritual counseling [] Bereavement support [] Provided bereavement packet [] Provided Bible/devotional materials [] Provided toy/stuffed animal, coloring book to patient or family member [] Provided Communion [] Anointing/Ilion [] Salvation [] Completed spiritual assessment [] Other: Impact on Illness or Injury [] Angry [] Fearful [] Anxious [] Often cries [] Exhaustion [] Unable to work [] Unable to attend cheondoism [] Unable to walk/stand [] Unable to read [] Unable to drive [] Unable to eat/drink [] Unable to sleep [] Unable to be with family [] Patient intubated [] Other: Summary BEING DISCHARGED Time spent with patient
--- NOTE | 2019-10-06 14:16 | P.PN_ITS ---
Subjective NPU Subjective: Interval history: I visited with the family on the patient today. The patient has episodes of increased irritability and agitation. Dr. Gibson asked me what we might do pharmacologically now that the patient's ANC is improved. I rummaged through the [facility] literature on geriatric agitation. Depakote has been found helpful in some cases but is not a good choice with the patient's liver problems. There is no silver bullet for geriatric agitation that does not carry with it a significant risk. Benzodiazepines bring with them confusion and higher risk of falls. Dr. Gibson and I independently concluded that the best approach would be to push her quetiapine from 50 mg to 75 mg p.o. twice daily. I explained this to the patient's and daughter. They understood and agreed. Medications: Reviewed: Yes Medication Review Details: Current Medications Citalopram Hydrobromide (Celexa) 5 mg PO DAILY [facility] Last Admin: 10/06/19 08:04 Dose: 5 mg Documented by: Donepezil HCl (Aricept) 10 mg PO BEDTIME [facility] Last Admin: 10/05/19 21:44 Dose: 10 mg Documented by: Haloperidol Lactate (Haldol Inj) 1 mg IM Q4H PRN PRN Reason: AGITATION Lactulose (Constulose) 30 gm PO QID [facility] Last Admin: 10/06/19 12:03 Dose: Not Given Documented by: Levothyroxine Sodium (Synthroid) 125 mcg PO DAILY [facility] Last Admin: 10/06/19 08:03 Dose: 125 mcg Documented by: Pantoprazole Sodium (Protonix) 40 mg PO DAILY [facility] Last Admin: 10/06/19 08:03 Dose: 40 mg Documented by: Quetiapine Fumarate (Seroquel) 50 mg PO BID [facility] Last Admin: 10/06/19 08:05 Dose: 50 mg Documented by: Mental Status Exam MSE Comments: This is an 84-year-old female with a history of mild dementia and episodic agitation. She is well cared for but is quite paranoid about her family. When I asked to speak to them the patient said, you do not need to talk to them. There is nothing wrong with me. She is reported to be having well-defined visual hallucinations. Mood is irritable and affect is appropriate to her mood. She was very suspicious of her family and did not really want to talk to me. Thought processes are integrated and free of racing, blocking or looseness of association. Cognitive functions are mildly impaired. Judgment and insight more so. There is no suicidal or homicidal ideation, plan or intent. Vitals/I&O/Wt Last Vital Signs Temp 98.1 F 10/06/19 11:04 Pulse 80 10/06/19 11:04 Resp 18 10/06/19 11:04 BP 109/68 10/06/19 11:04 Pulse Ox 94 10/06/19 11:04 10/05/19 10/06/19 10/06/19 23:59 07:59 15:59 Intake Total 300 480 Output Total 200 350 Balance 100 -350 480 Data NPU : 10/06/19 06:01 10/06/19 06:01 A&P Assessment and plan (1) Altered mental status: The patient's mental status shifts have been the feel of delirium. There are well-defined visual hallucinations are characteristic. The things that would normally be directly targeted delirium are mostly precluded by her clinical condition. And so we will gingerly push the quetiapine. Status: Acute Qualifiers: Altered mental status type: unspecified Qualified Code(s): R41.82 - Altered mental status, unspecified Code(s): R41.82 - Altered mental status, unspecified Attestations NPU Medical Necessity Statement*: This is an unstable patient who has not been accepted for geropsychiatry placement. Coding Level of Care Code Acute Stock Transfer Clerk for dorothea Fwtoby Diagnoses Altered mental status R41.82 Altered mental status type: unspecified
--- NOTE | 2019-10-06 19:48 | P.PN_ITS ---
Subjective Subjective: Interval history: Per patient's at bedside, though patient had a good day yesterday and was planned for discharge to home today, she started experiencing some paranoia again today. Evaluated again by Dr. Joseph, decision was made to increase seroquel to 75mg BID after discussion of risks/benefits. Neutropenia resolved, Anc at 1.6 Medications: Reviewed: Yes Vitals/I&O/Wt Last Vital Signs Temp 98.2 F 10/06/19 15:52 Pulse 87 10/06/19 15:52 Resp 18 10/06/19 15:52 BP 116/72 10/06/19 15:52 Pulse Ox 95 10/06/19 15:52 10/06/19 10/06/19 10/06/19 06:59 14:59 22:59 Intake Total 480 / 480 240 / 720 Output Total 350 / 1100 Balance -350 / -320 480 / 480 240 / 720 Physical Exam Narrative: EXAM NARRATIVE: GEN: Awake, alert , tearful as she wants to return home CVS: S1S2 N RS: CTA B/L Abd: Soft, nt/nd , bs+ KETTLE GIRL: no focal neuro deficits Data : 10/06/19 06:01 10/07/19 05:45 A&P Assessment and plan (1) Physical deconditioning: Status: Acute Code(s): R53.81 - Other malaise (2) Pancytopenia: Chronic pancytopenia with worsening of neutropenia, with ANC 800 on pre sentation. Currently improved up to 1000. She remains afebrile, no symptoms of infection or evidence on proceeding work-up. Concern whether Seroquel may be contributing to her neutropenia, however, she has done poorly when weaned off of it. If behavioral issues improved somewhat with SSRI, may consider weaning down Seroquel dose somewhat to the lowest effective. Status: Acute Code(s): D61.818 - Other pancytopenia (3) 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: Continue lactulose, rifaximin. Repeat lactulose as needed to maintain 2-3 soft bowel movements per day. Status: Acute Code(s): K75.81 - Nonalcoholic steatohepatitis (FLOYD); K74.60 - Unspecified cirrhosis of liver (4) Delirium: Status: Acute Code(s): R41.0 - Disorientation, unspecified (5) Altered mental status: Status: Acute Qualifiers: Altered mental status type: unspecified Qualified Code(s): R41.82 - Altered mental status, unspecified Code(s): R41.82 - Altered mental status, unspecified (6) Liver lesion, right lobe: Status: Acute Code(s): K76.9 - Liver disease, unspecified Additional A&P Information 1. Delirium, hyperactive Due to behavioral disturbance, with irritable, disagreeable, and sometimes hostile behavior per family are having a difficult time caring for her at home with her elderly and daughter who is wheelchair but with chronic disability. [facility], family now wishes to take her home after improvement with addition of citalopram. Appreciate psychiatric assessment and recommendations. While initially improved with addition of citalopram, today noted paranoid behavior again, though not as severe as upon admission. In this setting, after discussion with Dr. Joseph and lack of availability of other options without similar side effects, it was decided after discussion with family to proceed with increasing dose of seroquel to 75mg BID. While seroquel could be contributing to pancytopenia, doubt that improvement over one day could be attributed to reducing dose of seroquel. 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 This will be monitored closely as an outpatient per discussion with family. 2. Pancytopenia, improving neutropenia, now ANC 1.6. Does not need neutropenic precautions. No current signs or symptoms of infection Attestations Medical Necessity Statement*: monitoring behavior with adjustment in medications Coding Level of Care Code Acute Business Change Manager for [facility] Diagnoses Physical deconditioning R53.81 Pancytopenia D61.818 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 K75.81; K74.60 Delirium R41.0 Altered mental status R41.82 Altered mental status type: unspecified Liver lesion, right lobe K76.9
[2019-10-06] MEDS: donepezil 5 MG Tablet 10 MG PO (21:56)
[2019-10-07 04:00] VITALS: BP 132/78; PULSE 75; RESP 18; TEMP 36.7; O2SAT 94
[2019-10-07 06:31] LABS: Alanine Aminotransferase 13 U/L (0-33); Albumin Level 3.6 g/dL (3.5-5.2); Alkaline Phosphatase 88 IU/L (35-105); Anion Gap 11.8 (5-19); Aspartate Amino Transferase 21 U/L (0-32); Blood Urea Nitrogen 11 mg/dL (8-23); Calcium 9.2 mg/dL (8.5-10.5); Carbon Dioxide 27 mmol/L (22-29); Chloride 109 mmol/L (98-107); Globulin 2.6 g/dL (1.3-4.6); Glucose 111 mg/dL (65-115); Osmolality Calculated 295 mOsm/kg (285-295); Potassium 3.8 mmol/L (3.5-5.1); Sodium 144 mmol/L (136-145); Total Bilirubin 1.2 mg/dL (0.15-1.2); Total Protein 6.2 g/dL (6.6-8.7)
[2019-10-07 07:03] VITALS: BP 124/76; PULSE 79; RESP 18; TEMP 36.7; O2SAT 92
[2019-10-07] MEDS: lactulose oral liq 20 gm/30 mL UDC 30 GM PO (09:26)
[2019-10-07] MEDS: levothyroxine 125 mcg Tablet PO (09:29)
[2019-10-07] MEDS: citalopram 20 mg Tablet 5 MG PO (09:30)
[2019-10-07] MEDS: pantoprazole DR 40 mg Tablet PO (09:30)
[2019-10-07] MEDS: quetiapine 25 mg Tablet 50 MG PO (09:32)
[2019-10-07 12:00] VITALS: BP 150/94; PULSE 90; RESP 18; TEMP 37.4; O2SAT 94
--- NOTE | 2019-10-07 13:41 | PM.DCS ---
Discharge Providers Date of Admission: 10/04/19 15:01 Date of Discharge: October 07, 2019 Attending Provider at Admission: Obdulio Munoz MD Attending Provider at Discharge: Edwin Villafana MD Primary Care Provider: Jef Montesinos DO Diagnoses at Discharge Discharge Diagnosis (1) Altered mental status: Status: Acute Qualifiers: Altered mental status type: unspecified Qualified Code(s): R41.82 - Altered mental status, unspecified Reason for Visit Reason for Visit: Reason For Visit: UTI/CONFUSED Hospital Course Discharge Summary: Rachelle Apodaca is a 84 year old female who has a history of nonalcoholic steatohepatitis, liver cirrhosis, dementia, hepatic encephalopathy, was recently discharged from the hospital after being managed for acute on chronic confusion, she was treated with antibiotics for UTI, urine cultures were negative, her lactulose dose was increased to 4 times daily and she was discharged on Macrobid. She was brought in today by the family for chief complaint of not being able to take care of her, acute on chronic confusion and generalized weakness. Diagnostics in ER revealed BMP but neutropenia with normal urinalysis. Infectious cause of neutropenia was ruled out. It was thought neutropenia is most likely because of Seroquel which had recently been changed as per her urologist in [place] so psychiatry was consulted regarding acute psychosis with delirium and neutropenia while being on Seroquel. Other causes of altered mental status like hepatic encephalopathy was ruled out with a normal ammonia levels on admission. Patient was continued on home dose of lactulose. As per psychiatric recommendation below Seroquel was decreased and citalopram was added to patient's current regimen. After decreasing the dose of Seroquel patient had 1 more event of acute psychosis and with discussion with the family Seroquel was titrated up a little bit again. Patient's neutropenia had resolved and has remained stable. Patient's mentation also seem to improve on current treatment regimen. Given difficult living conditions safe discharge planning will discuss with the family and placement at [facility] was tried but patient was denied at the [facility]. Further placement at different [facility] were discussed with the family to which they denied. Patient and patient's family was also given an option of home health services which was also denied. Family decided to take patient home so patient is been discharged in hemodynamically stable condition, being afebrile, resolved neutropenia and resolving leukopenia. Patient has been asked to follow-up with her primary care provider and Dr. Joseph as an outpatient within next 2 weeks. 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: no focal neuro deficits Const: COMMON NORMALS: no apparent distress; negative for oriented x3 (Oriented to being in the hospital, does not remember the year.) HENMT: COMMON NORMALS: oropharynx normal Neck/C-Spine: COMMON NORMALS: no JVD Resp: COMMON NORMALS: normal respiratory effort and clear to auscultation bilaterally AUSCULTATION: clear to auscultation bilaterally Cardio: COMMON NORMALS: no JVD, regular rhythm, S1 normal heart sound, S2 normal heart sound and no murmurs RHYTHM: regular rhythm HEART SOUNDS: S1 normal and S2 normal GI: COMMON NORMALS: normal to inspection, nondistended, normoactive bowel sounds, soft to palpation and non-tender PALPATION: Yes soft Extremity: COMMON NORMALS: no joint enlargement and no pedal edema Neuro: COMMON NORMALS: moves all extremities; negative for oriented x3 (Oriented to being in the hospital, does not remember the year.) Skin: COMMON NORMALS: no rashes or lesions noted GENERAL SKIN EXAM: no rashes or lesions noted Discharge Data Data Completed and Pending: Completed Studies During Hospitalization Category Date Time Status CT head wo con* 7 0450 Urgent Cat Scan 10/03/19 23:04 Completed XR chest 1V danis ble 20440 Urgent Exams 10/03/19 23:04 Completed Pending at discharge Category Date Time Status Blood Culture Sta t Lab 10/04/19 01:23 Results Labs from last 24 hours 10/07/19 05:45 Sodium 144 Potassium 3.8 Chloride 109 H Carbon Dioxide 27 Anion Gap 11.8 BUN 11 Creatinine 0.7 Glucose 111 Calculated Osmolal ity 295 Calcium 9.2 Total Bilirubin 1.2 AST 21 ALT 13 Alkaline Phosphata se 88 Total Protein 6.2 L Albumin 3.6 Globulin 2.6 Vitals: Last Vital Signs Temp 99.3 F 10/07/19 12:00 Pulse 90 10/07/19 12:00 Resp 18 10/07/19 12:00 BP 150/94 03/15/20 12:00 Pulse Ox 94 10/07/19 12:00 Discharge Plan Discharge Patient Disposition: Home, Self-Care Condition: Stable Prescriptions: New quetiapine 25 mg Tablet 75 mg PO BID Qty: 30 RF: 0 citalopram 20 mg Tablet 5 mg PO DAILY Qty: 30 RF: 0 Continued donepezil 10 mg Tablet 10 mg PO BEDTIME RF: 0 nadolol 20 mg Tablet 20 mg PO DAILY RF: 0 pantoprazole [Protonix] 40 mg Tablet,Delayed Release (Dr/Ec) 40 mg PO DAILY RF: 0 levothyroxine 125 mcg Tablet 125 mcg PO DAILY RF: 0 Multiple Vitamins Tablet 1 tab PO DAILY RF: 0 ascorbic acid (vitamin C) [Vitamin C] 500 mg Tablet 500 mg PO DAILY RF: 0 furosemide [Lasix] 20 mg Tablet 20 mg PO DAILY PRN (Reason: Edema) RF: 0 Calcium 600 + D(3) 600-125 mg-unit Tablet 1 tab PO DAILY RF: 0 cranberry 15,000 mg PO DAILY PRN (Reason: UNKNOWN) RF: 0 lactulose 20 gram/30 mL solution 15 ml PO TID RF: 0 simvastatin 20 mg Tablet 20 mg PO QPM RF: 0 Discontinued mirtazapine 15 mg Tablet 15 mg PO BEDTIME RF: 0 memantine 10 mg Tablet 10 mg PO BID RF: 0 quetiapine [Seroquel] 50 mg Tablet 50 mg PO BID RF: 0 vitamin B complex [Super B-50 Complex] Capsule 1 cap PO DAILY RF: 0 nitrofurantoin monohyd/m-cryst 100 mg Capsule 100 mg PO BID Qty: 14 RF: 0 melatonin 5 mg Tablet 5 mg PO DAILY RF: 0 amoxicillin-pot clavulanate [Augmentin] 500-125 mg Tablet 1 tab PO BID RF: 0 Discharge Orders: Discharge Order (Routine); Ordered 10/07/19 Ordered By: Edwin Villafana Referrals: Jef Montesinos DO [Primary Care Provider] - (Call Tuesday and make an follow up appointment from the hospital with Dr. Montesinos in 1 week.) Jake Joseph [Physician] - 1 month (Call [facility] Tuesday and make a follow up appointment with a or counceler in 1 month to set up all your [facility] needs.) Discharge Diet: Regular Discharge Activity: Resume usual activity Patient Instructions: Quetiapine (By mouth), Citalopram (By mouth), Acute Delirium (DC), Altered Mental Status (GEN) Discharge Date/Time: 10/07/19 16:10 Discharge Attestations Time Spent in Discharge Care*: greater than 30 min Specific Discharge Activities: Specific discharge activities: educating patient and educating and/or supporting family/caregiver Status at Discharge: Cognitive status at discharge: cognitively intact, Behavioral status at discharge: cooperative, Functional status at discharge: uses cane/walker Overall status at discharge: patient is back to baseline Quality Metrics Clinical Quality Measures During this hospital stay, did patient experience: None Coding Level of Care Code 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
--- NOTE | 2019-10-07 14:16 | PC.SOCIAL ---
Pg 2 IMM Updated pt's on Pg 2 IMM. He verbally understands, no questions voiced. Provided pt & a copy & left on pt's bedside table. Signed, dated, & timed copy in chart.
[2019-10-07 15:24] VITALS: BP 131/80; PULSE 80; RESP 18; TEMP 37.2; O2SAT 94
== END 2019-10-07 16:10 | disposition home or self-care (01) | DRG 809 ==
LOC: ER 10-04 00:54 → MEDSURG 10-04 01:20
PROVIDERS: Internal Medicine; Student in an Organized Health Care Education/Training Program; Admitting Provider Internal Medicine; Emergency Provider Emergency Medicine; PCP Internal Medicine; Visit Provider Student in an Organized Health Care Education/Training Program
DX: D61.818 Other pancytopenia (principal); K76.6 Portal hypertension; R41.82 Altered mental status, unspecified; D70.9 Neutropenia, unspecified; F03.90 Unspecified dementia, unspecified severity, without behavioral disturbance, psychotic disturbance, mood disturbance, and anxiety; D73.1 Hypersplenism; K76.9 Liver disease, unspecified; K74.60 Unspecified cirrhosis of liver; K75.81 Nonalcoholic steatohepatitis (NASH); K59.00 Constipation, unspecified; Z88.8 Allergy status to other drugs, medicaments and biological substances; Z79.899 Other long term (current) drug therapy
CPT/HCPCS: 12345; 36415; 70450; 71045; 80053; 81003; 82140; 85025; 87040; 93005; 99283; G0378; J0692; J7050

== ENCOUNTER 2019-10-08 16:03 | Emergency (ER) | payer MEDICARE, OTHER, SELFPAY ==
[2019-10-08 16:06] VITALS: BMI 26.6
[2019-10-08 16:11] VITALS: BP 143/87; PULSE 60; RESP 16; TEMP 36.4; O2SAT 96
--- NOTE | 2019-10-08 16:23 | ED_ITS ---
HPI - Psych General: Chief Complaint: Psychiatric Symptoms Stated Complaint: SI Time Seen by Provider: 10/08/19 16:22 PFSH ED PFSH: Social History Smoking and tobacco status: never smoked Alcohol intake: never Discharge Plan Discharge Prescriptions: No Action donepezil 10 mg Tablet 10 mg PO BEDTIME RF: 0 nadolol 20 mg Tablet 20 mg PO DAILY RF: 0 pantoprazole [Protonix] 40 mg Tablet,Delayed Release (Dr/Ec) 40 mg PO DAILY RF: 0 levothyroxine 125 mcg Tablet 125 mcg PO DAILY RF: 0 Multiple Vitamins Tablet 1 tab PO DAILY RF: 0 ascorbic acid (vitamin C) [Vitamin C] 500 mg Tablet 500 mg PO DAILY RF: 0 furosemide [Lasix] 20 mg Tablet 20 mg PO DAILY PRN (Reason: Edema) RF: 0 Calcium 600 + D(3) 600-125 mg-unit Tablet 1 tab PO DAILY RF: 0 cranberry 15,000 mg PO DAILY PRN (Reason: UNKNOWN) RF: 0 lactulose 20 gram/30 mL solution 15 ml PO TID RF: 0 simvastatin 20 mg Tablet 20 mg PO QPM RF: 0 quetiapine 25 mg Tablet 75 mg PO BID Qty: 30 RF: 0 citalopram 20 mg Tablet 5 mg PO DAILY Qty: 30 RF: 0 Coding Level of Care Code ED Gantry Crane Operator for [facility] Harinder
--- NOTE | 2019-10-08 16:48 | ECG_ITS ---
Measurements Intervals [place] Rate: 61 P: 65 NM: 244 QRS: -31 QRSD: 89 T: -9 QT: 458 QTc: 462 SINUS RHYTHM WITH FIRST DEGREE AV BLOCK LOW QRS VOLTAGE IN PRECORDIAL LEADS POSSIBLE RIGHT VENTRICULAR CONDUCTION DELAY POSSIBLE ANTERIOR MYOCARDIAL INFARCTION , OF INDETERMINATE AGE INFERIOR MYOCARDIAL INFARCTION , PROBABLY OLD MODERATE T-WAVE ABNORMALITY, CONSIDER LATERAL ISCHEMIA Compared to ECG 10/04/2019 00:37:41 Low QRS voltage now present Sinus bradycardia no longer present Myocardial infarct finding still present T-wave abnormality still present Possible ischemia still present Electronically Signed On 10-09-2019 13:22:41 CDT by Britni Trujillo M.D. [email or web address]
[2019-10-08 17:28] LABS: Basophils % 1.1 %; Eosinophils # 0.2 10^3/uL (0.0-0.8); Eosinophils % 8.5 %; Hematocrit 38.6 % (37.0-47.0); Hemoglobin 12.3 g/dL (11.5-15.3); Lymphocytes # 0.5 10^3/uL (0.8-4.8); Lymphocytes % 19.1 %; Mean Corpuscular HGB Conc 31.9 g/dL (30.0-36.0); Mean Corpuscular Hemoglobin 30.7 pg (28.0-34.0); Mean Corpuscular Volume 96.3 fL (81-99); Monocytes # 0.3 10^3/uL (0.2-0.9); Monocytes % 9.6 %; Neutrophils # 1.7 10^3/uL (1.8-7.7); Neutrophils % 61.3 %; Nucleated Red Blood Cells % 0 %; Platelet Count 55 10^3/cmm (130-400); Red Blood Count 4.01 10^6/uL (4.1-5.3); Red Cell Distribution Width 14.6 % (12.1-15.1); White Blood Count 2.8 10^3/uL (4.0-10.0)
[2019-10-08 17:44] LABS: Alanine Aminotransferase 19 U/L (0-33); Alkaline Phosphatase 94 IU/L (35-105); Anion Gap 15.2 (5-19); Aspartate Amino Transferase 31 U/L (0-32); Blood Urea Nitrogen 15 mg/dL (8-23); Calcium 9.5 mg/dL (8.5-10.5); Carbon Dioxide 26 mmol/L (22-29); Chloride 107 mmol/L (98-107); Globulin 2.7 g/dL (1.3-4.6); Glucose 99 mg/dL (65-115); Osmolality Calculated 294 mOsm/kg (285-295); Potassium 4.2 mmol/L (3.5-5.1); Sodium 144 mmol/L (136-145); Total Bilirubin 1.6 mg/dL (0.15-1.2); Total Protein 6.7 g/dL (6.6-8.7)
[2019-10-08 17:50] LABS: Acetaminophen < 5.0 ug/mL (10-30); Alcohol Level < 10 mg/dL (0-10); Salicylate < 0.3 mg/dL (3-10)
[2019-10-08 18:09] LABS: Ammonia 21 umol/L (11-51)
[2019-10-08 18:22] LABS: Amphetamines Screen Urine Negative (Negative); Barbiturates Screen Urine Negative (Negative); Benzodiazepines Screen Urine Negative (Negative); Cocaine Screen Urine Negative (Negative); Opiate Screen Urine Negative (Negative); PCP Screen Urine Negative (Negative); THC Screen Urine Negative (Negative)
[2019-10-08] MEDS: LORazepam 2 mg/mL INJ 1 mL (18:55)
[2019-10-08] MEDS: haloperidol inj 5 mg/mL INJ 1 mL IM ×2 (18:55→20:51)
[2019-10-08] MEDS: haloperidol inj 5 mg/mL INJ 1 mL (19:34)
--- NOTE | 2019-10-08 19:37 | PC.NURSE ---
patient out of control for over an hour DR HERBERT IN ROOM AND ORDERS GIVEN, SECURITY CALLED, AND HELD DOWN BY TECs AND Nurses holding down patient, meds given
[2019-10-08] MEDS: LORazepam 2 mg/mL INJ 1 mL IM (21:13)
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
--- NOTE | 2019-10-08 23:04 | XR_ITS ---
WS: [id number] XR chest 1V portable [id number] REASON FOR EXAM: pysch FINDINGS: Prominence of the right hilum is seen slightly more accentuated than previous exam dated [facility] 2019. There is evidence of scoliosis. There is cardiomegaly with arteriosclerotic changes. There is no definite pneumonia, pleural effusion, pulmonary edema, no mass effect or pneumothorax. XR/XR chest 1V portable [id number] IMPRESSION: Prominence of the right hilum. Cardiomegaly with arteriosclerotic changes. Scoliosis A plate is seen just overriding a previous fracture of the clavicle on the left .
[2019-10-08 23:32] LABS: Free T4 Free Thyroxine 1.75 ng/dL (0.82-1.77); Thyroid Stimulating Hormone 0.59 uIU/mL (0.27-4.20)
[2019-10-09 00:08] LABS: Influenza A by IFA Negative (Negative); Influenza B by IFA Negative (Negative)
[2019-10-09 00:50] LABS: Add Urine Microscopic? NO
--- NOTE | 2019-10-09 00:52 | PC.NURSE ---
PT RESTING IN BED. BECOMES AGITATED WITH ANY STIMULI. PT HAS ATTEMPTED TO BITE STAFF AND HIT STAFF AT TIMES. RESPONDS WELL TO PRN HALDOL ET ATIVAN. REFUSES VITAL SIGNS.
[2019-10-09 00:54] LABS: Bilirubin Urine Neg (NEGATIVE); Blood Urine Neg (Negative); Glucose Urine UA Norm (Normal); Ketones Urine Negative (Negative); Leukocyte Esterase Urine Negative (Negative); Nitrate Urine Negative (Negative); Protein Urine Neg (Negative); Urine Appearance Clear (CLEAR); Urine Color Yellow (Yellow); Urobilinogen Urine Norm (Negative); pH Urine 5 (5-7)
[2019-10-09 02:47] VITALS: BP 137/64; PULSE 64; RESP 16; O2SAT 96
[2019-10-09 02:49] VITALS: BP 137/64; PULSE 64; RESP 16; O2SAT 96
--- NOTE | 2019-10-09 12:03 | DCPLANNER ---
salon/spa manager was asked to look for [facility] placement for patient. salon/spa manager called [facility], they had a bed was going to save bed and when tests came back need to fax records to [facility]. salon/spa manager informed nurse, charge nurse and ammunition officer that [facility] had a bed and was waiting for patient records to be sent.
== END 2019-10-09 03:46 ==
PROVIDERS: Physician Assistant; Emergency Provider Nurse Practitioner Family; PCP Internal Medicine
DX: R45.851 Suicidal ideations (principal); R41.82 Altered mental status, unspecified; R45.4 Irritability and anger; F22 Delusional disorders; F03.90 Unspecified dementia, unspecified severity, without behavioral disturbance, psychotic disturbance, mood disturbance, and anxiety
CPT/HCPCS: 12345; 36415; 71045; 80053; 80306; 80307; 81003; 82140; 84439; 84443; 85025; 87804; 93005; 96372; 99284; 99285; A9270; J1630; J2060

== ENCOUNTER 2019-11-10 13:56 | Emergency (ER) | payer MEDICARE, OTHER, SELFPAY ==
[2019-11-10] VITALS (7 sets, daily range): BP systolic 153–162; BP diastolic 84–87; PULSE 60–66; RESP 15–18; TEMP 37.1; O2SAT 93–95; BMI 28.1
--- NOTE | 2019-11-10 14:12 | W.ED.FALL ---
Documented by User: Renetta Abraham DO 11/13/19 18:18 HPI - Fall General: Chief Complaint: Fall Stated Complaint: PAIN ALL OVER S/P FALL Time Seen by Provider: 11/10/19 14:12 History of Present Illness: HPI Narrative: Pt states she fell while trying to get into the bed from her wheelchair, landed on concrete on her right side. C/o severe neck and back pain, left rib pain, bilat hip pain and righe shoulder pain. She thinks she just slipped. She was brought in by ems and is in a c collar MD complaint: fall Onset (ago): hour(s) (1) Fall from: wheelchair Fall witnessed: yes, by living facility staff Place fall occurred: skilled nursing/SNF Loss of consciousness: Unsure Prolonged down time: no Symptoms prior to fall: none Context: tripped/slipped Location of injury: head, neck, chest and back Severity: severe Severity scale (1-10): 10 Quality: sharp Associated symptoms-after fall: Reports chest pain, headache(s) and neck pain; Denies abdominal pain, numbness, short of breath or weakness Review of Systems General: Reports: 10 or more systems reviewed and unremarkable except in HPI and below Const: Denies: fever, chills or fatigue ENMT: Denies: throat pain Card: Reports: chest pain Resp: Denies: shortness of breath or productive cough GI: Denies: abdominal pain, nausea, vomiting, diarrhea, constipation or blood in stool : Denies: difficulty urinating Musc: Reports: neck pain, back pain, extremity pain, joint pain and limited range of motion Skin/Breast: Denies: rash Neuro: Reports: headache PFSH ED PFSH: Medical History Bilateral pubic rami fractures Closed right femoral fracture Hepatic encephalopathy Increase lactulose to 4 times daily, or titrate to 2-3 loose bowel movements per day History of breast cancer History of esophageal varices Hemoglobin stable 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 Thrombocytopenia Surgical History H/O knee surgery H/O mastectomy History of hip surgery Family History Daughter CAD (coronary artery disease) Other Diabetes Social History Smoking and tobacco status: never smoked Alcohol intake: never Physical Exam Const: COMMON NORMALS: oriented x3 GENERAL APPEARANCE: cooperative; not in distress HENMT: COMMON NORMALS: normocephalic HEAD & SCALP: normal to inspection and normocephalic MOUTH: oral and palatal mucosa normal and lip normal THROAT: posterior oropharynx normal and tonsils normal Neck/C-Spine: COMMON NORMALS: no meningeal signs; negative for full ROM GENERAL: Yes normal visual inspection and Yes trachea midline CERVICAL SPINE: No cervical ROM normal, Yes cervical ROM abnormal rotation to the left decreased and rotation to the right decreased, Yes pain with cervical ROM, Yes cervical spine tenderness diffuse and No step off deformity Chest: COMMONS NORMALS: negative for palpation of chest normal CHEST: Yes abnormal inspection of the chest (tender ant left inf chest) and No crepitus Resp: COMMON NORMALS: normal respiratory effort and clear to auscultation bilaterally EFFORT & INSPECTION: Yes able to speak in complete sentences and No respiratory distress AUSCULTATION: clear to auscultation bilaterally, no rales, no rhonchi and no wheezes Cardio: COMMON NORMALS: regular rate, regular rhythm, S1 normal heart sound, S2 normal heart sound and no murmurs RATE: regular rate RHYTHM: regular rhythm HEART SOUNDS: S1 normal and S2 normal PERIPHERAL PULSES: radial pulses present and dorsalis pedis pulses present GI: COMMON NORMALS: normal to inspection, nondistended, normoactive bowel sounds, soft to palpation and non-tender INSPECTION: Yes normal to inspection AUSCULTATION: Yes normoactive bowel sounds PALPATION: Yes soft, No tender, No guarding and No rigid RECTAL EXAM: deferred : COMMON NORMALS: Yes no CVA tenderness BLADDER/KIDNEY EXAM: Yes no CVA tenderness Back/Pelvis: COMMON NORMALS: no CVA tenderness Extremity: RIGHT UPPER EXTREMITY: Yes shoulder joint Right shoulder: Yes ROM (tender to movement of shoulder in any direction) RIGHT LOWER EXTREMITY: Yes hip joint Right hip: Yes palpation (tender to palpation right hip and with rom) and Yes lower leg Right lower leg: Yes palpation (tender to palpation tib fib distal, no deformity) OTHER: all distally neurovascularly intact Neuro: COMMON NORMALS: oriented x3, CN's II-XII intact bilaterally, moves all extremities and no focal motor deficits MENINGEAL SIGNS: Yes no meningeal signs Skin: COMMON NORMALS: no rashes or lesions noted GENERAL SKIN EXAM: no rashes or lesions noted Course Vital Signs: Vital signs: Vital Signs Temperature 98.7 F 11/10/19 14:03 Pulse Rate 66 11/10/19 17:46 Respiratory Rate 16 11/10/19 18:00 Blood Pressure 162/84 11/10/19 17:46 Pulse Oximetry 94 11/10/19 18:00 MDM - Fall MDM Narrative: Medical decision making narrative: All of the pts ct's and xrays are negaitve. She only stands to transfer at [facility] so we will see if she can stand without severe pain in her hips. If she can we will send her back. She is feeling much better overall and has good rom at neck without pain now. She is tolerating pos well. Pt tried to sit up and is screaming nicko of low pelvic pain, I will ct her pelvis. Dr Billings will f/u on ct Lab Data: Labs: Lab Results 11/10/19 11/10/19 Range/Units 15:30 15:30 WBC 4.1 (4.0-10.0) 10^3/ uL RBC 3.95 L (4.1-5.3) 10^6/u L Hgb 12.2 (11.5-15.3) g/dL Hct 37.8 (37.0-47.0) % MCV 95.7 (81-99) fL MCH 30.9 (28.0-34.0) pg MCHC 32.3 (30.0-36.0) g/dL RDW 15.5 H (12.1-15.1) % Plt Count 65 L (130-400) 10^3/c mm MPV 12.9 H (7.4-10.4) fL Neut % (Auto) 83.2 % Lymph % (Auto) 7.3 % Vigo % (Auto) 7.8 % Eos % (Auto) 0.2 % Baso % (Auto) 0.5 % Neut # (Auto) 3.4 (1.8-7.7) 10^3/u L Lymph # (Auto) 0.3 L (0.8-4.8) 10^3/u L Vigo # (Auto) 0.3 (0.2-0.9) 10^3/u L Eos # (Auto) 0.0 (0.0-0.8) 10^3/u L Baso # (Auto) 0.0 (0.0-0.1) 10^3/u L Nucleated RBC % (a uto) 0 % Nucleated RBCs # 0.0 /100WBC Sodium 140 (136-145) mmol/L Potassium 4.5 (3.5-5.1) mmol/L Chloride 106 (98-107) mmol/L Carbon Dioxide 24 (22-29) mmol/L Anion Gap 14.5 (5-19) BUN 17 (8-23) mg/dL Creatinine 0.8 (0.5-0.9) mg/dL Glucose 116 H (65-115) mg/dL Calculated Osmolal ity 287 (285-295) mOsm/k g Calcium 9.2 (8.5-10.5) mg/dL Total Bilirubin 2.6 H (0.15-1.2) mg/dL AST 27 (0-32) U/L ALT 14 (0-33) U/L Alkaline Phosphata se 83 (35-105) IU/L Total Protein 6.2 L (6.6-8.7) g/dL Albumin 3.9 (3.5-5.2) g/dL Globulin 2.3 (1.3-4.6) g/dL Imaging Data^: CT Head: Radiologist's impression: Ordering Provider/Ordering MD: Renetta Abraham DO Date of Service: 11/10/19 Procedure(s): CT head wo con* [id number] Accession Number(s): [id number] Report Number: [id number] PROCEDURE INFORMATION: Exam: CT Head Without Contrast Exam date and time: 11/10/2019 2:30 PM Age: 84 years old Clinical indication: Injury or trauma; Fall; Additional info: Trauma skilled nursing PT, PT fell out of bed. Pain all over TECHNIQUE: Imaging protocol: Computed tomography of the head without contrast. Axial, coronal and sagittal reformatted images were created and reviewed. Total DLP: 951.98 mGy-cm Radiation optimization: All CT scans at this facility use at least one of these dose optimization techniques: automated exposure control; mA and/or kV adjustment per patient size (includes targeted exams where dose is matched to clinical indication); or iterative reconstruction. COMPARISON: CT head wo con* [id number] 10/03/2019 11:45 PM FINDINGS: Brain: 3 mm rounded hyperdensity in the left high parietal lobe (series 2, image 52), similar to prior and therefore likely representing a small calcification. Patchy areas of hypoattenuation in the periventricular and subcortical white matter, consistent with chronic small vessel ischemic disease. No CT evidence of acute territorial infarction. No significant mass effect or midline shift. Basal cisterns patent. Ventricles: Prominence of the cortical sulci, cisterns and ventricular system, consistent with cerebral and cerebellar volume loss. Bones/joints: No acute osseous abnormality. Sinuses: Mild ethmoid and right maxillary sinus mucosal thickening. Mastoid air cells: Grossly unremarkable. Soft tissues: Grossly unremarkable. Vasculature: Calcific atherosclerotic disease in the cavernous internal carotid arteries, as well as the vertebro-basilar system. CT/CT head wo con* [id number] IMPRESSION: 1. 3 mm rounded hyperdensity in the left high parietal lobe, similar to prior and therefore likely representing a small calcification. A small unchanged cortical contusion cannot be definitively excluded. 2. Additional findings, as above. Radiation Dose CTDIVOL = (mGy): DLP = 951.98 (mGy-cm) Dictated By:Tonio Khan MD Signed By:Tonio Khan MDSigned Date/Time:11/10/19 1532 Xray Ortho: Radiologist's impression: Signed Patient: Rachelle Apodaca #: [id number] : 8Acct#:[id number] Age/Sex: 84 / FADM Date: 11/10/19 Loc: ERRoom/Bed: Attending Dr: Ordering Provider/Ordering MD: Renetta Abraham DO Date of Service: 11/10/19 Procedure(s): XR hip RT 2-3V wo/w pel* [id number] Accession Number(s): [id number] Report Number: [id number] PROCEDURE INFORMATION: Exam: XR Right Hip with Pelvis when Performed Exam date and time: 11/10/2019 3:03 PM Age: 84 years old Clinical indication: Injury or trauma; Fall; Initial encounter; Blunt trauma (contusions or hematomas); Right; Injury details: skilled nursing PT, PT fell out of bed pain all over; Prior surgery; Surgery date: 6+ months; Surgery type: Hip, knee, ankle TECHNIQUE: Imaging protocol: XR Right hip with pelvis when performed. Views: 2 or 3 views. COMPARISON: CR Hips Nik 5v wwo Pelvis* [id number] 01/23/2019 12:37 PM FINDINGS: Bones/joints: Unremarkable. No acute fracture. There is dynamic screw in place in the proximal right hip. The bones show anatomic alignment. A metallic plate and screws are seen in the lateral aspect of the mid shaft right femur. There is generalized osteopenia seen. No acute bony abnormality is seen. Soft tissues: Unremarkable. XR/XR hip RT 2-3V wo/w pel* [id number] IMPRESSION: Metallic orthopedic hardware is seen in the right hip and mid right femur. Negative for acute bony abnormality Dictated By:Adolfo Manuel Signed By:Barry Manuel Date/Time:11/10/19 1516 Other Xray: Radiologist's impression: Signed Patient: Rachelle Apodaca #: [id number] : 8Acct#:[id number] Age/Sex: 84 / FADM Date: 11/10/19 [facility] Dr: Ordering Provider/Ordering MD: Renetta Abraham DO Date of Service: 11/10/19 Procedure(s): XR hip LT 2-3V wo/w pel* [id number] Accession Number(s): [id number] Report Number: [id number] PROCEDURE INFORMATION: Exam: XR Left Hip with Pelvis when Performed Exam date and time: 11/10/2019 3:03 PM Age: 84 years old Clinical indication: Injury or trauma; Fall; Initial encounter; Blunt trauma (contusions or hematomas); Left; Hip TECHNIQUE: Imaging protocol: XR Left hip with pelvis when performed. Views: 2 or 3 views. COMPARISON: CR Hips Nik 5v wwo Pelvis* [id number] 01/23/2019 12:37 PM FINDINGS: Bones/joints: There is metallic dynamic plate and screws in the proximal right hip. The bones of show anatomic alignment. No acute bony abnormality is seen. No acute fracture. Soft tissues: Unremarkable. XR/XR hip LT 2-3V wo/w pel* [id number] IMPRESSION: Postsurgical hardware right hip No acute findings. Dictated By:Adolfo Manuel Signed By:Barry Manuel Date/Time:11/10/19 1523 DD/ 1522 Other Imaging: Radiologist's impression: [place] [address] CT Scan Report Signed Patient: Rachelle Apodaca #: [id number] : 8Acct#:[id number] Age/Sex: 84 / FADM Date: 11/10/19 Loc: ERRoom/Bed: Attending Dr: Ordering Provider/Ordering MD: Renetta Abraham DO Date of Service: 11/10/19 Procedure(s): CT cervical spin wo con* [id number] Accession Number(s): [id number] Report Number: [id number] PROCEDURE INFORMATION: Exam: CT Cervical Spine Without Contrast Exam date and time: 11/10/2019 2:30 PM Age: 84 years old Clinical indication: Injury or trauma; Fall; Initial encounter; Blunt trauma; Additional info: Trauma skilled nursing PT, PT fell out of bed TECHNIQUE: Imaging protocol: Computed tomography images of the cervical spine without contrast. Axial, coronal and sagittal reformatted images were created and reviewed. Total DLP: 583.64 mGy-cm Radiation optimization: All CT scans at this facility use at least one of these dose optimization techniques: automated exposure control; mA and/or kV adjustment per patient size (includes targeted exams where dose is matched to clinical indication); or iterative reconstruction. COMPARISON: No relevant prior studies available. FINDINGS: Vertebrae: Osteopenia. Normal cervical lordosis. Mild retrolisthesis of C3 on C4, C4 on C5 and C5 on C6. Alignment otherwise anatomic. Minimal dextroscoliosis. No CT evidence of acute fracture, dislocation or subluxation. Vertebral body heights maintained. Discs/Spinal canal/Neural foramina: Mild multilevel degenerative changes, characterized by disc space narrowing, osteophytosis and uncovertebral and facet joint hypertrophy. Mild multilevel spinal canal and neural foraminal narrowing. Soft tissues: Grossly unremarkable. CT/CT cervical spin wo con* [id number] IMPRESSION: 1. No CT evidence of acute cervical spine traumatic injury. 2. Additional findings, as above. Radiation Dose CTDIVOL = (mGy): DLP = 583.64 (mGy-cm) Dictated By:Tonio Khan MD Signed By:Tonio Khan MDSigned Date/Time:11/10/[address]: Radiologist's impression: CT Scan Report Signed Patient: Rachelle Apodaca #: [id number] : 8Acct#:[id number] Age/Sex: 84 / FADM Date: 11/10/19 Loc: ERRoom/Bed: Attending Dr: Ordering Provider/Ordering MD: Renetta Abraham DO Date of Service: 11/10/19 Procedure(s): CT thoracic spin wo con* [id number] Accession Number(s): [id number] Report Number: [id number] PROCEDURE INFORMATION: Exam: CT Thoracic Spine Without Contrast Exam date and time: 11/10/2019 2:30 PM Age: 84 years old Clinical indication: Injury or trauma; Fall; Initial encounter; Blunt trauma (contusions or hematomas); Additional info: Trauma skilled nursing PT, PT fell out of bed TECHNIQUE: Imaging protocol: Computed tomography images of the thoracic spine without contrast. Axial, coronal and sagittal reformatted images were created and reviewed. Total DLP: 1980.87 mGy-cm Radiation optimization: All CT scans at this facility use at least one of these dose optimization techniques: automated exposure control; mA and/or kV adjustment per patient size (includes targeted exams where dose is matched to clinical indication); or iterative reconstruction. COMPARISON: No relevant prior studies available. FINDINGS: Vertebrae: Osteopenia. Normal thoracic kyphosis. Alignment anatomic. Mild dextroscoliosis. No CT evidence of acute fracture, dislocation or subluxation. Vertebral body heights maintained. Discs/Spinal canal/Neural foramina: Mild multilevel spondylosis. Mild spinal canal and neural foraminal narrowing at T11-T12. No critical stenosis. Soft tissues: Unremarkable. CT/CT thoracic spin wo con* [id number] IMPRESSION: 1. No CT evidence of acute thoracic spine traumatic injury. 2. Additional findings, as above. Radiation Dose CTDIVOL = (mGy): DLP = 1980.87 (mGy-cm) Dictated By:Tonio Khan MD Signed By:Tonio Khan MDSigned Date/Time:11/10/191544 DD/ 43 Patient: Rahcelle Apodaca #: [id number] : 8Acct#:[id number] Age/Sex: 84 / FADM Date: 11/10/19 Loc: ERRoom/Bed: Attending Dr: Ordering Provider/Ordering MD: Renetta Abraham DO Date of Service: 11/10/19 Procedure(s): CT lumbar spine wo con* [id number] Accession Number(s): [id number] Report Number: [id number] PROCEDURE INFORMATION: Exam: CT Lumbar Spine Without Contrast Exam date and time: 11/10/2019 2:30 PM Age: 84 years old Clinical indication: Injury or trauma; Fall; Initial encounter; Blunt trauma (contusions or hematomas) TECHNIQUE: Imaging protocol: Computed tomography images of the lumbar spine without contrast. Axial, coronal and sagittal reformatted images were created and reviewed. Total DLP: 1828.96 mGy-cm Radiation optimization: All CT scans at this facility use at least one of these dose optimization techniques: automated exposure control; mA and/or kV adjustment per patient size (includes targeted exams where dose is matched to clinical indication); or iterative reconstruction. COMPARISON: [place] [id number] 01/23/2019 2:13 PM FINDINGS: Vertebrae: Osteopenia. Normal lumbar lordosis. Grade 1 retrolisthesis of L1 on L2, L2 on L3 and L3 on L4. Alignment otherwise anatomic. No CT evidence of acute fracture, dislocation or subluxation. Vertebral body heights maintained. Bilateral laminectomy defects at L3 and L4. Discs/Spinal canal/Neural foramina: Multilevel spondylosis, characterized by disc space narrowing, osteophytosis, shallow disc bulges and facet/ligamentous hypertrophy. Mild resultant multilevel spinal canal and neural foraminal narrowing, most notably at L1-L2 and L3-L4. Soft tissues: Grossly unremarkable. Additional findings: Bilateral common iliac artery aneurysms, measuring up to 1.8 cm on the right and 1.6 cm on the left. CT/CT lumbar spine wo con* [id number] IMPRESSION: 1. No CT evidence of acute lumbar spine traumatic injury. 2. Additional findings, as above. Radiation Dose CTDIVOL = (mGy): DLP = 1828.96 (mGy-cm) Dictated By:Tonio Khan MD Signed By:Tonio Khan MDSigned Date/Time:11/10/191548 DD/ 154 CT Chest: Radiologist's impression: [address] [place] [address] CT Scan Report Signed Patient: Rachelle Apodaca #: [id number] : 8Acct#:[id number] Age/Sex: 84 / FADM Date: 11/10/19 Loc: ERRoom/Bed: Attending Dr: Ordering Provider/Ordering MD: Renetta Abraham DO Date of Service: 11/10/19 Procedure(s): CT chest w con* [id number] Accession Number(s): [id number] Report Number: [id number] PROCEDURE INFORMATION: Exam: CT Chest With Contrast Exam date and time: 11/10/2019 2:30 PM Age: 84 years old Clinical indication: Injury or trauma; Fall; Initial encounter; Blunt trauma (contusions or hematomas); Additional info: Trauma skilled nursing PT, PT fell out of bed TECHNIQUE: Imaging protocol: Computed tomography of the chest with intravenous contrast. Axial, coronal and sagittal reformatted images were created and reviewed. Total DLP: 888.77 mGy-cm Radiation optimization: All CT scans at this facility use at least one of these dose optimization techniques: automated exposure control; mA and/or kV adjustment per patient size (includes targeted exams where dose is matched to clinical indication); or iterative reconstruction. Contrast material: OMNI 300; Contrast volume: 95 ml; Contrast route: LT HAND; COMPARISON: CR XR chest 1V portable [id number] 10/08/2019 11:[address] abdomen pelvis w con* [id number] 07/28/2019 2:15:38 PM FINDINGS: Lungs: Mild linear stranding and groundglass, likely due to atelectasis and/or scarring. No consolidation. Pleural space: Unremarkable. No pneumothorax. No pleural effusion. Heart: Mild cardiomegaly. Small pericardial effusion. Pulmonary arteries: Dilatation of the main pulmonary artery segment, suggesting pulmonary hypertension. Aorta: Moderate to severe atherosclerotic disease. No aneurysm or dissection. Engorgement of the portal venous system with small splenorenal varices, consistent with portal hypertension. Lymph nodes: No pathologically enlarged lymph nodes. Liver: Nodular hepatic contour, consistent with cirrhosis. Indeterminate 1.7 x 1.2 cm low-density lesion in the right hepatic lobe, similar to prior. Gallbladder and bile ducts: Status post cholecystectomy. No biliary ductal dilatation. Spleen: Moderate splenomegaly. Bones/joints: Osteopenia. Degenerative changes. Fixation hardware in the left clavicle. Old right lateral 7th rib deformity. Soft tissues: Status post right mastectomy. CT/CT chest w con* [id number] IMPRESSION: 1. No CT evidence of acute intrathoracic traumatic injury. 2. Mild cardiomegaly and small pericardial effusion. 3. Dilatation of the main pulmonary artery segment, suggesting pulmonary hypertension. 4. Cirrhosis with evidence of portal hypertension and splenomegaly. 5. Indeterminate 1.7 x 1.2 cm low-density lesion in the right hepatic lobe, similar to prior. If clinically indicated, ultrasound or multiphasic CT/MRI may be obtained. 6. Additional findings, as above. Radiation Dose CTDIVOL = (mGy): DLP = 888.77 (mGy-cm) Dictated By:Tonio Khan MD Signed By:Tonio Khanigned Date/Time:11/10/19 5213 Discharge Plan Discharge Patient Disposition: [facility] Clinical Impression: Back pain due to injury Fall Qualifiers: Encounter type: initial encounter Qualified Code(s): W19.XXXA - Unspecified fall, initial encounter Acute cervical myofascial strain Qualifiers: Encounter type: initial encounter Qualified Code(s): S16.1XXA - Strain of muscle, fascia and tendon at neck level, initial encounter Contusion of shoulder, right Qualifiers: Encounter type: initial encounter Qualified Code(s): S40.011A - Contusion of right shoulder, initial encounter Condition: Stable Prescriptions: No Action donepezil 10 mg Tablet 10 mg PO BEDTIME RF: 0 levothyroxine 125 mcg Tablet 125 mcg PO DAILY RF: 0 lactulose 20 gram/30 mL solution 15 ml PO TID RF: 0 acetaminophen 325 mg Tablet 650 mg PO Q4H PRN (Reason: Pain) RF: 0 metoprolol succinate 50 mg Tablet Extended Release 24 Hr 50 mg PO DAILY RF: 0 Milk of Magnesia 400 mg/5 mL Suspension 400 mg PO DAILY PRN (Reason: Constipation) RF: 0 bisacodyl 10 mg Suppository 10 mg OR DAILY PRN (Reason: Constipation) RF: 0 Enema Disposable 19-7 gram/118 mL Enema 118 ml OR DAILY PRN (Reason: Constipation) RF: 0 buspirone 7.5 mg Tablet 7.5 mg PO BID RF: 0 potassium chloride 20 mEq Tablet Extended Release 20 meq PO BEDTIME RF: 0 citalopram 20 mg tablet 10 mg PO DAILY RF: 0 Discharge Orders: Discharge Order (Routine); Ordered 11/10/19 Ordered By: Renetta Abraham Referrals: Jef Montesinos DO [Primary Care Provider] - 1-3 days Discharge Diet: Advance as tolerated Discharge Activity: Resume usual activity Patient Instructions: Cervical Spine Strain (ED) Activity Restrictions/Additional Instructions: f/u with pcp in 1-2 days, return if worse, any problem, any change. Discharge Date/Time: 11/10/19 18:32 Sign Out Sign Out Data: Patient Sign Out occurred on 11/10/19 at 17:10. Patient's care was discussed, and care was transferred from to RANJEET Crow. 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 Abraham. She is a skilled nursing patient. She was having pain when trying to transfer. CT of the pelvis, his negative for acute occult fracture. She will be allowed back to the skilled nursing. We will prescribe some pain medication to help her through. Lab Data: Labs: Lab Results 11/10/19 11/10/19 Range/Units 15:30 15:30 WBC 4.1 (4.0-10.0) 10^3/ uL RBC 3.95 L (4.1-5.3) 10^6/u L Hgb 12.2 (11.5-15.3) g/dL Hct 37.8 (37.0-47.0) % MCV 95.7 (81-99) fL MCH 30.9 (28.0-34.0) pg MCHC 32.3 (30.0-36.0) g/dL RDW 15.5 H (12.1-15.1) % Plt Count 65 L (130-400) 10^3/c mm MPV 12.9 H (7.4-10.4) fL Neut % (Auto) 83.2 % Lymph % (Auto) 7.3 % Vigo % (Auto) 7.8 % Eos % (Auto) 0.2 % Baso % (Auto) 0.5 % Neut # (Auto) 3.4 (1.8-7.7) 10^3/u L Lymph # (Auto) 0.3 L (0.8-4.8) 10^3/u L Vigo # (Auto) 0.3 (0.2-0.9) 10^3/u L Eos # (Auto) 0.0 (0.0-0.8) 10^3/u L Baso # (Auto) 0.0 (0.0-0.1) 10^3/u L Nucleated RBC % (a uto) 0 % Nucleated RBCs # 0.0 /100WBC Sodium 140 (136-145) mmol/L Potassium 4.5 (3.5-5.1) mmol/L Chloride 106 (98-107) mmol/L Carbon Dioxide 24 (22-29) mmol/L Anion Gap 14.5 (5-19) BUN 17 (8-23) mg/dL Creatinine 0.8 (0.5-0.9) mg/dL Glucose 116 H (65-115) mg/dL Calculated Osmolal ity 287 (285-295) mOsm/k g Calcium 9.2 (8.5-10.5) mg/dL Total Bilirubin 2.6 H (0.15-1.2) mg/dL AST 27 (0-32) U/L ALT 14 (0-33) U/L Alkaline Phosphata se 83 (35-105) IU/L Total Protein 6.2 L (6.6-8.7) g/dL Albumin 3.9 (3.5-5.2) g/dL Globulin 2.3 (1.3-4.6) g/dL Discharge Plan Discharge Patient Disposition: [facility] Clinical Impression: Back pain due to injury Fall Qualifiers: Encounter type: initial encounter Qualified Code(s): W19.XXXA - Unspecified fall, initial encounter Acute cervical myofascial strain Qualifiers: Encounter type: initial encounter Qualified Code(s): S16.1XXA - Strain of muscle, fascia and tendon at neck level, initial encounter Contusion of shoulder, right Qualifiers: Encounter type: initial encounter Qualified Code(s): S40.011A - Contusion of right shoulder, initial encounter Condition: Stable Prescriptions: No Action donepezil 10 mg Tablet 10 mg PO BEDTIME RF: 0 levothyroxine 125 mcg Tablet 125 mcg PO DAILY RF: 0 lactulose 20 gram/30 mL solution 15 ml PO TID RF: 0 acetaminophen 325 mg Tablet 650 mg PO Q4H PRN (Reason: Pain) RF: 0 metoprolol succinate 50 mg Tablet Extended Release 24 Hr 50 mg PO DAILY RF: 0 Milk of Magnesia 400 mg/5 mL Suspension 400 mg PO DAILY PRN (Reason: Constipation) RF: 0 bisacodyl 10 mg Suppository 10 mg OR DAILY PRN (Reason: Constipation) RF: 0 Enema Disposable 19-7 gram/118 mL Enema 118 ml OR DAILY PRN (Reason: Constipation) RF: 0 buspirone 7.5 mg Tablet 7.5 mg PO BID RF: 0 potassium chloride 20 mEq Tablet Extended Release 20 meq PO BEDTIME RF: 0 citalopram 20 mg tablet 10 mg PO DAILY RF: 0 Discharge Orders: Discharge Order (Routine); Ordered 11/10/19 Ordered By: Renetta Abraham Referrals: Jef Montesinos DO [Primary Care Provider] - 1-3 days Discharge Diet: Advance as tolerated Discharge Activity: Resume usual activity Patient Instructions: Cervical Spine Strain (ED) Activity Restrictions/Additional Instructions: f/u with pcp in 1-2 days, return if worse, any problem, any change. Discharge Date/Time: 11/10/19 18:32 Sign Out Sign Out Data: Patient Sign Out occurred on 11/10/19 at 17:10. Patient's care was discussed, and care was transferred from to RANJEET Crow. 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 Thrombocytopenia Surgical History H/O knee surgery H/O mastectomy History of hip surgery Family History Daughter CAD (coronary artery disease) Other Diabetes Social History Smoking and tobacco status: never smoked Alcohol intake: never Course Vital Signs: Vital signs: Vital Signs Temperature 98.7 F 11/10/19 14:03 Pulse Rate 66 11/10/19 17:46 Respiratory Rate 16 11/10/19 18:00 Blood Pressure 162/84 11/10/19 17:46 Pulse Oximetry 94 11/10/19 18:00 MDM - Fall Lab Data: Labs: Lab Results 11/10/19 11/10/19 Range/Units 15:30 15:30 WBC 4.1 (4.0-10.0) 10^3/ uL RBC 3.95 L (4.1-5.3) 10^6/u L Hgb 12.2 (11.5-15.3) g/dL Hct 37.8 (37.0-47.0) % MCV 95.7 (81-99) fL MCH 30.9 (28.0-34.0) pg MCHC 32.3 (30.0-36.0) g/dL RDW 15.5 H (12.1-15.1) % Plt Count 65 L (130-400) 10^3/c mm MPV 12.9 H (7.4-10.4) fL Neut % (Auto) 83.2 % Lymph % (Auto) 7.3 % Vigo % (Auto) 7.8 % Eos % (Auto) 0.2 % Baso % (Auto) 0.5 % Neut # (Auto) 3.4 (1.8-7.7) 10^3/u L Lymph # (Auto) 0.3 L (0.8-4.8) 10^3/u L Vigo # (Auto) 0.3 (0.2-0.9) 10^3/u L Eos # (Auto) 0.0 (0.0-0.8) 10^3/u L Baso # (Auto) 0.0 (0.0-0.1) 10^3/u L Nucleated RBC % (a uto) 0 % Nucleated RBCs # 0.0 /100WBC Sodium 140 (136-145) mmol/L Potassium 4.5 (3.5-5.1) mmol/L Chloride 106 (98-107) mmol/L Carbon Dioxide 24 (22-29) mmol/L Anion Gap 14.5 (5-19) BUN 17 (8-23) mg/dL Creatinine 0.8 (0.5-0.9) mg/dL Glucose 116 H (65-115) mg/dL Calculated Osmolal ity 287 (285-295) mOsm/k g Calcium 9.2 (8.5-10.5) mg/dL Total Bilirubin 2.6 H (0.15-1.2) mg/dL AST 27 (0-32) U/L ALT 14 (0-33) U/L Alkaline Phosphata se 83 (35-105) IU/L Total Protein 6.2 L (6.6-8.7) g/dL Albumin 3.9 (3.5-5.2) g/dL Globulin 2.3 (1.3-4.6) g/dL Discharge Plan Discharge Patient Disposition: [facility] Clinical Impression: Back pain due to injury Fall Qualifiers: Encounter type: initial encounter Qualified Code(s): W19.XXXA - Unspecified fall, initial encounter Acute cervical myofascial strain Qualifiers: Encounter type: initial encounter Qualified Code(s): S16.1XXA - Strain of muscle, fascia and tendon at neck level, initial encounter Contusion of shoulder, right Qualifiers: Encounter type: initial encounter Qualified Code(s): S40.011A - Contusion of right shoulder, initial encounter Condition: Stable Prescriptions: No Action donepezil 10 mg Tablet 10 mg PO BEDTIME RF: 0 levothyroxine 125 mcg Tablet 125 mcg PO DAILY RF: 0 lactulose 20 gram/30 mL solution 15 ml PO TID RF: 0 acetaminophen 325 mg Tablet 650 mg PO Q4H PRN (Reason: Pain) RF: 0 metoprolol succinate 50 mg Tablet Extended Release 24 Hr 50 mg PO DAILY RF: 0 Milk of Magnesia 400 mg/5 mL Suspension 400 mg PO DAILY PRN (Reason: Constipation) RF: 0 bisacodyl 10 mg Suppository 10 mg OR DAILY PRN (Reason: Constipation) RF: 0 Enema Disposable 19-7 gram/118 mL Enema 118 ml OR DAILY PRN (Reason: Constipation) RF: 0 buspirone 7.5 mg Tablet 7.5 mg PO BID RF: 0 potassium chloride 20 mEq Tablet Extended Release 20 meq PO BEDTIME RF: 0 citalopram 20 mg tablet 10 mg PO DAILY RF: 0 Discharge Orders: Discharge Order (Routine); Ordered 11/10/19 Ordered By: Renetta Abraham Referrals: Jef Montesinos DO [Primary Care Provider] - 1-3 days Discharge Diet: Advance as tolerated Discharge Activity: Resume usual activity Patient Instructions: Cervical Spine Strain (ED) Activity Restrictions/Additional Instructions: f/u with pcp in 1-2 days, return if worse, any problem, any change. Discharge Date/Time: 11/10/19 18:32 Sign Out Sign Out Data: Patient Sign Out occurred on 11/10/19 at 17:10. Patient's care was discussed, and care was transferred from to RANJEET Crow. Coding Level of Care Code ED Co Founder And Director for [facility] Fwd Exam Comprehensive
--- NOTE | 2019-11-10 14:25 | CTR_ITS ---
PROCEDURE INFORMATION: Exam: CT Lumbar Spine Without Contrast Exam date and time: 11/10/2019 2:30 PM Age: 84 years old Clinical indication: Injury or trauma; Fall; Initial encounter; Blunt trauma (contusions or hematomas) TECHNIQUE: Imaging protocol: Computed tomography images of the lumbar spine without contrast. Axial, coronal and sagittal reformatted images were created and reviewed. Total DLP: 1828.96 mGy-cm Radiation optimization: All CT scans at this facility use at least one of these dose optimization techniques: automated exposure control; mA and/or kV adjustment per patient size (includes targeted exams where dose is matched to clinical indication); or iterative reconstruction. COMPARISON: [place] [id number] 01/23/2019 2:13 PM FINDINGS: Vertebrae: Osteopenia. Normal lumbar lordosis. Grade 1 retrolisthesis of L1 on L2, L2 on L3 and L3 on L4. Alignment otherwise anatomic. No CT evidence of acute fracture, dislocation or subluxation. Vertebral body heights maintained. Bilateral laminectomy defects at L3 and L4. Discs/Spinal canal/Neural foramina: Multilevel spondylosis, characterized by disc space narrowing, osteophytosis, shallow disc bulges and facet/ligamentous hypertrophy. Mild resultant multilevel spinal canal and neural foraminal narrowing, most notably at L1-L2 and L3-L4. Soft tissues: Grossly unremarkable. Additional findings: Bilateral common iliac artery aneurysms, measuring up to 1.8 cm on the right and 1.6 cm on the left. CT/CT lumbar spine wo con* [id number] IMPRESSION: 1. No CT evidence of acute lumbar spine traumatic injury. 2. Additional findings, as above. Radiation Dose CTDIVOL = (mGy): DLP = 1828.96 (mGy-cm)
--- NOTE | 2019-11-10 14:25 | XRR_ITS ---
PROCEDURE INFORMATION: Exam: XR Right Tibia and Fibula Exam date and time: 11/10/2019 2:28 PM Age: 84 years old Clinical indication: Injury or trauma; Fall; Initial encounter; Blunt trauma; Lower leg; Right; Prior surgery; Surgery date: 6+ months; Surgery type: Knee, hip and ankle; Patient HX: long term PT, PT fell out of bed TECHNIQUE: Imaging protocol: XR Right tibia and fibula. Views: 2 views. COMPARISON: No relevant prior studies available. FINDINGS: Bones/joints: Metallic knee arthroplasty is seen in good position. Metallic screws are seen in the medial and lateral malleolus. The bones show anatomic alignment. Soft tissues are unremarkable Soft tissues: Normal. XR/XR tibia fibula RT 2V [id number] IMPRESSION: No acute findings. Metallic knee replacement in good position. Metallic screws and pin in the ankle
--- NOTE | 2019-11-10 14:25 | CTR_ITS ---
PROCEDURE INFORMATION: Exam: CT Cervical Spine Without Contrast Exam date and time: 11/10/2019 2:30 PM Age: 84 years old Clinical indication: Injury or trauma; Fall; Initial encounter; Blunt trauma; Additional info: Trauma care home PT, PT fell out of bed TECHNIQUE: Imaging protocol: Computed tomography images of the cervical spine without contrast. Axial, coronal and sagittal reformatted images were created and reviewed. Total DLP: 583.64 mGy-cm Radiation optimization: All CT scans at this facility use at least one of these dose optimization techniques: automated exposure control; mA and/or kV adjustment per patient size (includes targeted exams where dose is matched to clinical indication); or iterative reconstruction. COMPARISON: No relevant prior studies available. FINDINGS: Vertebrae: Osteopenia. Normal cervical lordosis. Mild retrolisthesis of C3 on C4, C4 on C5 and C5 on C6. Alignment otherwise anatomic. Minimal dextroscoliosis. No CT evidence of acute fracture, dislocation or subluxation. Vertebral body heights maintained. Discs/Spinal canal/Neural foramina: Mild multilevel degenerative changes, characterized by disc space narrowing, osteophytosis and uncovertebral and facet joint hypertrophy. Mild multilevel spinal canal and neural foraminal narrowing. Soft tissues: Grossly unremarkable. CT/CT cervical spin wo con* [id number] [address]PRESSION: 1. No CT evidence of acute cervical spine traumatic injury. 2. Additional findings, as above. Radiation Dose CTDIVOL = (mGy): DLP = 583.64 (mGy-cm)
--- NOTE | 2019-11-10 14:25 | XRR_ITS ---
PROCEDURE INFORMATION: Exam: XR Right Hip with Pelvis when Performed Exam date and time: 11/10/2019 3:03 PM Age: 84 years old Clinical indication: Injury or trauma; Fall; Initial encounter; Blunt trauma (contusions or hematomas); Right; Injury details: senior care PT, PT fell out of bed pain all over; Prior surgery; Surgery date: 6+ months; Surgery type: Hip, knee, ankle TECHNIQUE: Imaging protocol: XR Right hip with pelvis when performed. Views: 2 or 3 views. COMPARISON: CR Hips Nik 5v wwo Pelvis* [id number] 01/23/2019 12:37 PM FINDINGS: Bones/joints: Unremarkable. No acute fracture. There is dynamic screw in place in the proximal right hip. The bones show anatomic alignment. A metallic plate and screws are seen in the lateral aspect of the mid shaft right femur. There is generalized osteopenia seen. No acute bony abnormality is seen. Soft tissues: Unremarkable. XR/XR hip RT 2-3V wo/w pel* [id number] IMPRESSION: Metallic orthopedic hardware is seen in the right hip and mid right femur. Negative for acute bony abnormality
--- NOTE | 2019-11-10 14:25 | CTR_ITS ---
PROCEDURE INFORMATION: Exam: CT Head Without Contrast Exam date and time: 11/10/2019 2:30 PM Age: 84 years old Clinical indication: Injury or trauma; Fall; Additional info: Trauma prison PT, PT fell out of bed. Pain all over TECHNIQUE: Imaging protocol: Computed tomography of the head without contrast. Axial, coronal and sagittal reformatted images were created and reviewed. Total DLP: 951.98 mGy-cm Radiation optimization: All CT scans at this facility use at least one of these dose optimization techniques: automated exposure control; mA and/or kV adjustment per patient size (includes targeted exams where dose is matched to clinical indication); or iterative reconstruction. COMPARISON: CT head wo con* [id number] 10/03/2019 11:45 PM FINDINGS: Brain: 3 mm rounded hyperdensity in the left high parietal lobe (series 2, image 52), similar to prior and therefore likely representing a small calcification. Patchy areas of hypoattenuation in the periventricular and subcortical white matter, consistent with chronic small vessel ischemic disease. No CT evidence of acute territorial infarction. No significant mass effect or midline shift. Basal cisterns patent. Ventricles: Prominence of the cortical sulci, cisterns and ventricular system, consistent with cerebral and cerebellar volume loss. Bones/joints: No acute osseous abnormality. Sinuses: Mild ethmoid and right maxillary sinus mucosal thickening. Mastoid air cells: Grossly unremarkable. Soft tissues: Grossly unremarkable. Vasculature: Calcific atherosclerotic disease in the cavernous internal carotid arteries, as well as the vertebro-basilar system. CT/CT head wo con* [id number] IMPRESSION: 1. 3 mm rounded hyperdensity in the left high parietal lobe, similar to prior and therefore likely representing a small calcification. A small unchanged cortical contusion cannot be definitively excluded. 2. Additional findings, as above. Radiation Dose CTDIVOL = (mGy): DLP = 951.98 (mGy-cm)
--- NOTE | 2019-11-10 14:25 | XRR_ITS ---
PROCEDURE INFORMATION: Exam: XR Left Hip with Pelvis when Performed Exam date and time: 11/10/2019 3:03 PM Age: 84 years old Clinical indication: Injury or trauma; Fall; Initial encounter; Blunt trauma (contusions or hematomas); Left; Hip TECHNIQUE: Imaging protocol: XR Left hip with pelvis when performed. Views: 2 or 3 views. COMPARISON: CR Hips Nik 5v wwo Pelvis* [id number] 01/23/2019 12:37 PM FINDINGS: Bones/joints: There is metallic dynamic plate and screws in the proximal right hip. The bones of show anatomic alignment. No acute bony abnormality is seen. No acute fracture. Soft tissues: Unremarkable. XR/XR hip LT 2-3V wo/w pel* [id number] IMPRESSION: Postsurgical hardware right hip No acute findings.
--- NOTE | 2019-11-10 14:25 | CTR_ITS ---
PROCEDURE INFORMATION: Exam: CT Thoracic Spine Without Contrast Exam date and time: 11/10/2019 2:30 PM Age: 84 years old Clinical indication: Injury or trauma; Fall; Initial encounter; Blunt trauma (contusions or hematomas); Additional info: Trauma group home PT, PT fell out of bed TECHNIQUE: Imaging protocol: Computed tomography images of the thoracic spine without contrast. Axial, coronal and sagittal reformatted images were created and reviewed. Total DLP: 1980.87 mGy-cm Radiation optimization: All CT scans at this facility use at least one of these dose optimization techniques: automated exposure control; mA and/or kV adjustment per patient size (includes targeted exams where dose is matched to clinical indication); or iterative reconstruction. COMPARISON: No relevant prior studies available. FINDINGS: Vertebrae: Osteopenia. Normal thoracic kyphosis. Alignment anatomic. Mild dextroscoliosis. No CT evidence of acute fracture, dislocation or subluxation. Vertebral body heights maintained. Discs/Spinal canal/Neural foramina: Mild multilevel spondylosis. Mild spinal canal and neural foraminal narrowing at T11-T12. No critical stenosis. Soft tissues: Unremarkable. CT/CT thoracic spin wo con* [id number] IMPRESSION: 1. No CT evidence of acute thoracic spine traumatic injury. 2. Additional findings, as above. Radiation Dose CTDIVOL = (mGy): DLP = 1979.87 (mGy-cm)
--- NOTE | 2019-11-10 14:25 | XRR_ITS ---
PROCEDURE INFORMATION: Exam: XR Right Shoulder Exam date and time: 11/10/2019 3:01 PM Age: 84 years old Clinical indication: Injury or trauma; Fall; Initial encounter; Blunt trauma (contusions or hematomas; Shoulder; Right TECHNIQUE: Imaging protocol: XR Right shoulder. Views: 2 or more views. COMPARISON: No relevant prior studies available. FINDINGS: Bones/joints: Negative for acute bony abnormality Soft tissues: Metallic surgical clips right upper chest. XR/XR shoulder RT min 2V* [id number] IMPRESSION: No acute findings. Metallic surgical clips right upper chest.
--- NOTE | 2019-11-10 14:25 | CTR_ITS ---
PROCEDURE INFORMATION: Exam: CT Chest With Contrast Exam date and time: 11/10/2019 2:30 PM Age: 84 years old Clinical indication: Injury or trauma; Fall; Initial encounter; Blunt trauma (contusions or hematomas); Additional info: Trauma correction PT, PT fell out of bed TECHNIQUE: Imaging protocol: Computed tomography of the chest with intravenous contrast. Axial, coronal and sagittal reformatted images were created and reviewed. Total DLP: 888.77 mGy-cm Radiation optimization: All CT scans at this facility use at least one of these dose optimization techniques: automated exposure control; mA and/or kV adjustment per patient size (includes targeted exams where dose is matched to clinical indication); or iterative reconstruction. Contrast material: OMNI 300; Contrast volume: 95 ml; Contrast route: LT HAND; COMPARISON: CR XR chest 1V portable [id number] 10/08/2019 11:[address] abdomen pelvis w con* [id number] 07/28/2019 2:15:38 PM FINDINGS: Lungs: Mild linear stranding and groundglass, likely due to atelectasis and/or scarring. No consolidation. Pleural space: Unremarkable. No pneumothorax. No pleural effusion. Heart: Mild cardiomegaly. Small pericardial effusion. Pulmonary arteries: Dilatation of the main pulmonary artery segment, suggesting pulmonary hypertension. Aorta: Moderate to severe atherosclerotic disease. No aneurysm or dissection. Engorgement of the portal venous system with small splenorenal varices, consistent with portal hypertension. Lymph nodes: No pathologically enlarged lymph nodes. Liver: Nodular hepatic contour, consistent with cirrhosis. Indeterminate 1.7 x 1.2 cm low-density lesion in the right hepatic lobe, similar to prior. Gallbladder and bile ducts: Status post cholecystectomy. No biliary ductal dilatation. Spleen: Moderate splenomegaly. Bones/joints: Osteopenia. Degenerative changes. Fixation hardware in the left clavicle. Old right lateral 7th rib deformity. Soft tissues: Status post right mastectomy. CT/CT chest w con* [id number]: 1[address] No CT evidence of acute intrathoracic traumatic injury. 2. Mild cardiomegaly and small pericardial effusion. 3. Dilatation of the main pulmonary artery segment, suggesting pulmonary hypertension. 4. Cirrhosis with evidence of portal hypertension and splenomegaly. 5. Indeterminate 1.7 x 1.2 cm low-density lesion in the right hepatic lobe, similar to prior. If clinically indicated, ultrasound or multiphasic CT/MRI may be obtained. 6. Additional findings, as above. Radiation Dose CTDIVOL = (mGy): DLP = 888.77 (mGy-cm)
[2019-11-10] MEDS: ondansetron 2 mg/ML SDV 2 mL 4 MG IVP (14:46)
[2019-11-10] MEDS: morphine 4 mg/mL SDV 1 mL IVP (14:46)
[2019-11-10] MEDS: iohexol 300 mg/mL 100 mL Btl IV (15:20)
[2019-11-10] MEDS: tetanus-dipt-pertussis 0.5 mL SDV IM (15:31)
[2019-11-10 15:55] LABS: Basophils % 0.5 %; Eosinophils % 0.2 %; Hematocrit 37.8 % (37.0-47.0); Hemoglobin 12.2 g/dL (11.5-15.3); Lymphocytes # 0.3 10^3/uL (0.8-4.8); Lymphocytes % 7.3 %; Mean Corpuscular HGB Conc 32.3 g/dL (30.0-36.0); Mean Corpuscular Hemoglobin 30.9 pg (28.0-34.0); Mean Corpuscular Volume 95.7 fL (81-99); Mean Platelet Volume 12.9 fL (7.4-10.4); Monocytes # 0.3 10^3/uL (0.2-0.9); Monocytes % 7.8 %; Neutrophils # 3.4 10^3/uL (1.8-7.7); Neutrophils % 83.2 %; Nucleated Red Blood Cells % 0 %; Platelet Count 65 10^3/cmm (130-400); Red Blood Count 3.95 10^6/uL (4.1-5.3); Red Cell Distribution Width 15.5 % (12.1-15.1); White Blood Count 4.1 10^3/uL (4.0-10.0)
[2019-11-10 16:13] LABS: Alanine Aminotransferase 14 U/L (0-33); Albumin Level 3.9 g/dL (3.5-5.2); Alkaline Phosphatase 83 IU/L (35-105); Anion Gap 14.5 (5-19); Aspartate Amino Transferase 27 U/L (0-32); Blood Urea Nitrogen 17 mg/dL (8-23); Calcium 9.2 mg/dL (8.5-10.5); Carbon Dioxide 24 mmol/L (22-29); Chloride 106 mmol/L (98-107); Globulin 2.3 g/dL (1.3-4.6); Glucose 116 mg/dL (65-115); Osmolality Calculated 287 mOsm/kg (285-295); Potassium 4.5 mmol/L (3.5-5.1); Sodium 140 mmol/L (136-145); Total Bilirubin 2.6 mg/dL (0.15-1.2); Total Protein 6.2 g/dL (6.6-8.7)
[2019-11-10] MEDS: HYDROcodone-acetaminophen 7.5-325 mg Tablet 1 TAB PO (16:36)
--- NOTE | 2019-11-10 16:44 | CTR_ITS ---
PROCEDURE INFORMATION: Exam: CT Pelvis Without Contrast; Skeletal Exam date and time: 11/10/2019 4:48 PM Age: 84 years old Clinical indication: Injury or trauma; Fall; Initial encounter; Blunt trauma (contusions or hematomas); Bilateral; Prior surgery; Surgery date: 6+ months; Surgery type: Hip, knee ankle; Additional info: Trauma, cant bear weight TECHNIQUE: Imaging protocol: Computed tomography images of the pelvis without contrast. Exam focused on the skeletal structures. Axial, coronal and sagittal reformatted images were created and reviewed. Total DLP: 1044.69 mGy-cm Radiation optimization: All CT scans at this facility use at least one of these dose optimization techniques: automated exposure control; mA and/or kV adjustment per patient size (includes targeted exams where dose is matched to clinical indication); or iterative reconstruction. COMPARISON: CT abdomen pelvis w con* [id number] 07/28/2019 2:15 PM FINDINGS: Stomach and bowel: Scattered colonic diverticula. Small left ventral abdominal wall hernia containing a nonobstructed loop of small bowel. Reproductive: Coarse uterine calcifications, likely due to fibroids. Vasculature: Severe atherosclerotic disease. Bilateral common iliac artery aneurysms, measuring up to 1.8 cm on the right and 1.6 cm on the left. Bones/joints: Osteopenia. No CT evidence of acute fracture or dislocation. Alignment anatomic. Old fractures of the right superior pubic ramus/parasymphyseal pubic bone, as well as the left superior and inferior pubic rami. Mild chronic deformity of the lower sacrum. Fixation hardware in the right proximal femur. Mild bilateral hip joint osteoarthrosis. Degenerative changes of the lower lumbar spine, sacroiliac joints and pubic symphysis. Soft tissues: Unremarkable. CT/CT bony pelvis [id number] IMPRESSION: 1. No CT evidence of acute fracture or dislocation. 2. Additional findings, as above. Radiation Dose CTDIVOL = (mGy): DLP = 1044.69 (mGy-cm)
== END 2019-11-10 18:32 | disposition skilled nursing facility (03) ==
PROVIDERS: Emergency Medicine; Emergency Provider Emergency Medicine; PCP Internal Medicine
DX: S16.1XXA Strain of muscle, fascia and tendon at neck level, initial encounter (principal); S40.011A Contusion of right shoulder, initial encounter; W19.XXXA Unspecified fall, initial encounter; Z85.3 Personal history of malignant neoplasm of breast; Z82.49 Family history of ischemic heart disease and other diseases of the circulatory system; Z83.3 Family history of diabetes mellitus; Z23 Encounter for immunization
CPT/HCPCS: 12345; 36415; 70450; 71260; 72125; 72128; 72131; 72192; 73030; 73502; 73590; 80053; 85025; 90471; 90715; 96372; 96374; 96375; 99282; 99284; J2270; J2405; Q9967